=== PATIENT | female | born 1940 | race African-American/Black ===

== ENCOUNTER → 2016-05-25 | Outpatient (CLI) | payer MEDICARE ==
[2016-04-02 11:00] VITALS: BP 111/63
[~2016-05-25] MED LIST: ACET325T9 PO; ALLO300T PO; AMLO10TA4 PO; ASCO500T PO; ATOR10TA60 PO; ATORVASTATIN CA80 MG PO; CALC-67 PO; CALC667T PO; CLON0.1T PO; DOCU-27 PO; ESOM40SU PO; FERR325T58 PO; FURO80TA3 PO; FURO80TA72 PO; GLUC1CAP48 PO; HUM100VI5; HYDR-2869 PO; HYDR-923 PO; HYDR-965 PO; HYDR-971 PO; INSU100I13 SQ; INSU100I27 SQ; INSU100I9 SQ; INSU100V13 SQ; LATA2.5D3 EACHEYE; LEVO125T5 PO; LEVO175T5 PO; LISI-334 PO; LISI20TA PO; LISI40TA PO; METO5TAB4 PO; OMEP40CA5 PO; OXYC5TAB PO; POLY255P PO; POTA20PA8 PO; POTA20TA84 PO; PROC5TAB PO; SENN1TAB29 PO; SENN8.6C2 PO; TIMO5DRO26 EACHEYE; TIMO5DRO5 EACHEYE; TIMO5SOL4 EACHEYE; TORS20TA2 PO; TRIA10.8 NS
--- NOTE | 2016-05-25 12:24 | RAD ---
Radionuclide gastric emptying study, 05/25/2016: History: Nausea and vomiting The study was performed utilizing a solid test radiolabeled with 2.1 mCi of technetium 99m sulfur colloid. The time to half emptying of the test meal from the patient's stomach was estimated at 86 minutes. A normal T1/2 is 60 minutes +/- 30 minutes. IMPRESSION: Normal gastric emptying time
== END | disposition home or self-care (01) ==
LOC: NM 08:11
PROVIDERS: ATTEND Nurse Practitioner
DX: R11.2 Nausea with vomiting, unspecified (principal)
CPT/HCPCS: 78264; A9541

== ENCOUNTER 2016-06-15 15:13 | Emergency (ER) | payer MEDICARE ==
[~2016-06-15] VITALS: Ht 154.9 cm; Wt 89.4 kg
[2016-06-15] MEDS ORDERED: IV NORMAL SALINE 250ML 250 ML IV ONE (16:30)
[2016-06-15 17:16] LABS: BASO # 0.1 x10^3/uL (0.0-0.2); BASO % 2 % (0-3); EOS % 1 % (0-3); HEMATOCRIT 36.4 % (36.0-47.0); HEMOGLOBIN 11.7 g/dL (12.0-15.5); LYMPH # 1.8 x10^3/uL (1.0-4.8); LYMPH % 29 % (24-48); MEAN CORPUSCULAR HEMOGLOBIN 32 pg (25-35); MEAN CORPUSCULAR HGB CONC 32 g/dL (31-37); MEAN CORPUSCULAR VOLUME 100 fL (79-100); MONO % 8 % (0-9); NEUT % 60 % (31-73); PLATELET COUNT 289 x10^3/uL (140-400); RED BLOOD COUNT 3.64 x10^6/uL (3.50-5.40); RED CELL DISTRIBUTION WIDTH 18.6 % (11.5-14.5); WHITE BLOOD COUNT 6.3 x10^3/uL (4.0-11.0)
[2016-06-15 17:44] LABS: CALCIUM 8.7 mg/dL (8.5-10.1); GFR 8.2
[2016-06-15 17:55] LABS: ALBUMIN 1.8 g/dL (3.4-5.0); DIRECT BILIRUBIN 0.1 mg/dL (0.0-0.2); TOTAL BILIRUBIN 0.4 mg/dL (0.2-1.0); TOTAL PROTEIN 5.9 g/dL (6.4-8.2)
[2016-06-15 19:04] VITALS: BP 102/63
--- NOTE | 2016-06-15 19:32 | PHYS DOC ---
Past Medical History Past Medical History: Cancer, Diabetes-Type II, GERD, Glaucoma, Hypertension, Hypothyroid, Pancreatitis, Renal Failure Additional Past Medical Histor: CHOLESTEROL, bladder CA Past Surgical History: Cholecystectomy, Hysterectomy, Knee Replacement, Other Additional Past Surgical Histo: BLADDER CA TUMOR REMOVALS 2012, thyroidectomy, dialysis catheter placement Alcohol Use: None Drug Use: None Adult General Chief Complaint Chief Complaint: NAUSEA/VOMITING/DIARRHA HPI HPI 68-year-old female presenting to the emergency department with lightheadedness for the past 2 weeks. She denies chest pain shortness of breath abdominal pain nausea vomiting. She has a history of end-stage renal disease and currently undergoes peritoneal dialysis daily. Otherwise she denies headache fevers chills cough polyuria or dysuria. Review of systems is negative for chest pain shortness of breath nausea vomiting. All other review of systems is negative unless otherwise noted in history of present illness. Review of Systems Review of Systems SEE ABOVE. Current Medications Current Medications Current Medications Medications (Trade) Dose Ordered Sig/María Start Time Stop Time Status Last Admin Dose Admin Sodium Chloride (Iv Sodium Chloride 0.9% 250ml) 250 ml @ 250 mls/hr 1X ONCE 06/15/16 16:30 06/15/16 17:29 DC 06/15/16 16:30 250 MLS/HR Allergies Allergies Allergies Coded Allergies Type Severity Reaction Last Updated Verified Sulfa (Sulfonamide Antibiotics) Allergy Intermediate 03/12/16 Yes amlodipine Allergy Intermediate COUGH 03/12/16 Yes benazepril Allergy Intermediate COUGH 03/12/16 Yes morphine Allergy Intermediate HEADACHE 03/24/16 Yes Physical Exam Physical Exam Constitutional: Well developed, well nourished, no acute distress, non-toxic appearance. HENT: Normocephalic, atraumatic, bilateral external ears normal, oropharynx moist, no oral exudates, nose normal. Eyes: PERRLA, EOMI, conjunctiva normal, no discharge. Neck: Normal range of motion, no tenderness, supple, no stridor. [] Cardiovascular:Heart rate regular rhythm, no murmur Lungs & Thorax: Bilateral breath sounds clear to auscultation Abdomen: Soft nontender abdomen without rebound tenderness or guarding present. Negative McBurneys point. Negative Hameed sign. No ecchymosis present. Skin: Warm, dry, no erythema, no rash. [] Back: No tenderness, no CVA tenderness. [] Extremities: No tenderness, no cyanosis, no clubbing, ROM intact, no edema. Neurologic: Alert and oriented X 3, normal motor function, normal sensory function, no focal deficits noted. Psychologic: Affect normal, judgement normal, mood normal. Current Patient Data Vital Signs Vital Signs Date Time Temp Pulse Resp B/P Pulse Ox O2 Delivery O2 Flow Rate FiO2 06/15/16 19:04 96 18 102/63 Room Air 06/15/16 19:04 96 06/15/16 16:20 97.7 97.7 Lab Values Laboratory Tests Test 06/15/16 16:55 White Blood Count 6.3x10^3/uL (4.0-11.0) Red Blood Count 3.64x10^6/uL (3.50-5.40) Hemoglobin 11.7g/dL (12.0-15.5) L Hematocrit 36.4% (36.0-47.0) Mean Corpuscular Volume 100fL (79-100) Mean Corpuscular Hemoglobin 32pg (25-35) Mean Corpuscular Hemoglobin Concent 32g/dL (31-37) Red Cell Distribution Width 18.6% (11.5-14.5) H Platelet Count 289x10^3/uL (140-400) Neutrophils (%) (Auto) 60% (31-73) Lymphocytes (%) (Auto) 29% (24-48) Monocytes (%) (Auto) 8% (0-9) Eosinophils (%) (Auto) 1% (0-3) Basophils (%) (Auto) 2% (0-3) Neutrophils # (Auto) 3.8x10^3uL (1.8-7.7) Lymphocytes # (Auto) 1.8x10^3/uL (1.0-4.8) Monocytes # (Auto) 0.5x10^3/uL (0.0-1.1) Eosinophils # (Auto) 0.1x10^3/uL (0.0-0.7) Basophils # (Auto) 0.1x10^3/uL (0.0-0.2) Sodium Level 136mmol/L (136-145) Potassium Level 3.0mmol/L (3.5-5.1) L Chloride Level 96mmol/L (98-107) L Carbon Dioxide Level 31mmol/L (21-32) Anion Gap 9 (6-14) Blood Urea Nitrogen 23mg/dL (7-20) H Creatinine 6.0mg/dL (0.6-1.0) H Estimated GFR (Cockcroft-Gault) 8.2 Glucose Level 254mg/dL (70-99) H Lactic Acid Level 3.8mmol/L (0.4-2.0) H Calcium Level 8.7mg/dL (8.5-10.1) Total Bilirubin 0.4mg/dL (0.2-1.0) Direct Bilirubin 0.1mg/dL (0.0-0.2) Aspartate Amino Transferase (AST) 33U/L (15-37) Alanine Aminotransferase (ALT) 32U/L (14-59) Alkaline Phosphatase 94U/L (46-116) Troponin I Quantitative < 0.017ng/mL (0.000-0.055) OZ-Abe-W-Type Natriuretic Peptide 917pg/mL (0-449) H Total Protein 5.9g/dL (6.4-8.2) L Albumin 1.8g/dL (3.4-5.0) L Lipase 311U/L (73-393) Laboratory Tests 06/15/16 16:55 Laboratory Tests 06/15/16 16:55 EKG EKG [] EKG shows sinus rhythm with a regular rate. Small P waves identified. ST segments are congruent. Variable baseline present. Intervals within normal limits. [place] is mildly leftward. Radiology/Procedures Radiology/Procedures [] Course & Med Decision Making Course & Med Decision Making Pertinent Labs and Imaging studies reviewed. (See chart for details) [] 68-year-old female presenting to us today with lightheadedness consistent with orthostasis. Otherwise she was asymptomatic. She reported feeling dehydrated. Vital signs unremarkable. Physical exam unremarkable. Chest x-ray showed no obvious infiltrate or pneumothorax. EKG unremarkable. IV fluid bolus administration given. Blood work obtained which showed mild anemia. Chemistry panel showed hyperglycemia with known end-stage renal disease. Potassium was mildly low. Otherwise lactic acid was elevated not consistent with the rest of the patient's clinical presentation. On reevaluation the patient was feeling better. She was subsequent discharged home to follow up with her primary care doctor tomorrow morning for close follow-up and probable repeat lactic acid testing. I discussed the case with the patient's primary care physician Dr. Gonzalez who agreed to see the patient in a close follow-up visit. Dragon Disclaimer Dragon Disclaimer This electronic medical record was generated, in whole or in part, using a voice recognition dictation system. Departure Departure Impression: Primary Impression: Dehydration Disposition: 01 HOME, SELF-CARE Condition: STABLE Referrals: JOSE LUIS GONZALEZ MD (PCP) follow up tommorow Patient Instructions: Dehydration, Adult Additional Instructions: Thank you for allowing us to participate in your care today. Followup with your primary care physician tomorrow. If you do not have a primary care provider you can ask for a list of our primary care providers. Return to the emergency department you have any new or concerning findings. This should be evaluated by the primary care physician and any necessary consulting services for continued management within a few days after discharge. Return to emergency room if you have any new or concerning symptoms including but not limited to fever, chills, nausea, vomiting, intractable pain, any new rashes, chest pain, shortness of air, uncontrolled bleeding, difficulty breathing, and/or vision loss. NIDIA LARA MD Jun 15, 2016 19:32
--- NOTE | 2016-06-16 06:47 | EKG ---
[facility] [address] [place] [address] Test Date: 2016-06-15 Test Time: 16:55:49 Pat Name: CLARISSA PGUH Department: Room: Gender: F Reference Librarian: : 1940 Requested By: NIDIA LARA Order Number: [id number] Reading MD: Measurements Intervals [place] Rate: 77 P: 39 IA: 182 QRS: -22 QRSD: 76 T: -9 QT: 390 QTc: 443 Interpretive Statements SINUS RHYTHM LEFTWARD AXIS OTHERWISE NORMAL ECG RI6.01 No previous ECG available for comparison
--- NOTE | 2016-06-16 08:26 | RAD ---
INDICATION: nausea and vomiting COMPARISON: 03/28/2016 FINDINGS: Single view of chest obtained. No focal airspace consolidation. Mediastinal contour is unremarkable. No gross osseous destructive lesion. IMPRESSION: No focal airspace consolidation or edema.
== END 2016-06-15 19:43 | disposition home or self-care (01) ==
LOC: ER 15:13
DX: E86.0 Dehydration (principal); E11.22 Type 2 diabetes mellitus with diabetic chronic kidney disease; I12.0 Hypertensive chronic kidney disease with stage 5 chronic kidney disease or end stage renal disease; N18.6 End stage renal disease; Z99.2 Dependence on renal dialysis; E11.39 Type 2 diabetes mellitus with other diabetic ophthalmic complication; H40.9 Unspecified glaucoma; E89.0 Postprocedural hypothyroidism; K21.9 Gastro-esophageal reflux disease without esophagitis; Z90.49 Acquired absence of other specified parts of digestive tract; Z90.710 Acquired absence of both cervix and uterus; Z96.659 Presence of unspecified artificial knee joint; Z88.5 Allergy status to narcotic agent; Z88.2 Allergy status to sulfonamides; Z88.8 Allergy status to other drugs, medicaments and biological substances
CPT/HCPCS: 36415; 71010; 80048; 80076; 83605; 83690; 83880; 84484; 85027; 93005; 96360; 96361; 99285; J7050; J7030

== ENCOUNTER 2016-06-23 16:14 | Inpatient (IN) | payer MEDICARE ==
[~2016-06-23] VITALS: Ht 154.9 cm; Wt 94.6 kg
[2016-06-23 03:00] VITALS: BP 174/87
[2016-06-23 17:28] LABS: BASO % 1 % (0-3); EOS % 0 % (0-3); HEMOGLOBIN 11.8 g/dL (12.0-15.5); LYMPH # 1.6 x10^3/uL (1.0-4.8); LYMPH % 26 % (24-48); MEAN CORPUSCULAR HEMOGLOBIN 32 pg (25-35); MEAN CORPUSCULAR HGB CONC 33 g/dL (31-37); MEAN CORPUSCULAR VOLUME 98 fL (79-100); MONO % 8 % (0-9); NEUT % 65 % (31-73); PLATELET COUNT 312 x10^3/uL (140-400); RED BLOOD COUNT 3.67 x10^6/uL (3.50-5.40); RED CELL DISTRIBUTION WIDTH 17.7 % (11.5-14.5)
[2016-06-23] MEDS ORDERED: IV NORMAL SALINE 500ML BAG 500 ML IV ONE (17:30)
[2016-06-23 17:46] LABS: ALBUMIN 1.9 g/dL (3.4-5.0); CALCIUM 8.6 mg/dL (8.5-10.1); CREATININE 5.8 mg/dL (0.6-1.0); DIRECT BILIRUBIN 0.1 mg/dL (0.0-0.2); GFR 8.5; TOTAL BILIRUBIN 0.8 mg/dL (0.2-1.0); TOTAL PROTEIN 5.5 g/dL (6.4-8.2)
[2016-06-23 17:50] LABS: POTASSIUM 2.9 mmol/L (3.5-5.1)
[2016-06-23 19:00] VITALS: BP 130/76
[2016-06-23] MEDS ORDERED: POTASSIUM CHLORIDE 20 MEQ TABLET.ER. PO ONE (19:15)
--- NOTE | 2016-06-23 19:17 | PHYS DOC ---
Past Medical History Past Medical History: Cancer, Diabetes-Type II, GERD, Glaucoma, Hypertension, Hypothyroid, Pancreatitis, Renal Failure Additional Past Medical Histor: CHOLESTEROL, bladder CA Past Surgical History: Cholecystectomy, Hysterectomy, Knee Replacement, Other Additional Past Surgical Histo: BLADDER CA TUMOR REMOVALS 2012, thyroidectomy, dialysis catheter placement Alcohol Use: None Drug Use: None Adult General Chief Complaint Chief Complaint: NAUSEA/VOMITING/DIARRHA HPI HPI 76-year-old female presenting to the emergency department today with nausea and vomiting. She also complains of feeling weak. She was seen here last week for the same illness and discharged home. She reports following up with her primary care physician who instructed her to come back to the emergency room today. Her symptoms and present for greater than 8 days. Location GI tract. Duration intermittent. She denies abdominal pain fevers or chills. She denies upper respiratory tract infection. Nonradiating. Review of systems is negative for chest pain abdominal pain shortness of breath. Negative for fevers or chills. All other review of systems is negative unless otherwise noted in history of present illness. Review of Systems Review of Systems SEE ABOVE. Current Medications Current Medications Current Medications Medications (Trade) Dose Ordered Sig/María Start Time Stop Time Status Last Admin Dose Admin Ondansetron HCl (Zofran) 4 mg PRN Q8HRS PRN 06/23/16 18:15 06/24/16 18:14 Sodium Chloride (Iv Sodium Chloride 0.9% 500ml Bag) 500 ml @ 500 mls/hr 1X ONCE 06/23/16 17:30 06/23/16 18:29 DC 06/23/16 17:30 500 MLS/HR Allergies Allergies Allergies Coded Allergies Type Severity Reaction Last Updated Verified Sulfa (Sulfonamide Antibiotics) Allergy Intermediate 03/12/16 Yes amlodipine Allergy Intermediate COUGH 03/12/16 Yes benazepril Allergy Intermediate COUGH 03/12/16 Yes morphine Allergy Intermediate HEADACHE 03/24/16 Yes Physical Exam Physical Exam Constitutional: Well developed, well nourished, no acute distress, non-toxic appearance. HENT: Normocephalic, atraumatic, bilateral external ears normal, oropharynx moist, no oral exudates, nose normal. [] Eyes: PERRLA, EOMI, conjunctiva normal, no discharge. [] Neck: Normal range of motion, no tenderness, supple, no stridor. Cardiovascular:Heart rate regular rhythm, no murmur [] Lungs & Thorax: Bilateral breath sounds clear to auscultation Abdomen: Soft nontender abdomen without rebound tenderness or guarding present. Negative McBurneys point. Negative Hameed sign. No ecchymosis present. Skin: Warm, dry, no erythema, no rash. [] Back: No tenderness, no CVA tenderness. Extremities: No tenderness, no cyanosis, no clubbing, ROM intact, no edema. [] Neurologic: Alert and oriented X 3, normal motor function, normal sensory function, no focal deficits noted. Psychologic: Affect normal, judgement normal, mood normal. [] Current Patient Data Vital Signs Vital Signs Date Time Temp Pulse Resp B/P Pulse Ox O2 Delivery O2 Flow Rate FiO2 06/23/16 16:33 70 18 102/63 99 Room Air Lab Values Laboratory Tests Test 06/23/16 16:45 White Blood Count 6.0x10^3/uL (4.0-11.0) Red Blood Count 3.67x10^6/uL (3.50-5.40) Hemoglobin 11.8g/dL (12.0-15.5) L Hematocrit 36.0% (36.0-47.0) Mean Corpuscular Volume 98fL (79-100) Mean Corpuscular Hemoglobin 32pg (25-35) Mean Corpuscular Hemoglobin Concent 33g/dL (31-37) Red Cell Distribution Width 17.7% (11.5-14.5) H Platelet Count 312x10^3/uL (140-400) Neutrophils (%) (Auto) 65% (31-73) Lymphocytes (%) (Auto) 26% (24-48) Monocytes (%) (Auto) 8% (0-9) Eosinophils (%) (Auto) 0% (0-3) Basophils (%) (Auto) 1% (0-3) Neutrophils # (Auto) 3.9x10^3uL (1.8-7.7) Lymphocytes # (Auto) 1.6x10^3/uL (1.0-4.8) Monocytes # (Auto) 0.5x10^3/uL (0.0-1.1) Eosinophils # (Auto) 0.0x10^3/uL (0.0-0.7) Basophils # (Auto) 0.0x10^3/uL (0.0-0.2) Sodium Level 136mmol/L (136-145) Potassium Level 2.9mmol/L (3.5-5.1) *L Chloride Level 96mmol/L (98-107) L Carbon Dioxide Level 28mmol/L (21-32) Anion Gap 12 (6-14) Blood Urea Nitrogen 18mg/dL (7-20) Creatinine 5.8mg/dL (0.6-1.0) H Estimated GFR (Cockcroft-Gault) 8.5 Glucose Level 128mg/dL (70-99) H Calcium Level 8.6mg/dL (8.5-10.1) Total Bilirubin 0.8mg/dL (0.2-1.0) Direct Bilirubin 0.1mg/dL (0.0-0.2) Aspartate Amino Transferase (AST) 24U/L (15-37) Alanine Aminotransferase (ALT) 30U/L (14-59) Alkaline Phosphatase 95U/L (46-116) Troponin I Quantitative < 0.017ng/mL (0.000-0.055) Total Protein 5.5g/dL (6.4-8.2) L Albumin 1.9g/dL (3.4-5.0) L Lipase 238U/L (73-393) Laboratory Tests 06/23/16 16:45 Laboratory Tests 06/23/16 16:45 EKG EKG EKG shows sinus rhythm with a regular rate. QRS within normal limits. ST segments congruent. [place] of leftward. [] Radiology/Procedures Radiology/Procedures [] Course & Med Decision Making Course & Med Decision Making Pertinent Labs and Imaging studies reviewed. (See chart for details) [] 68-year-old female presenting to the emergency department today with weakness nausea and vomiting. On examination the patient's temperature was afebrile. Otherwise heart rate within normal limits. Blood pressure mildly low at 100 systolic. Blood work obtained. IV access obtained. IV fluids administered. Potassium ordered. CBC showed mild anemia. Otherwise chemistry panel showed elevated creatinine and low albumin. Given the patient's outpatient failure therapy the patient was admitted to our hospital for further evaluation workup and care. Dragon Disclaimer Dragon Disclaimer This electronic medical record was generated, in whole or in part, using a voice recognition dictation system. Departure Departure Impression: Primary Impression: Nausea & vomiting Additional Impression: Hypovolemia Disposition: 09 ADMITTED INPATIENT Admitting Physician: Oleg Gonzalez Condition: STABLE Referrals: OLEG GONZALEZ MD (PCP) Problem Qualifiers NIDIA LARA MD Jun 23, 2016 19:17
--- NOTE | 2016-06-23 19:33 | RAD ---
PROCEDURE CT abdomen and pelvis without contrast HISTORY Nausea and vomiting and history pancreatitis TECHNIQUE Noncontrast helical CT scanning of the abdomen and pelvis was performed. Without GI contrast, the sensitivity to detect GI tract pathology is decreased. Without IV contrast, the sensitivity to detect organ pathology is decreased. COMPARISON March 24, 2016 FINDINGS The liver is homogeneous. The portal vein is not well seen. There is a trace of free fluid around the liver and in the right paracolic gutter. The appendix is not well seen. The spleen is homogeneous appearance on this noncontrast study and is normal in size. The pancreas is homogeneous appearance on this noncontrast study and is not enlarged. The gallbladder has been removed. No adrenal masses are seen. There are renal cysts bilaterally. The kidneys are mildly small. The urinary bladder is partially collapsed. There is some air within the urinary bladder. No focal aneurysmal dilatation of the abdominal aorta is seen. No enlarged abdominal or pelvic lymphadenopathy is seen. There is a peritoneal dialysis catheter which enters from the left hemipelvis. There is mild free air. There is a moderate-sized umbilical hernia. There is a trace of free fluid in the pelvis. Fluid tracking along the peritoneal catheter tract was seen previously but appears increased. No obstructive bowel pattern or inflammatory changes are seen. The lung bases are clear. No osteolytic process is seen. IMPRESSION One. Mild free air and mild free fluid is consistent with the peritoneal dialysis. 2. Air within the urinary bladder is presumably secondary to instrumentation. 3. Stable appearance of the abdomen and pelvis. Electronically signed by: Adrian Thrasher MD (Jun 23, 2016 19:32:06)
[2016-06-23] MEDS: ONDANSETRON PF 4 MG/2 ML VIAL. IV PRN (20:54)
[2016-06-23] MEDS ORDERED: PARO10TA24 PO (21:45)
[2016-06-23] MEDS ORDERED: MIDO5TAB PO (21:45)
[2016-06-23] MEDS ORDERED: TRAM50TA PO (21:45)
[2016-06-23] MEDS ORDERED: OXYCODONE IR 5 MG TABLET. PO PRN (22:00)
[2016-06-23] MEDS ORDERED: DEXTROSE 50% 25 GM / 50ML DISP.SYRIN. IV PRN (22:00)
[2016-06-23] MEDS ORDERED: ACETAMINOPHEN 325 MG TABLET. PO PRN (22:00)
[2016-06-23] MEDS ORDERED: TRAMADOL 50 MG TABLET. PO PRN (22:00)
[2016-06-23] MEDS: INSULIN DETEMIR 300 UNITS/3 ML INSULN.PEN. SQ SCH (22:38)
[2016-06-23 23:00] VITALS: BP 163/82
[2016-06-23] MEDS: TEMAZEPAM 15 MG CAPSULE PO PRN (23:04)
[2016-06-24 03:00] VITALS: BP 174/87
[2016-06-24 04:15] LABS: BASO # 0.1 x10^3/uL (0.0-0.2); BASO % 1 % (0-3); EOS % 1 % (0-3); HEMATOCRIT 32.8 % (36.0-47.0); HEMOGLOBIN 10.6 g/dL (12.0-15.5); LYMPH # 1.8 x10^3/uL (1.0-4.8); LYMPH % 35 % (24-48); MEAN CORPUSCULAR HEMOGLOBIN 33 pg (25-35); MEAN CORPUSCULAR HGB CONC 32 g/dL (31-37); MEAN CORPUSCULAR VOLUME 101 fL (79-100); MONO % 12 % (0-9); NEUT % 51 % (31-73); PLATELET COUNT 250 x10^3/uL (140-400); RED BLOOD COUNT 3.26 x10^6/uL (3.50-5.40); RED CELL DISTRIBUTION WIDTH 17.5 % (11.5-14.5); WHITE BLOOD COUNT 5.3 x10^3/uL (4.0-11.0)
[2016-06-24 04:34] LABS: ALBUMIN 1.5 g/dL (3.4-5.0); ALBUMIN/GLOBULIN RATIO 0.5 (1.0-1.7); CALCIUM 8.2 mg/dL (8.5-10.1); CREATININE 5.9 mg/dL (0.6-1.0); GFR 8.4; POTASSIUM 3.8 mmol/L (3.5-5.1); TOTAL BILIRUBIN 0.8 mg/dL (0.2-1.0); TOTAL PROTEIN 4.7 g/dL (6.4-8.2)
[2016-06-24] MEDS: LEVOTHYROXINE 175 MCG TABLET PO SCH (06:10)
--- NOTE | 2016-06-24 06:10 | EKG ---
[facility] [address] [place] [address] Test Date: 2016-06-23 Test Time: 18:04:04 Pat Name: CLARISSA PUGH Department: Room: [facility] Gender: F Ob Tech: : 1940 Requested By: NIDIA LARA Order Number: [id number] Reading MD: Madison Finney Measurements Intervals [place] Rate: 67 P: 36 CO: 176 QRS: -21 QRSD: 78 T: -12 QT: 496 QTc: 528 Interpretive Statements SINUS RHYTHM LEFTWARD AXIS PROLONGED QT RI6.01 Unconfirmed report Compared to ECG 03/24/2016 14:18:50 Left-axis deviation now present Prolonged QT interval now present Electronically Signed On 06-27-2016 20:20:36 [employer] by Madison Finney
[2016-06-24 07:00] VITALS: BP 125/88
[2016-06-24] MEDS ORDERED: MIDODRINE 2.5 MG TABLET PO SCH (07:00)
[2016-06-24] MEDS ORDERED: MIDODRINE 2.5 MG TABLET PO PRN (07:00)
--- NOTE | 2016-06-24 07:56 | PDOC ---
Provider Note Provider Note [id number] JOSE LUIS TEIXEIRA MD Jun 24, 2016 07:56
[2016-06-24] MEDS ORDERED: LISINOPRIL 20 MG TABLET PO SCH (09:00)
[2016-06-24] MEDS ORDERED: METOLAZONE 2.5 MG TABLET PO SCH (09:00)
[2016-06-24] MEDS ORDERED: TORSEMIDE 20 MG TABLET. PO SCH (09:00)
[2016-06-24] MEDS ORDERED: FUROSEMIDE 80 MG TABLET PO SCH (09:00)
[2016-06-24] MEDS: PANTOPRAZOLE 40 MG TABLET. PO SCH (09:23)
--- NOTE | 2016-06-24 09:23 | HP ---
ADMIT DATE: 06/24/2016 CHIEF COMPLAINT: Persistent nausea and vomiting. HISTORY OF PRESENT ILLNESS: A 76-year-old black female with end-stage renal disease, who was on home peritoneal dialysis has been having ongoing nausea and vomiting for the last 2-3 months. She had an outpatient gastric emptying study about one month ago, which was within normal limits and has not seen a GI doctor recently about this. She takes omeprazole at home, but continues to have ongoing nausea and postprandial emesis. There is no hematemesis, melena, hematochezia, fever, chills or abdominal pain and these symptoms are different when she was in the hospital two months ago with persistent epigastric pain and elevated lipase. PAST MEDICAL HISTORY: Multiple. MEDICATIONS: Listed per the chart. ALLERGIES: SULFA, BENAZEPRIL, AMLODIPINE is noted. SOCIAL HISTORY: Single, nonsmoker, nondrinker, lives with family, not physically active because of her medical problems. FAMILY HISTORY: Unremarkable. REVIEW OF SYSTEMS: No other known problems. OBJECTIVE: ENT: Sclerae are clear. TMs and pharynx unremarkable. NECK: Revealed no masses, nodes or thyroid enlargement. LUNGS: Clear with no tachypnea. CARDIOVASCULAR: Regular rate. No irregular beat or murmur. ABDOMEN: Soft, benign and relatively nontender, no masses or megaly or nodes. EXTREMITIES: Decreased pedal and radial pulses. SKIN: Dry, skin turgor decreased. No joint or skin lesions. NEUROLOGIC: Physiologic, nonfocal. Alert, oriented and no tremors are noted. ASSESSMENT: Persistent nausea and vomiting, etiology unclear. Does not appear to have recurrent pancreatitis, gastroparesis or any obvious medication problems. She is already on PPI. PLAN: We will add Carafate, pending GI consultation for possible EGD. The hypokalemia, she presented with is resolved and renal will see her as well. JOSE LUIS TEIXEIRA MD DR: LATOYA/rahul JOB#: [id number] / [id number]
[2016-06-24] MEDS: SUCRALFATE 1 GM TABLET. PO SCH ×4 (09:24→20:56)
[2016-06-24] MEDS: POTASSIUM CHLORIDE 20 MEQ TABLET.ER. PO SCH (09:24)
[2016-06-24] MEDS: CALCIUM ACETATE 667 MG CAPSULE PO SCH ×3 (09:24→17:40)
[2016-06-24] MEDS: TIMOLOL 0.25% OPHTH SOLUTION 5ML BOTTLE. OU SCH ×2 (09:24→20:56)
[2016-06-24] MEDS: PAROXETINE 10 MG TABLET. PO SCH (09:24)
[2016-06-24] MEDS: PROCHLORPERAZINE 5 MG TABLET. PO SCH (09:24)
[2016-06-24] MEDS: POLYETHYLENE GLYCOL 3350 17 GM PACKET. PO SCH (09:25)
[2016-06-24] MEDS: INSULIN ASPART 300 UNITS/3 ML INSULN.PEN SQ SCH ×3 (09:30→17:46)
--- NOTE | 2016-06-24 10:20 | PDOC2 ---
GI CONSULT Reason For Consult: N/v HPI: HPI: 76 y/o female well known to GI service. Previously seen for persistently elevated lipase, abd pain. Workup includes: CT A/P (stranding around the head and neck of pancreas - most recent study appears normal), elevated CA 19-9 (84) , MRCP (unrevealing), EGD (non-erosive gastritis and hiatal hernia), EUS (at [facility] w/ chronic pancreatitis), normal GET, and reportedly normal colonoscopy 2-3 years ago. Asked to see again on this occasion for n/v which she says has been ongoing intermittently w/ weight loss since previous admissions but worse since . She says vomiting occurs most often when she coughs while eating. Denies abd pain, GERD symptoms (is on PPI here), dysphagia. Does have h/o constipation on Miralax. PMH: PMH: per HPI, DM, GERD, constipation, HTN, hypothyroidism, ESRD on PD, HLD, bladder cancer, cholecystectomy, hysterectomy, knee surgery, thyroidectomy, PD catheter , bladder tumor removal, normal colonoscopy ~ 2-3 years ago FH: Family History: No pertinent hx Social History: ALCOHOL: none Drugs: None ROS: GEN: Denies fevers, chills, sweats HEENT: Denies blurred vision, sore throat CV: Denies chest pain RESP: Denies shortness of air, cough GI: Per HPI : Denies hematuria, dysuria ENDO: Denies weight changes NEURO: Denies confusion, dizziness MSK: Denies weakness, joint pain/swelling SKIN: Denies jaundice, pruritus VItals: Vitals: Vital Signs Date Time Temp Pulse Resp B/P Pulse Ox O2 Delivery O2 Flow Rate FiO2 06/24/16 09:26 83 125/88 06/24/16 07:00 96.6 20 93 Room Air 96.6 Labs: Labs: Laboratory Tests Test 06/23/16 16:45 06/24/16 03:47 06/24/16 09:21 White Blood Count 6.0x10^3/uL (4.0-11.0) 5.3x10^3/uL (4.0-11.0) Red Blood Count 3.67x10^6/uL (3.50-5.40) 3.26x10^6/uL (3.50-5.40) Hemoglobin 11.8g/dL (12.0-15.5) 10.6g/dL (12.0-15.5) Hematocrit 36.0% (36.0-47.0) 32.8% (36.0-47.0) Mean Corpuscular Volume 98fL (79-100) 101fL (79-100) Mean Corpuscular Hemoglobin 32pg (25-35) 33pg (25-35) Mean Corpuscular Hemoglobin Concent 33g/dL (31-37) 32g/dL (31-37) Red Cell Distribution Width 17.7% (11.5-14.5) 17.5% (11.5-14.5) Platelet Count 312x10^3/uL (140-400) 250x10^3/uL (140-400) Neutrophils (%) (Auto) 65% (31-73) 51% (31-73) Lymphocytes (%) (Auto) 26% (24-48) 35% (24-48) Monocytes (%) (Auto) 8% (0-9) 12% (0-9) Eosinophils (%) (Auto) 0% (0-3) 1% (0-3) Basophils (%) (Auto) 1% (0-3) 1% (0-3) Neutrophils # (Auto) 3.9x10^3uL (1.8-7.7) 2.7x10^3uL (1.8-7.7) Lymphocytes # (Auto) 1.6x10^3/uL (1.0-4.8) 1.8x10^3/uL (1.0-4.8) Monocytes # (Auto) 0.5x10^3/uL (0.0-1.1) 0.6x10^3/uL (0.0-1.1) Eosinophils # (Auto) 0.0x10^3/uL (0.0-0.7) 0.1x10^3/uL (0.0-0.7) Basophils # (Auto) 0.0x10^3/uL (0.0-0.2) 0.1x10^3/uL (0.0-0.2) Sodium Level 136mmol/L (136-145) 136mmol/L (136-145) Potassium Level 2.9mmol/L (3.5-5.1) 3.8mmol/L (3.5-5.1) Chloride Level 96mmol/L (98-107) 99mmol/L (98-107) Carbon Dioxide Level 28mmol/L (21-32) 28mmol/L (21-32) Anion Gap 12 (6-14) 9 (6-14) Blood Urea Nitrogen 18mg/dL (7-20) 20mg/dL (7-20) Creatinine 5.8mg/dL (0.6-1.0) 5.9mg/dL (0.6-1.0) Estimated GFR (Cockcroft-Gault) 8.5 8.4 Glucose Level 128mg/dL (70-99) 132mg/dL (70-99) Calcium Level 8.6mg/dL (8.5-10.1) 8.2mg/dL (8.5-10.1) Total Bilirubin 0.8mg/dL (0.2-1.0) 0.8mg/dL (0.2-1.0) Direct Bilirubin 0.1mg/dL (0.0-0.2) Aspartate Amino Transf (AST/SGOT) 24U/L (15-37) 26U/L (15-37) Alanine Aminotransferase (ALT/SGPT) 30U/L (14-59) 24U/L (14-59) Alkaline Phosphatase 95U/L (46-116) 93U/L (46-116) Troponin I Quantitative < 0.017ng/mL (0.000-0.055) Total Protein 5.5g/dL (6.4-8.2) 4.7g/dL (6.4-8.2) Albumin 1.9g/dL (3.4-5.0) 1.5g/dL (3.4-5.0) Lipase 238U/L (73-393) BUN/Creatinine Ratio 3 (6-20) Albumin/Globulin Ratio 0.5 (1.0-1.7) Glucose (Fingerstick) 223mg/dL (70-99) Allergies: Coded Allergies: Sulfa (Sulfonamide Antibiotics) (Verified Allergy, Intermediate, 03/12/16) amlodipine (Verified Allergy, Intermediate, COUGH, 03/12/16) benazepril (Verified Allergy, Intermediate, COUGH, 03/12/16) morphine (Verified Allergy, Intermediate, HEADACHE, 03/24/16) Medications: Current Medications Medications (Trade) Dose Ordered Sig/María Route PRN Reason Start Time Stop Time Status Last Admin Dose Admin Sodium Chloride (Iv Sodium Chloride 0.9% 500ml Bag) 500 ml @ 500 mls/hr 1X ONCE IV 06/23/16 17:30 06/23/16 18:29 DC 06/23/16 17:30 Ondansetron HCl (Zofran) 4 mg PRN Q8HRS PRN IV NAUSEA/VOMITING 06/23/16 18:15 06/24/16 18:14 06/23/16 20:54 Potassium Chloride (Klor-Con) 40 meq 1X ONCE PO 06/23/16 19:15 06/23/16 19:17 DC 06/23/16 20:54 Levothyroxine Sodium (Synthroid) 175 mcg DAILY07 PO 06/24/16 07:00 06/24/16 06:10 Lisinopril (Prinivil) 20 mg DAILY PO 06/24/16 09:00 06/24/16 09:26 Paroxetine HCl (Paxil) 10 mg DAILY PO 06/24/16 09:00 06/24/16 09:24 Polyethylene Glycol (miraLAX PACKET) 17 gm DAILY PO 06/24/16 09:00 06/24/16 09:25 Prochlorperazine Maleate (Compazine) 5 mg DAILY PO 06/24/16 09:00 06/24/16 09:24 Torsemide (Demadex) 40 mg BID94 PO 06/24/16 09:00 06/24/16 09:24 Calcium Acetate (Phoslo) 1,334 mg TIDWMEALS PO 06/24/16 08:00 06/24/16 09:24 Metolazone (Zaroxolyn) 5 mg DAILY PO 06/24/16 09:00 06/24/16 09:24 Pantoprazole Sodium (Protonix) 40 mg DAILYAC PO 06/24/16 07:30 06/24/16 09:23 Potassium Chloride (Klor-Con) 20 meq DAILYWBKFT PO 06/24/16 08:00 06/24/16 09:24 Timolol Maleate (Timoptic 0.25% Ophth) 1 drop BID OU 06/24/16 09:00 06/24/16 09:24 Insulin Aspart (Novolog) 0-5 UNITS TIDWMEALS SQ 06/24/16 08:00 06/24/16 09:30 Temazepam (Restoril) 15 mg PRN QHS PRN PO INSOMNIA 06/23/16 23:00 06/23/16 23:04 Sucralfate (Carafate) 1 gm QIDACHS PO 06/24/16 08:00 06/24/16 09:24 Imaging: Imaging: CT A/P IMPRESSION 1. Mild free air and mild free fluid is consistent with the peritoneal dialysis. 2. Air within the urinary bladder is presumably secondary to instrumentation. 3. Stable appearance of the abdomen and pelvis. PE: GEN: NAD, up to chair HEENT: Atraumatic, PERRL LUNGS: CTAB anteriorly HEART: RRR ABD: NABS, S/ND/NT, PD catheter SKIN: No rashes, no jaundice NEURO/PSYCH: A & O 3, left hand tremor A/P: A/P: N/v -chronic w/ extensive GI workup as above w/ CTs, MRCP, EUS, EGD, GET -occurs when coughing while eating -on PPI -s/p cholecystectomy -- Will review w/ Dr. Rodriguez. LEENA DAVIS Jun 24, 2016 10:20
[2016-06-24 10:21] VITALS: BP 135/73
[2016-06-24 14:14] VITALS: BP 109/67
[2016-06-24] MEDS ORDERED: MAGNESIUM SULFATE 2GM 50 ML IV PRN (14:30)
--- NOTE | 2016-06-24 14:30 | PDOC2 ---
CONSULT Date of Consult Date of Consult DATE: 06/24/16 TIME: 14:22 Reason for Consult Reason for Consult: ESRD on PD Referring Physician Referring Physician: Dr Gonzalez Identification/Chief Complaint Chief Complaint NV Problems: Source Source: Chart review, Patient History of Present Illness Reason for Visit: as dictated Past Medical History Cardiovascular: HTN Pulmonary: No pertinent hx CENTRAL NERVOUS SYSTEM: Other GI: GERD Heme/Onc: Anemia NOS, Cancer Hepatobiliary: No pertinent hx Psych: No pertinent hx Musculoskeletal: Osteoarthritis Rheumatologic: No pertinent hx Infectious disease: No pertinent hx Renal/: Chronic renal failure Endocrine: Diabetes Past Surgical History Past Surgical History: Cholecystectomy, Total knee replacement, Hysterectomy, Other Family History Family History: No Significant, Diabetes, Hypertension Social History ALCOHOL: none Drugs: None Lives: with Family Current Problem List Problem List Problems Medical Problems: (1) Hypovolemia Status: Acute (2) Nausea & vomiting Status: Acute Current Medications Current Medications Current Medications Sodium Chloride (Iv Sodium Chloride 0.9% 500ml Bag) 500 ml @ 500 mls/hr 1X ONCE IV Last administered on 06/23/16 17:30; Start 06/23/16 at 17:30; Stop at 18:29; Status DC Ondansetron HCl (Zofran) 4 mg PRN Q8HRS PRN IV NAUSEA/VOMITING Last administered on 06/23/16 20:54; Start 06/23/16 at 18:15; Stop 06/24/16 at 18:14 Potassium Chloride (Klor-Con) 40 meq 1X ONCE PO Last administered on 20:54; Start 06/23/16 at 19:15; Stop 06/23/16 at 19:17; Status DC Acetaminophen (Tylenol) 325 mg PRN Q6HRS PRN PO MILD PAIN; Start 06/23/16 at 22 :00 Furosemide (Lasix) 80 mg DAILY PO ; Start 06/24/16 at 09:00; Stop 06/24/16 at 09 :00; Status DC Insulin Detemir (Levemir) 22 units HS SQ ; Start 06/23/16 at 23:00 Latanoprost (Xalatan) 1 drop QHS OU ; Start 06/24/16 at 21:00 Levothyroxine Sodium (Synthroid) 175 mcg DAILY07 PO Last administered on 06:10; Start 06/24/16 at 07:00 Lisinopril (Prinivil) 20 mg DAILY PO Last administered on 06/24/16 09:26; Start 06/24/16 at 09:00 Midodrine (Proamatine) 5 mg DAM694 PO ; Start 06/24/16 at 07:00; Stop 06/24/16 at 07:00; Status DC Oxycodone HCl (Roxicodone) 5 mg PRN Q6HRS PRN PO MODERATE PAIN; Start 06/23/16 at 22:00 Paroxetine HCl (Paxil) 10 mg DAILY PO Last administered on 06/24/16 09:24; Start 06/24/16 at 09:00 Polyethylene Glycol (miraLAX PACKET) 17 gm DAILY PO Last administered on 09:25; Start 06/24/16 at 09:00 Prochlorperazine Maleate (Compazine) 5 mg DAILY PO Last administered on 09:24; Start 06/24/16 at 09:00 Torsemide (Demadex) 40 mg BID94 PO Last administered on 06/24/16 09:24; Start 06/24/16 at 09:00 Tramadol HCl (Ultram) 50 mg PRN BID PRN PO MILD PAIN; Start 06/23/16 at 22:00 Atorvastatin Calcium (Lipitor) 80 mg QHS PO ; Start 06/24/16 at 21:00 Calcium Acetate (Phoslo) 1,334 mg TIDWMEALS PO Last administered on 06/24/16 12:32; Start 06/24/16 at 08:00 Non-Formulary Medication 18 unit QHS SQ ; Start 06/24/16 at 21:00; Status UNV Metolazone (Zaroxolyn) 5 mg DAILY PO Last administered on 06/24/16 09:24; Start 06/24/16 at 09:00 Pantoprazole Sodium (Protonix) 40 mg DAILYAC PO Last administered on 06/24/16 09:23; Start 06/24/16 at 07:30 Potassium Chloride (Klor-Con) 20 meq DAILYWBKFT PO Last administered on 09:24; Start 06/24/16 at 08:00 Timolol Maleate (Timoptic 0.25% Ophth) 1 drop BID OU Last administered on 09:24; Start 06/24/16 at 09:00 Insulin Aspart (Novolog) 0-5 UNITS TIDWMEALS SQ Last administered on 06/24/16 09:30; Start 06/24/16 at 08:00 Dextrose 12.5 gm PRN Q15MIN PRN IV SEE COMMENTS; Start 06/23/16 at 22:00 Oxycodone HCl (Roxicodone) 10 mg PRN Q6HRS PRN PO SEVERE PAIN; Start 06/23/16 at 22:30 Temazepam (Restoril) 15 mg PRN QHS PRN PO INSOMNIA Last administered on 23:04; Start 06/23/16 at 23:00 Midodrine (Proamatine) 5 mg TID PRN PRN PO SEE COMMENTS; Start 06/24/16 at 07: 00 Sucralfate (Carafate) 1 gm QIDACHS PO Last administered on 06/24/16 12:32; Start 06/24/16 at 08:00 Active Scripts Active Oxycodone Hcl 5 Mg Tablet 5-10 Mg PO PRN Q6HRS PRN Polyethylene Glycol 3350 255 Gm Powder 17 Gm PO DAILY Reported Tramadol Hcl 50 Mg Tablet 1 Tab PO BID PRN Paxil (Paroxetine Hcl) 10 Mg Tablet 1 Tab PO DAILY Midodrine Hcl 5 Mg Tablet 5 Mg PO K-Tab ER (Potassium Chloride) 20 Meq Tablet.er 20 Meq PO DAILY Furosemide 80 Mg Tablet 80 Mg PO DAILY Calcium Acetate 667 Mg Tablet 667 Mg PO DAILY Atorvastatin Calcium 80 Mg Tablet 80 Mg PO DAILY Levemir Flextouch (Insulin Detemir) 100 Unit/1 Ml Insuln.pen 22 Units SQ HS Lisinopril 20 Mg Tablet 20 Mg PO DAILY Levothyroxine Sodium 175 Mcg Tablet 175 Mcg PO DAILY Novolin 70-30 100 Unit/Ml Vial (Hum Insulin Nph/Reg Insulin Hm) 100 Unit/1 Ml Vial Prochlorperazine Maleate 5 Mg Tablet 5 Mg PO DAILY Calcium Acetate 667 Mg Tablet 1,334 Mg PO TIDWMEALS Torsemide 20 Mg Tablet 40 Mg PO BID Metolazone 5 Mg Tablet 5 Mg PO DAILY Omeprazole 40 Mg Capsule.dr 1 Cap PO DAILY Timoptic-Xe (Timolol Maleate) 5 Ml Anjelica.gel 1 Drop EACHEYE DAILYWBKFT Latanoprost 2.5 Ml Drops 1 Drop EACHEYE QHS Lantus Solostar (Insulin Glargine,Hum.rec.anlog) 100 Unit/1 Ml Insuln.pen 18 Unit SQ QHS Humalog Mix 50-50 Kwikpen (Insulin Npl/Insulin Lispro) 100 Unit/1 Ml Insuln.pen 100 Unit SQ Tylenol (Acetaminophen) 325 Mg Tablet 325 Mg PO PRN Q6HRS Allergies Allergies: Coded Allergies: Sulfa (Sulfonamide Antibiotics) (Verified Allergy, Intermediate, 03/12/16) amlodipine (Verified Allergy, Intermediate, COUGH, 03/12/16) benazepril (Verified Allergy, Intermediate, COUGH, 03/12/16) morphine (Verified Allergy, Intermediate, HEADACHE, 03/24/16) ROS Review of System GEN: no Fevers + Chills EYES: no new Visual Complaints ENT: no EN Drainage no Hearing deficiets CVS: no Orthopnea no CP RESP: no SOB no VILLANUEVA GI: + Nausea + Vomiting : no Dysuria no Urgency HEME: no easy bruising no Palp Ly Nodes NEURO no Focal Weakness no Sz PSYCH: no Suicidal Ideation no Depression SKIN: no Rashes ENDO: no Polyuria or Polydipsia no Hot/Cold Intolerance MU SK: occ Arthraigia no Myalgia Physical Exam Physical Exam General Appearance: Awake Alert Oriented x 3 In no Distress Eyes: VIsion Unchanged Conjunctiva Normal EN: No EN Drainage Mucous Memb. moist Neck: no JVD no JVP Supple no Thyromegaly CVS: S1 S2 ? Murmur No Gallop No Rub no Edema Resp: no Rales no Rhonchi no Acc. Muscle use GI: BAS +ve NO Bruit Non Tender Non Distended : no CVA tenderness; no Suprapubic Tenderness SKIN: no Rashes Breast Exam deferred Mu.Sk: Adequate ROM no Muscle Atrophy Heme: Unable to palpate Obvious LAD no palp Splenomegaly NEURO: Good Strength and Tone Cranial Nerves II - XII grossly intact Psych: not Depressed no Active hallucination Vital Signs Vital Signs Date Time Temp Pulse Resp B/P Pulse Ox O2 Delivery O2 Flow Rate FiO2 06/24/16 14:14 71 20 109/67 99 Room Air 06/24/16 10:21 97.7 97.7 Assessment & Plan ESRD.: CAPD with 1.5% Dianeal, 2500cc fills, Q3 hrs x 6 exchanges (dry at night ) - start today Low K - replaced Anemia: start Epogen Transfuse as needed. HyopTN: ? Vol depleted - will use 1.5% dianeal for now. Current BP meds held. DEO/ Bone & Mineral: follow phos, PO intake has been limited low Alb - PO intake has been Marginal NV - Doubt Uremic will check with OP PD RN Discussed Plan of Care and prognosis etc. at length with family () Labs Labs Laboratory Tests Test 06/23/16 16:45 06/24/16 03:47 06/24/16 09:21 06/24/16 11:36 White Blood Count 6.0x10^3/uL (4.0-11.0) 5.3x10^3/uL (4.0-11.0) Red Blood Count 3.67x10^6/uL (3.50-5.40) 3.26x10^6/uL (3.50-5.40) Hemoglobin 11.8g/dL (12.0-15.5) 10.6g/dL (12.0-15.5) Hematocrit 36.0% (36.0-47.0) 32.8% (36.0-47.0) Mean Corpuscular Volume 98fL (79-100) 101fL (79-100) Mean Corpuscular Hemoglobin 32pg (25-35) 33pg (25-35) Mean Corpuscular Hemoglobin Concent 33g/dL (31-37) 32g/dL (31-37) Red Cell Distribution Width 17.7% (11.5-14.5) 17.5% (11.5-14.5) Platelet Count 312x10^3/uL (140-400) 250x10^3/uL (140-400) Neutrophils (%) (Auto) 65% (31-73) 51% (31-73) Lymphocytes (%) (Auto) 26% (24-48) 35% (24-48) Monocytes (%) (Auto) 8% (0-9) 12% (0-9) Eosinophils (%) (Auto) 0% (0-3) 1% (0-3) Basophils (%) (Auto) 1% (0-3) 1% (0-3) Neutrophils # (Auto) 3.9x10^3uL (1.8-7.7) 2.7x10^3uL (1.8-7.7) Lymphocytes # (Auto) 1.6x10^3/uL (1.0-4.8) 1.8x10^3/uL (1.0-4.8) Monocytes # (Auto) 0.5x10^3/uL (0.0-1.1) 0.6x10^3/uL (0.0-1.1) Eosinophils # (Auto) 0.0x10^3/uL (0.0-0.7) 0.1x10^3/uL (0.0-0.7) Basophils # (Auto) 0.0x10^3/uL (0.0-0.2) 0.1x10^3/uL (0.0-0.2) Sodium Level 136mmol/L (136-145) 136mmol/L (136-145) Potassium Level 2.9mmol/L (3.5-5.1) 3.8mmol/L (3.5-5.1) Chloride Level 96mmol/L (98-107) 99mmol/L (98-107) Carbon Dioxide Level 28mmol/L (21-32) 28mmol/L (21-32) Anion Gap 12 (6-14) 9 (6-14) Blood Urea Nitrogen 18mg/dL (7-20) 20mg/dL (7-20) Creatinine 5.8mg/dL (0.6-1.0) 5.9mg/dL (0.6-1.0) Estimated GFR (Cockcroft-Gault) 8.5 8.4 Glucose Level 128mg/dL (70-99) 132mg/dL (70-99) Calcium Level 8.6mg/dL (8.5-10.1) 8.2mg/dL (8.5-10.1) Total Bilirubin 0.8mg/dL (0.2-1.0) 0.8mg/dL (0.2-1.0) Direct Bilirubin 0.1mg/dL (0.0-0.2) Aspartate Amino Transf (AST/SGOT) 24U/L (15-37) 26U/L (15-37) Alanine Aminotransferase (ALT/SGPT) 30U/L (14-59) 24U/L (14-59) Alkaline Phosphatase 95U/L (46-116) 93U/L (46-116) Troponin I Quantitative < 0.017ng/mL (0.000-0.055) Total Protein 5.5g/dL (6.4-8.2) 4.7g/dL (6.4-8.2) Albumin 1.9g/dL (3.4-5.0) 1.5g/dL (3.4-5.0) Lipase 238U/L (73-393) BUN/Creatinine Ratio 3 (6-20) Albumin/Globulin Ratio 0.5 (1.0-1.7) Glucose (Fingerstick) 223mg/dL (70-99) 134mg/dL (70-99) Laboratory Tests Test 06/23/16 16:45 06/24/16 03:47 06/24/16 09:21 06/24/16 11:36 White Blood Count 6.0x10^3/uL (4.0-11.0) 5.3x10^3/uL (4.0-11.0) Red Blood Count 3.67x10^6/uL (3.50-5.40) 3.26x10^6/uL (3.50-5.40) Hemoglobin 11.8g/dL (12.0-15.5) 10.6g/dL (12.0-15.5) Hematocrit 36.0% (36.0-47.0) 32.8% (36.0-47.0) Mean Corpuscular Volume 98fL (79-100) 101fL (79-100) Mean Corpuscular Hemoglobin 32pg (25-35) 33pg (25-35) Mean Corpuscular Hemoglobin Concent 33g/dL (31-37) 32g/dL (31-37) Red Cell Distribution Width 17.7% (11.5-14.5) 17.5% (11.5-14.5) Platelet Count 312x10^3/uL (140-400) 250x10^3/uL (140-400) Neutrophils (%) (Auto) 65% (31-73) 51% (31-73) Lymphocytes (%) (Auto) 26% (24-48) 35% (24-48) Monocytes (%) (Auto) 8% (0-9) 12% (0-9) Eosinophils (%) (Auto) 0% (0-3) 1% (0-3) Basophils (%) (Auto) 1% (0-3) 1% (0-3) Neutrophils # (Auto) 3.9x10^3uL (1.8-7.7) 2.7x10^3uL (1.8-7.7) Lymphocytes # (Auto) 1.6x10^3/uL (1.0-4.8) 1.8x10^3/uL (1.0-4.8) Monocytes # (Auto) 0.5x10^3/uL (0.0-1.1) 0.6x10^3/uL (0.0-1.1) Eosinophils # (Auto) 0.0x10^3/uL (0.0-0.7) 0.1x10^3/uL (0.0-0.7) Basophils # (Auto) 0.0x10^3/uL (0.0-0.2) 0.1x10^3/uL (0.0-0.2) Sodium Level 136mmol/L (136-145) 136mmol/L (136-145) Potassium Level 2.9mmol/L (3.5-5.1) 3.8mmol/L (3.5-5.1) Chloride Level 96mmol/L (98-107) 99mmol/L (98-107) Carbon Dioxide Level 28mmol/L (21-32) 28mmol/L (21-32) Anion Gap 12 (6-14) 9 (6-14) Blood Urea Nitrogen 18mg/dL (7-20) 20mg/dL (7-20) Creatinine 5.8mg/dL (0.6-1.0) 5.9mg/dL (0.6-1.0) Estimated GFR (Cockcroft-Gault) 8.5 8.4 Glucose Level 128mg/dL (70-99) 132mg/dL (70-99) Calcium Level 8.6mg/dL (8.5-10.1) 8.2mg/dL (8.5-10.1) Total Bilirubin 0.8mg/dL (0.2-1.0) 0.8mg/dL (0.2-1.0) Direct Bilirubin 0.1mg/dL (0.0-0.2) Aspartate Amino Transf (AST/SGOT) 24U/L (15-37) 26U/L (15-37) Alanine Aminotransferase (ALT/SGPT) 30U/L (14-59) 24U/L (14-59) Alkaline Phosphatase 95U/L (46-116) 93U/L (46-116) Troponin I Quantitative < 0.017ng/mL (0.000-0.055) Total Protein 5.5g/dL (6.4-8.2) 4.7g/dL (6.4-8.2) Albumin 1.9g/dL (3.4-5.0) 1.5g/dL (3.4-5.0) Lipase 238U/L (73-393) BUN/Creatinine Ratio 3 (6-20) Albumin/Globulin Ratio 0.5 (1.0-1.7) Glucose (Fingerstick) 223mg/dL (70-99) 134mg/dL (70-99) Images Images One. Mild free air and mild free fluid is consistent with the peritoneal dialysis. 2. Air within the urinary bladder is presumably secondary to instrumentation. 3. Stable appearance of the abdomen and pelvis. CHLOÉ MIRAMONTES MD Jun 24, 2016 14:30
[2016-06-24] MEDS: ONDANSETRON PF 4 MG/2 ML VIAL. IV PRN (15:36)
[2016-06-24] MEDS: ALBUMIN HUMAN 25% 100 ML IV SCH ×2 (16:11→20:56)
[2016-06-24 19:30] VITALS: BP 110/64
--- NOTE | 2016-06-24 20:33 | ACF ---
Admission Forms Criteria VOMITING Clinical Indications for Admission to Inpatient Care ( Place 'X' for any and all applicable criteria): Admission is indicated for ANY ONE of the following(1)(2)(3): [X]I. Inpatient admission required rather than observation care because of ANY ONE of the following: [ ]i) Hemodynamic instability that is severe or persistent [X]ii) Vomiting that is severe or persistent [ ]iii) Severe electrolyte abnormalities requiring inpatient care [ ]iv) Severe pain requiring acute inpatient management [ ]v) High fever or infection requiring inpatient admission as indicated by ANY ONE of the following(7)(8): [ ]1) Appropriate outpatient or observation care antimicrobial treatment unavailable, not effective, or not feasible [ ]2) Documented bacteremia [ ]3) Temp >104.9 degrees F (40.5 degrees C) (oral) [ ]4) Temp >103.1 degrees F (39.5 C) (oral) or <96.8 degrees F (36 C) (rectal) that does not respond to all emergency treatment measures [ ]vi) Acute renal failure [ ]vii) IV fluid to replace significant ongoing losses (greater than 3 L/m2 per day) [ ]viii) Parenteral nutrition regimen that must be implemented on inpatient basis [ ]ix) Other condition, treatment or monitoring requiring inpatient admission [ ]II. Complete or partial gastrointestinal obstruction [ ]III. Other cause of vomiting requiring hospitalization (eg, poisoning, increased intracranial pressure) [ ]IV. Vomiting due to significant metabolic derangement (eg, severe hypercalcemia, diabetic ketoacidosis) Extended stay beyond goal length of stay may be needed for(1)(4): [ ]a) Severe vomiting [ ]b) Persistent vomiting, vital sign changes, severe electrolyte imbalance , or diagnosed cause of vomiting that requires continued hospitalization (eg, gastrointestinal obstruction , increased intracranial pressure) [ ]c) Surgery to treat identified causes of vomiting (eg, bowel obstruction , intracranial process) [ ]d) Comorbid illness that requires inpatient care (eg, acute heart failure , renal failure) [ ]e) Need for inpatient endoscopy The original [employer] [facility] [employer] content created by [employer] has been revised. The portions of the content which have been revised are identified through the use of italic text or in bold, and [facility] [employer] has neither reviewed nor approved the modified material. All other unmodified content is copyright [facility]. Please see references footnoted in the original [facility] edition 2016 Admission Criteria Met?: Yes MARY RUSHING Jun 24, 2016 20:33
[2016-06-24] MEDS: OXYCODONE IR 5 MG TABLET. PO PRN (20:56)
[2016-06-24] MEDS: ATORVASTATIN CALCIUM 40 MG TABLET. PO SCH (20:56)
[2016-06-24] MEDS: TEMAZEPAM 15 MG CAPSULE PO PRN (20:56)
[2016-06-24] MEDS ORDERED: LATANOPROST 0.005% OPHTH SOLUTION 2.5ML BOTTLE. OU SCH (21:00)
[2016-06-24] MEDS ORDERED: DARBEPOETIN ALFA 60 MCG/0.3 ML DISP.SYRIN. SQ SCH (21:00)
[2016-06-24] MEDS ORDERED: NON FORMULARY ITEM (Insulin Glargine,Hum.rec.anlog (Lantus Solostar) 18 UNIT) SQ SCH (21:00)
[2016-06-24] MEDS: INSULIN DETEMIR 300 UNITS/3 ML INSULN.PEN. SQ SCH (21:07)
[2016-06-24 23:01] VITALS: BP 89/37
[2016-06-25] VITALS (7 sets, daily range): BP systolic 83–155; BP diastolic 37–86
--- NOTE | 2016-06-25 04:12 | CONS ---
DATE OF CONSULTATION: PRIMARY PHYSICIAN: Dr. Oleg Gonzalez. REASON FOR CONSULTATION: Peritoneal dialysis. HISTORY OF PRESENT ILLNESS: The patient is a 76-year-old -[place] female who was previously admitted here with nausea, vomiting and was found to have pancreatitis. She underwent an endoscopic ultrasound evaluation at [facility] and she tells me she was found to have a lot of scar tissue. She thinks she had a biopsy done at that time also. More recently she was seen by Dr. Randhawa last week and was noted to be hypotensive. Her blood pressure medications were changed and she was placed on midodrine. She is followed by Dr. Rodriguez for her GI issues. She developed significant nausea, vomiting. At presentation here, her lipase was 238. She was noted to have low potassium of 2.9 and a low albumin at 1.9. In this setting, she was admitted to the hospital by Dr. Gonzalez. We were asked for peritoneal dialysis orders. The patient usually uses the cycler at home and these facilities are not available here, hence her PD was held overnight until fluid status could be reassessed especially given her history of hypotension. Her blood pressures at times have been somewhat elevated in the 170s; however, had dropped down to 102. Her blood pressure medicines will be held for the time being. A suitable CAPD regimen will be ascertained and started for the patient while she is in the hospital. For rest of details, see electronic records. CHLOÉ MIRAMONTSE MD DR: CATHRYN/rahul JOB#: [id number] / [id number]
[2016-06-25] MEDS: LEVOTHYROXINE 175 MCG TABLET PO SCH (05:32)
--- NOTE | 2016-06-25 07:27 | PDOC ---
Provider Note Provider Note same, vss- states dr floyd is arranging some test for [facility]- will see what he suggests, can dc when arranged JOSE LUIS TEIXEIRA MD Jun 25, 2016 07:27
[2016-06-25] MEDS: INSULIN ASPART 300 UNITS/3 ML INSULN.PEN SQ SCH ×3 (08:00→17:58)
[2016-06-25 08:36] LABS: ALBUMIN 2.3 g/dL (3.4-5.0); CALCIUM 8.5 mg/dL (8.5-10.1); CREATININE 6.2 mg/dL (0.6-1.0); GFR 7.9; PHOSPHORUS 4.5 mg/dL (2.6-4.7); POTASSIUM 3.1 mmol/L (3.5-5.1)
--- NOTE | 2016-06-25 08:38 | PDOC ---
Dialysis Progress Note Dialysis Note Dialysis Note Seen on Peritoneal dialysis, tolerating treatment Okay General Appearance: Awake: Alert Oriented x 3 Neck: No JVD or JVP Chest: CTA Mika Heart: S1 S2 Abdomen - Soft NTND Extremities - No Edema ESRD : PD as ordere for now Low BP - IVF as ordered, cehck ECHO. no h/o recent Prednisone use so am cortisol not ordered; BP meds on Hold. ? Vol depletion - IVF + Alb as ordered Vitals Vital Signs Vital Signs Date Time Temp Pulse Resp B/P Pulse Ox O2 Delivery O2 Flow Rate FiO2 06/25/16 07:00 97.9 62 16 83/51 99 Room Air 97.9 Labs Last Labs Laboratory Tests Test 06/23/16 16:45 06/24/16 03:47 06/24/16 09:21 06/24/16 11:36 White Blood Count 6.0x10^3/uL (4.0-11.0) 5.3x10^3/uL (4.0-11.0) Red Blood Count 3.67x10^6/uL (3.50-5.40) 3.26x10^6/uL (3.50-5.40) Hemoglobin 11.8g/dL (12.0-15.5) 10.6g/dL (12.0-15.5) Hematocrit 36.0% (36.0-47.0) 32.8% (36.0-47.0) Mean Corpuscular Volume 98fL (79-100) 101fL (79-100) Mean Corpuscular Hemoglobin 32pg (25-35) 33pg (25-35) Mean Corpuscular Hemoglobin Concent 33g/dL (31-37) 32g/dL (31-37) Red Cell Distribution Width 17.7% (11.5-14.5) 17.5% (11.5-14.5) Platelet Count 312x10^3/uL (140-400) 250x10^3/uL (140-400) Neutrophils (%) (Auto) 65% (31-73) 51% (31-73) Lymphocytes (%) (Auto) 26% (24-48) 35% (24-48) Monocytes (%) (Auto) 8% (0-9) 12% (0-9) Eosinophils (%) (Auto) 0% (0-3) 1% (0-3) Basophils (%) (Auto) 1% (0-3) 1% (0-3) Neutrophils # (Auto) 3.9x10^3uL (1.8-7.7) 2.7x10^3uL (1.8-7.7) Lymphocytes # (Auto) 1.6x10^3/uL (1.0-4.8) 1.8x10^3/uL (1.0-4.8) Monocytes # (Auto) 0.5x10^3/uL (0.0-1.1) 0.6x10^3/uL (0.0-1.1) Eosinophils # (Auto) 0.0x10^3/uL (0.0-0.7) 0.1x10^3/uL (0.0-0.7) Basophils # (Auto) 0.0x10^3/uL (0.0-0.2) 0.1x10^3/uL (0.0-0.2) Sodium Level 136mmol/L (136-145) 136mmol/L (136-145) Potassium Level 2.9mmol/L (3.5-5.1) 3.8mmol/L (3.5-5.1) Chloride Level 96mmol/L (98-107) 99mmol/L (98-107) Carbon Dioxide Level 28mmol/L (21-32) 28mmol/L (21-32) Anion Gap 12 (6-14) 9 (6-14) Blood Urea Nitrogen 18mg/dL (7-20) 20mg/dL (7-20) Creatinine 5.8mg/dL (0.6-1.0) 5.9mg/dL (0.6-1.0) Estimated GFR (Cockcroft-Gault) 8.5 8.4 Glucose Level 128mg/dL (70-99) 132mg/dL (70-99) Calcium Level 8.6mg/dL (8.5-10.1) 8.2mg/dL (8.5-10.1) Total Bilirubin 0.8mg/dL (0.2-1.0) 0.8mg/dL (0.2-1.0) Direct Bilirubin 0.1mg/dL (0.0-0.2) Aspartate Amino Transf (AST/SGOT) 24U/L (15-37) 26U/L (15-37) Alanine Aminotransferase (ALT/SGPT) 30U/L (14-59) 24U/L (14-59) Alkaline Phosphatase 95U/L (46-116) 93U/L (46-116) Troponin I Quantitative < 0.017ng/mL (0.000-0.055) Total Protein 5.5g/dL (6.4-8.2) 4.7g/dL (6.4-8.2) Albumin 1.9g/dL (3.4-5.0) 1.5g/dL (3.4-5.0) Lipase 238U/L (73-393) BUN/Creatinine Ratio 3 (6-20) Albumin/Globulin Ratio 0.5 (1.0-1.7) Glucose (Fingerstick) 223mg/dL (70-99) 134mg/dL (70-99) Test 06/24/16 16:29 06/24/16 20:58 06/25/16 05:27 06/25/16 05:43 Glucose (Fingerstick) 185mg/dL (70-99) 211mg/dL (70-99) 26mg/dL (70-99) 164mg/dL (70-99) Test 06/25/16 07:34 06/25/16 07:55 Glucose (Fingerstick) 161mg/dL (70-99) Hemoglobin 11.3g/dL (12.0-15.5) Laboratory Tests Test 06/24/16 09:21 06/24/16 11:36 06/24/16 16:29 06/24/16 20:58 Glucose (Fingerstick) 223mg/dL (70-99) 134mg/dL (70-99) 185mg/dL (70-99) 211mg/dL (70-99) Test 06/25/16 05:27 06/25/16 05:43 06/25/16 07:34 06/25/16 07:55 Glucose (Fingerstick) 26mg/dL (70-99) 164mg/dL (70-99) 161mg/dL (70-99) Hemoglobin 11.3g/dL (12.0-15.5) Assessment Assessment Problems Medical Problems: (1) Hypovolemia Status: Acute (2) Nausea & vomiting Status: Acute Problems: Plan Plan of Care Problems Medical Problems: (1) Hypovolemia Status: Acute (2) Nausea & vomiting Status: Acute CHLOÉ MIRAMONTES MD Jun 25, 2016 08:38
[2016-06-25] MEDS: PROCHLORPERAZINE 5 MG TABLET. PO SCH (08:39)
[2016-06-25] MEDS: POTASSIUM CHLORIDE 20 MEQ TABLET.ER. PO SCH (08:39)
[2016-06-25] MEDS: SUCRALFATE 1 GM TABLET. PO SCH ×4 (08:39→20:11)
[2016-06-25] MEDS: PAROXETINE 10 MG TABLET. PO SCH (08:39)
[2016-06-25] MEDS: LATANOPROST 0.005% OPHTH SOLUTION 2.5ML BOTTLE. OU SCH (08:40)
[2016-06-25] MEDS: ALBUMIN HUMAN 25% 100 ML IV SCH ×3 (08:40→20:10)
[2016-06-25] MEDS: CALCIUM ACETATE 667 MG CAPSULE PO SCH ×3 (08:40→17:54)
[2016-06-25] MEDS: PANTOPRAZOLE 40 MG TABLET. PO SCH (08:40)
[2016-06-25] MEDS: POLYETHYLENE GLYCOL 3350 17 GM PACKET. PO SCH (08:41)
[2016-06-25] MEDS ORDERED: IV NORMAL SALINE 1000ML BAG 1,000 ML IV SCH (08:45)
--- NOTE | 2016-06-25 11:42 | PDOC ---
Subjective: Subjective: Out of room for echo. Objective: Objective: Per RN - eating w/o vomiting. Vital Signs: Vital Signs Date Time Temp Pulse Resp B/P Pulse Ox O2 Delivery O2 Flow Rate FiO2 06/25/16 11:00 97.9 66 18 120/50 100 Room Air 97.9 Labs: Laboratory Tests Test 06/24/16 16:29 06/24/16 20:58 06/25/16 05:27 06/25/16 05:43 Glucose (Fingerstick) 185mg/dL (70-99) 211mg/dL (70-99) 26mg/dL (70-99) 164mg/dL (70-99) Test 06/25/16 07:34 Glucose (Fingerstick) 161mg/dL (70-99) PE: no exam A/P: N/v -chronic w/ extensive workup including CTs, MRCP, EUS, EGD, GET -on PPI, s/p cholecystectomy -says normal colonoscopy 2-3 years ago -- Out for echo. Cortisol in process. ?gastroparesis - DM, ESRD likely contributing. Dr. Rodriguez has recommended second opinion w/ [facility]. LEENA DAVIS Jun 25, 2016 11:42
--- NOTE | 2016-06-25 13:18 | CARD ---
APPROVED REPORT EXAM: Two-dimensional and M-mode echocardiogram with Doppler and color Doppler. Other Information Quality : Average Rhythm : NSR INDICATION hypotension 2D DIMENSIONS Left Atrium(2D)3.1 (1.6-4.0cm)IVSd0.9 (0.7-1.1cm) Aortic Root(2D)2.8 (2.0-3.7cm)LVDd4.3 (3.9-5.9cm) LVOT Diameter1.9 (1.8-2.4cm)PWd1.0 (0.7-1.1cm) LVDs2.6 (2.5-4.0cm)FS (%) 34.3 % SV56.7 mlLVEF(%)64.8 (>50%) Aortic Valve AoV Peak Madi.133.7cm/sAoV VTI33.0cm AO Peak GR.7.1mmHgLVOT Peak Madi.103.6cm/s AO Mean GR.4mmHgAVA (VMAX)2.20cm2 YAMILA (VTI)2.30cm2 Mitral Valve MV E Lilpaidf41.4cm/sMV E Peak Gr.7mmHg MV DECEL UNGT713kuIP A Ezexwluj995.9cm/s MV E Mean Gr.2mmHgMV FFQ22za E/A Ratio0.7MV A Cddzeizk532wn MVA (PHT)3.56cm2 Tricuspid Valve TR P. Umllbtul393wp/sRAP IWPHSHKD8bgZc TR Peak Gr.65zdTlXDSF51gzPr Pulmonary Vein S1 Noopooou77.5cm/sD2 Rwzabbgr34.1cm/s LEFT VENTRICLE The left ventricle is normal size. There is normal left ventricular wall thickness. Left ventricle sy stolic function is normal. The Ejection Fraction is 60-65%. There is normal LV segmental wall motion. Tissue Doppler imaging reveals mild left ventricular diastolic dysfunction. RIGHT VENTRICLE The right ventricle is normal size. The right ventricular systolic function is normal. ATRIA The left atrium size is normal. The right atrium size is normal. The interatrial septum is intact wit h no evidence for an atrial septal defect or patent foramen ovale as noted on 2-D or Doppler imaging. AORTIC VALVE The aortic valve is not well visualized. Doppler and Color Flow revealed no significant aortic regurg itation. There is no significant aortic valvular stenosis. MITRAL VALVE Mitral annular calcification is mild to moderate. The mitral valve leaflets are thickened and calcifi ed. There is no mitral valve stenosis. Doppler and Color Flow revealed mild mitral regurgitation. TRICUSPID VALVE The tricuspid valve is not well visualized. Doppler and Color Flow revealed mild tricuspid regurgitat ion. The PA pressure was estimated at 34 mmHg. There is no tricuspid valve stenosis. PULMONIC VALVE The pulmonic valve is not well visualized. Doppler and Color Flow revealed no pulmonic valvular regur gitation. There is no pulmonic valvular stenosis. GREAT VESSELS The aortic root is normal in size. Normal pulmonary venous flow (Doppler). The IVC is normal in size and collapses >50% with inspiration. PERICARDIAL EFFUSION There is no evidence of significant pericardial effusion. Critical Notification Critical Value: No <Conclusion> Left ventricle systolic function is normal. The Ejection Fraction is 60-65%. There is normal LV segmental wall motion. Doppler and Color Flow revealed mild mitral regurgitation. Doppler and Color Flow revealed mild tricuspid regurgitation. The PA pressure was estimated at 34 mmH g.
[2016-06-25] MEDS: TIMOLOL 0.25% OPHTH SOLUTION 5ML BOTTLE. OU SCH (20:10)
[2016-06-25] MEDS: ATORVASTATIN CALCIUM 40 MG TABLET. PO SCH (20:11)
[2016-06-25] MEDS: OXYCODONE IR 5 MG TABLET. PO PRN (20:25)
[2016-06-25] MEDS: INSULIN DETEMIR 300 UNITS/3 ML INSULN.PEN. SQ SCH (20:35)
[2016-06-26] VITALS (7 sets, daily range): BP systolic 102–121; BP diastolic 58–80
[2016-06-26] MEDS: LEVOTHYROXINE 175 MCG TABLET PO SCH (05:57)
[2016-06-26] MEDS: SUCRALFATE 1 GM TABLET. PO SCH (07:30)
[2016-06-26] MEDS: INSULIN ASPART 300 UNITS/3 ML INSULN.PEN SQ SCH ×3 (08:00→17:43)
--- NOTE | 2016-06-26 08:07 | DISCH ---
DISCHARGE INSTRUCTIONS Condition on Discharge Condition on Discharge: Stable Activity After Discharge Activity Instructions for Disc: No restrictions Diet after Discharge Diet after Discharge: Renal Dialysis Follow-Up Follow up with: JOSE LUIS Martini MD Jun 26, 2016 08:07
--- NOTE | 2016-06-26 08:11 | PDOC ---
Provider Note Provider Note [id number] JOSE LUIS TEIXEIRA MD Jun 26, 2016 08:11
[2016-06-26] MEDS: PANTOPRAZOLE 40 MG TABLET. PO SCH (08:49)
[2016-06-26] MEDS: CALCIUM ACETATE 667 MG CAPSULE PO SCH ×3 (08:49→17:40)
[2016-06-26] MEDS: PROCHLORPERAZINE 5 MG TABLET. PO SCH (08:50)
[2016-06-26] MEDS: POTASSIUM CHLORIDE 20 MEQ TABLET.ER. PO SCH (08:50)
[2016-06-26] MEDS: LATANOPROST 0.005% OPHTH SOLUTION 2.5ML BOTTLE. OU SCH (08:50)
[2016-06-26] MEDS: ALBUMIN HUMAN 25% 100 ML IV SCH (08:50)
[2016-06-26] MEDS: PAROXETINE 10 MG TABLET. PO SCH (08:50)
[2016-06-26] MEDS: POLYETHYLENE GLYCOL 3350 17 GM PACKET. PO SCH (08:51)
--- NOTE | 2016-06-26 11:22 | PDOC ---
Dialysis Progress Note Dialysis Note Dialysis Note Seen on Peritoneal dialysis, tolerating treatment Okay General Appearance: Awake: Alert Oriented x 3 Neck: No JVD or JVP Chest: CTA Mika Heart: S1 S2 Abdomen - Soft NTND Extremities - No Edema ESRD : PD as ordered for now Low BP - IVF as ordered, cehck ECHO. no h/o recent Prednisone use so am cortisol not ordered; BP meds on Hold. ? Vol depletion - IVF + Alb as ordered Low K - recheck today Vitals Vital Signs Vital Signs Date Time Temp Pulse Resp B/P Pulse Ox O2 Delivery O2 Flow Rate FiO2 06/26/16 11:14 98.1 75 17 108/58 98 Room Air 98.1 Labs Last Labs Laboratory Tests Test 06/24/16 11:36 06/24/16 16:29 06/24/16 20:58 06/25/16 05:27 Glucose (Fingerstick) 134mg/dL (70-99) 185mg/dL (70-99) 211mg/dL (70-99) 26mg/dL (70-99) Test 06/25/16 05:43 06/25/16 07:34 06/25/16 07:35 06/25/16 07:55 Glucose (Fingerstick) 164mg/dL (70-99) 161mg/dL (70-99) Sodium Level 135mmol/L (136-145) Potassium Level 3.1mmol/L (3.5-5.1) Chloride Level 97mmol/L (98-107) Carbon Dioxide Level 25mmol/L (21-32) Anion Gap 13 (6-14) Blood Urea Nitrogen 25mg/dL (7-20) Creatinine 6.2mg/dL (0.6-1.0) Estimated GFR (Cockcroft-Gault) 7.9 Glucose Level 157mg/dL (70-99) Calcium Level 8.5mg/dL (8.5-10.1) Phosphorus Level 4.5mg/dL (2.6-4.7) Albumin 2.3g/dL (3.4-5.0) Hemoglobin 11.3g/dL (12.0-15.5) Magnesium Level 1.5mg/dL (1.8-2.4) Cortisol AM Sample 15.1ug/dL (6.2-19.4) Test 06/25/16 12:21 2/23/17 17:01 06/25/16 20:28 06/26/16 07:29 Glucose (Fingerstick) 142mg/dL (70-99) 164mg/dL (70-99) 156mg/dL (70-99) 115mg/dL (70-99) Laboratory Tests Test 06/25/16 12:21 06/25/16 17:01 06/25/16 20:28 06/26/16 07:29 Glucose (Fingerstick) 142mg/dL (70-99) 164mg/dL (70-99) 156mg/dL (70-99) 115mg/dL (70-99) Assessment Assessment Problems Medical Problems: (1) Hypovolemia Status: Acute (2) Nausea & vomiting Status: Acute Problems: Plan Plan of Care Problems Medical Problems: (1) Hypovolemia Status: Acute (2) Nausea & vomiting Status: Acute CHLOÉ MIRAMONTES MD Jun 26, 2016 11:22
[2016-06-26 12:11] LABS: ALBUMIN 3.1 g/dL (3.4-5.0); CALCIUM 8.4 mg/dL (8.5-10.1); CREATININE 5.4 mg/dL (0.6-1.0); GFR 9.3; PHOSPHORUS 3.4 mg/dL (2.6-4.7); POTASSIUM 3.6 mmol/L (3.5-5.1)
[2016-06-26] MEDS ORDERED: IV NORMAL SALINE 1000ML BAG 1,000 ML IV SCH (12:45)
[2016-06-26] MEDS ORDERED: [UNRECOGNIZED DRUG - OTHER] IV SCH (13:00)
[2016-06-26] MEDS ORDERED: MAGNESIUM SULFATE IV SCH (13:00)
[2016-06-26] MEDS ORDERED: POTASSIUM CHLORIDE IV SCH (13:00)
--- NOTE | 2016-06-26 13:30 | PDOC ---
Subjective: Subjective: Not seen. D/w Dr. Gonzalez - n/v better. Objective: Vital Signs: Vital Signs Date Time Temp Pulse Resp B/P Pulse Ox O2 Delivery O2 Flow Rate FiO2 06/26/16 11:14 98.1 75 17 108/58 98 Room Air 98.1 Labs: Laboratory Tests Test 06/25/16 17:01 06/25/16 20:28 06/26/16 07:29 06/26/16 11:00 Glucose (Fingerstick) 164mg/dL 156mg/dL 115mg/dL Sodium Level 135mmol/L Potassium Level 3.6mmol/L Chloride Level 96mmol/L Carbon Dioxide Level 30mmol/L Anion Gap 9 Blood Urea Nitrogen 21mg/dL Creatinine 5.4mg/dL Estimated GFR (Cockcroft-Gault) 9.3 Glucose Level 158mg/dL Calcium Level 8.4mg/dL Phosphorus Level 3.4mg/dL Magnesium Level 1.2mg/dL Albumin 3.1g/dL Test 06/26/16 11:47 Glucose (Fingerstick) 166mg/dL PE: no exam A/P: N/v -chronic w/ extensive workup including CTs, MRCP, EUS, EGD, GET, normal cortisol -on PPI, s/p cholecystectomy -says normal colonoscopy 2-3 years ago -chronic health issues (DM, ESRD) -- DC planned today. Records faxed for second opinion w/ [facility]. LEENA DAVIS Jun 26, 2016 13:30
[2016-06-26] MEDS ORDERED: ONDANSETRON ODT 4 MG TAB.RAPDIS PO PRN (18:30)
--- NOTE | 2016-06-26 20:10 | DS ---
DATE OF DISCHARGE: 06/26/2016 HOSPITAL SUMMARY: A 76-year-old black female with insulin-dependent diabetes and on home peritoneal dialysis, came in with persistent nausea and vomiting. Her chemistry profile and CBC were unremarkable, a.m. cortisol was normal and albumin was mildly low at 2.3. Abdominal and pelvic CT was unremarkable and gastric emptying time had been done about a month prior to admission, was normal as well. Carafate was added and Dr. Rodriguez saw her in consultation and was considering the need for the patient to go to to see GI to consider further studies regarding possible gastroparesis as a source of his ongoing problem despite the normal outpatient study. She seemed to improve with Carafate and the nausea and vomiting is better, so she will discuss the need to go to with Dr. Rodriguez prior to her dismissal later today. Echocardiogram was ordered by Dr. Josh Lau and that showed a good ejection fraction of 60% and no abnormalities noted of note. FINAL DIAGNOSIS: Persistent nausea and vomiting, etiology undetermined. OPERATIONS, PROCEDURES, COMPLICATIONS: None. CONSULTATIONS: Dr. Rodriguez, Dr. Josh Lau. DISPOSITION: Home meds remain the same with the addition of Carafate 1 g before meals and bedtime along with the omeprazole she is already taking. Should she fail to improve, she will see Dr. Rodriguez to consider consultation with [facility] for a second opinion. Rest of meds remain the same. Office followup with Dr. Gonzalez in 1 week. JOSE LUIS GONZALEZ MD DR: LATOYA/rahul JOB#: [id number] / [id number]
[2016-06-26] MEDS: ATORVASTATIN CALCIUM 40 MG TABLET. PO SCH (20:45)
[2016-06-26] MEDS: SUCRALFATE 1 GM/10 ML ORAL.SUSP. PEG SCH (20:45)
[2016-06-26] MEDS: TIMOLOL 0.25% OPHTH SOLUTION 5ML BOTTLE. OU SCH (20:45)
[2016-06-26] MEDS: OXYCODONE IR 5 MG TABLET. PO PRN (20:54)
[2016-06-26] MEDS: INSULIN DETEMIR 300 UNITS/3 ML INSULN.PEN. SQ SCH (21:03)
[2016-06-27 03:04] VITALS: BP 92/50
[2016-06-27 05:19] LABS: ALBUMIN 2.4 g/dL (3.4-5.0); CALCIUM 8.2 mg/dL (8.5-10.1); CREATININE 4.9 mg/dL (0.6-1.0); GFR 10.4; PHOSPHORUS 2.8 mg/dL (2.6-4.7); POTASSIUM 3.4 mmol/L (3.5-5.1)
[2016-06-27] MEDS: LEVOTHYROXINE 175 MCG TABLET PO SCH (06:10)
[2016-06-27 07:00] VITALS: BP 91/52
[2016-06-27] MEDS: INSULIN ASPART 300 UNITS/3 ML INSULN.PEN SQ SCH ×2 (07:56→12:00)
[2016-06-27] MEDS: SUCRALFATE 1 GM/10 ML ORAL.SUSP. PEG SCH ×3 (08:21→16:30)
[2016-06-27] MEDS: PAROXETINE 10 MG TABLET. PO SCH (08:21)
[2016-06-27] MEDS: CALCIUM ACETATE 667 MG CAPSULE PO SCH ×2 (08:21→12:17)
[2016-06-27] MEDS: PANTOPRAZOLE 40 MG TABLET. PO SCH (08:21)
[2016-06-27] MEDS: POTASSIUM CHLORIDE 20 MEQ TABLET.ER. PO SCH (08:22)
[2016-06-27] MEDS: LATANOPROST 0.005% OPHTH SOLUTION 2.5ML BOTTLE. OU SCH (08:22)
[2016-06-27] MEDS: PROCHLORPERAZINE 5 MG TABLET. PO SCH (08:22)
[2016-06-27] MEDS: POLYETHYLENE GLYCOL 3350 17 GM PACKET. PO SCH (08:22)
[2016-06-27 11:00] VITALS: BP 99/53
[2016-06-27 15:00] VITALS: BP 96/47
--- NOTE | 2016-06-27 16:43 | PDOC ---
Provider Note Provider Note RENAL F/U : JIMBO S : Doing better. No c/o of CP, SOA, NVD. O : VSS Afebrile. Alert Neck : Supple. Lungs : Non labored. CVS : RRR ABD : Portly, benign appearing. No distention. Ext. : No major edema. Neuro : No specific focal issues. Labs reviewed. A/P: ESRD : On PD. NAUSEA and VOMITING : Resolved. HTN : BP controlled. Ext d/w pt Answered queries. OK to DC home and resume CAPD ZINA CHOI MD Jun 27, 2016 16:43
== END 2016-06-27 17:12 | disposition home or self-care (01) | DRG 73 ==
LOC: ER 16:14 → 6 SOUTH 18:56
PROVIDERS: ADMIT Family Medicine; ATTEND Family Medicine
PROC: 3E1M39Z Irrigation of Peritoneal Cavity using Dialysate, Percutaneous Approach (ICD-10-PCS; principal; 2016-06-26)
DX: E11.43 Type 2 diabetes mellitus with diabetic autonomic (poly)neuropathy (principal); N18.6 End stage renal disease; I12.0 Hypertensive chronic kidney disease with stage 5 chronic kidney disease or end stage renal disease; K86.1 Other chronic pancreatitis; R11.2 Nausea with vomiting, unspecified; E87.6 Hypokalemia; E11.22 Type 2 diabetes mellitus with diabetic chronic kidney disease; E78.5 Hyperlipidemia, unspecified; E86.1 Hypovolemia; E89.0 Postprocedural hypothyroidism; H40.9 Unspecified glaucoma; K31.84 Gastroparesis; K21.9 Gastro-esophageal reflux disease without esophagitis; Z96.659 Presence of unspecified artificial knee joint; D64.9 Anemia, unspecified; M19.90 Unspecified osteoarthritis, unspecified site; Z88.5 Allergy status to narcotic agent; Z99.2 Dependence on renal dialysis; Z90.49 Acquired absence of other specified parts of digestive tract; Z85.51 Personal history of malignant neoplasm of bladder; Z88.2 Allergy status to sulfonamides; Z88.8 Allergy status to other drugs, medicaments and biological substances
CPT/HCPCS: 36415; 74176; 80048; 80053; 80069; 80076; 82533; 82947; 83690; 83735; 84484; 85018; 85027; 93005; 93306; 96360; J0881; J1815; J2405; J3475; J7030; J7040; J7042; P9046; Q0162; Q0164; 99285-25

== ENCOUNTER → 2016-08-17 | Outpatient (CLI) | payer MEDICARE ==
[~2016-08-17] MED LIST changes: +MIDO5TAB PO; +PARO10TA24 PO; +TRAM50TA PO
== END | disposition home or self-care (01) ==
LOC: LAB 07:09
PROVIDERS: ATTEND Internal Medicine Nephrology
DX: I95.89 Other hypotension (principal)
CPT/HCPCS: 36415; 82533

== ENCOUNTER → 2016-10-30 | Day surgery (SDC) | payer MEDICARE ==
[~2016-10-30] MED LIST changes: +CALC-31 PO; -CALC-67 PO; +DEXTROSE 50% 25 GM / 50ML DISP.SYRIN. IV ONE; +DOCU-109 PO; -DOCU-27 PO; +IV NORMAL SALINE 1000ML BAG 1,000 ML IV SCH; +IV RINGERS,LACTATED 1000ML 1,000 ML IV SCH; +LIDOCAINE 1% 1 ML SYRINGE. ID PRN; +LIDOCAINE 2% PF Vial for OR 5 ML VIAL. ONE; +ONDANSETRON PF 4 MG/2 ML VIAL. IV PRN; -PARO10TA24 PO; +PARO10TA57 PO; +POTA20PA21 PO; -POTA20PA8 PO; +PROCHLORPERAZINE 10 MG/2 ML VIAL. IV PRN; +PROPOFOL 0 ML IV ONE; +PROPOFOL 20 ML IV ONE; +fentaNYL PF VIAL 100 MCG/2 ML VIAL IV PRN
[2016-10-30 09:00] VITALS: BP 155/90
--- NOTE | 2016-10-30 09:43 | PDOC2 ---
GI CONSULT Reason For Consult: Colonoscopy HPI: HPI: 76 y/o AA female presents for screening colonoscopy. Recalls previously normal colonoscopy in the past. PMH: PMH: chronic pancreatitis w/ elevated CA19-9, DM, GERD, constipation, HTN, hypothyroidism, ESRD on PD, HLD, bladder cancer, cholecystectomy, hysterectomy, knee surgery, thyroidectomy, PD catheter, bladder tumor removal, previous colonoscopy, EGD, GES, EUS FH: Family History: No pertinent hx Social History: Smoke: No ALCOHOL: none Drugs: None ROS: GEN: Denies fevers, chills, sweats HEENT: Denies blurred vision, sore throat CV: Denies chest pain RESP: Denies shortness of air, cough GI: +chronic n/v : Denies hematuria, dysuria ENDO: +weight loss NEURO: Denies confusion, dizziness MSK: Denies weakness, joint pain/swelling SKIN: Denies jaundice, pruritus Vitals: Vitals: Vital Signs Date Time Temp Pulse Resp B/P (MAP) Pulse Ox O2 Delivery O2 Flow Rate FiO2 10/30/16 09:00 70 18 155/90 97 Room Air 10/30/16 08:45 97.3 97.3 Labs: Labs: Laboratory Tests Test 10/30/16 07:48 10/30/16 08:05 Glucose (Fingerstick) 41 mg/dL (70-99) 107 mg/dL (70-99) Allergies: Coded Allergies: Sulfa (Sulfonamide Antibiotics) (Verified Allergy, Intermediate, 10/30/16) amlodipine (Verified Allergy, Intermediate, COUGH, 10/30/16) benazepril (Verified Allergy, Intermediate, COUGH, 10/30/16) morphine (Verified Allergy, Intermediate, HEADACHE, 10/30/16) Medications: Current Medications Medications (Trade) Dose Ordered Sig/María Route PRN Reason Start Time Stop Time Status Last Admin Dose Admin Sodium Chloride 1,000 ml @ 125 mls/hr Q8H IV 10/30/16 07:44 10/30/16 19:43 10/30/16 07:51 Please see EMR. PE: GEN: NAD HEENT: Atraumatic, PERRL LUNGS: CTAB HEART: RRR ABD: NABS, S/ND/NT, +PD catheter EXTREMITY: No edema SKIN: No rashes, no jaundice NEURO/PSYCH: A & O 3 A/P: A/P: CRC screening -- Proceed w/ colonoscopy for screening. Further recommendations pending results. LEENA DAVIS Oct 30, 2016 09:43
== END | disposition home or self-care (01) ==
LOC: ENDOS 06:55
PROVIDERS: ATTEND Internal Medicine Gastroenterology
DX: K64.0 First degree hemorrhoids (principal); K55.21 Angiodysplasia of colon with hemorrhage; K57.30 Diverticulosis of large intestine without perforation or abscess without bleeding; D50.0 Iron deficiency anemia secondary to blood loss (chronic); E11.39 Type 2 diabetes mellitus with other diabetic ophthalmic complication; H40.9 Unspecified glaucoma; E11.40 Type 2 diabetes mellitus with diabetic neuropathy, unspecified; E78.00 Pure hypercholesterolemia, unspecified; E66.9 Obesity, unspecified; Z68.45 Body mass index [BMI] 70 or greater, adult; K21.9 Gastro-esophageal reflux disease without esophagitis; I12.9 Hypertensive chronic kidney disease with stage 1 through stage 4 chronic kidney disease, or unspecified chronic kidney disease; E11.22 Type 2 diabetes mellitus with diabetic chronic kidney disease; N18.9 Chronic kidney disease, unspecified; M19.90 Unspecified osteoarthritis, unspecified site; E03.9 Hypothyroidism, unspecified; F41.9 Anxiety disorder, unspecified; D64.9 Anemia, unspecified; Z90.49 Acquired absence of other specified parts of digestive tract; Z90.710 Acquired absence of both cervix and uterus; Z96.653 Presence of artificial knee joint, bilateral; Z86.39 Personal history of other endocrine, nutritional and metabolic disease; Z88.6 Allergy status to analgesic agent; Z88.2 Allergy status to sulfonamides; Z88.8 Allergy status to other drugs, medicaments and biological substances
CPT/HCPCS: 45378; 82962; J2704; J7042

== ENCOUNTER 2017-06-23 08:55 | Day surgery (SDC) | payer MEDICARE ==
[2017-06-23] MEDS: IV RINGERS,LACTATED 1000ML 1,000 ML IV ×2 (07:00)
[~2017-06-23 08:55] MED LIST changes: -ACET325T9 PO; -ALLO300T PO; -AMLO10TA4 PO; -ASCO500T PO; -ATOR10TA60 PO; -ATORVASTATIN CA80 MG PO; -CALC-31 PO; -CALC667T PO; -CLON0.1T PO; +DEXAMETHASONE SOD PHOS 20 MG/5 ML VIAL.; -DEXTROSE 50% 25 GM / 50ML DISP.SYRIN. IV ONE; -DOCU-109 PO; -ESOM40SU PO; -FERR325T58 PO; -FURO80TA3 PO; -FURO80TA72 PO; -GLUC1CAP48 PO; +GLYCOPYRROLATE 1 MG/5 ML VIAL.; -HUM100VI5; -HYDR-2869 PO; -HYDR-923 PO; -HYDR-965 PO; -HYDR-971 PO; -INSU100I13 SQ; -INSU100I27 SQ; -INSU100I9 SQ; -INSU100V13 SQ; -IV NORMAL SALINE 1000ML BAG 1,000 ML IV SCH; -IV RINGERS,LACTATED 1000ML 1,000 ML IV SCH; -LATA2.5D3 EACHEYE; -LEVO125T5 PO; -LEVO175T5 PO; -LIDOCAINE 1% 1 ML SYRINGE. ID PRN; +LIDOCAINE 1% PF 2 ML VIAL. ID; +LIDOCAINE 2% PF Vial for OR 5 ML VIAL.; -LIDOCAINE 2% PF Vial for OR 5 ML VIAL. ONE; -LISI-334 PO; -LISI20TA PO; -LISI40TA PO; -METO5TAB4 PO; +MIDAZOLAM HCL/PF 2 MG/2 ML VIAL.; -MIDO5TAB PO; +MORPHINE SULFATE 2 MG/ML DISP.SYRIN. IV; +NEOSTIGMINE METHYLSULFATE 5 MG/5 ML SYRINGE.; -OMEP40CA5 PO; +ONDANSETRON PF 4 MG/2 ML VIAL.; +ONDANSETRON PF 4 MG/2 ML VIAL. IV; -ONDANSETRON PF 4 MG/2 ML VIAL. IV PRN; -OXYC5TAB PO; -PARO10TA57 PO; -POLY255P PO; -POTA20PA21 PO; -POTA20TA84 PO; -PROC5TAB PO; +PROCHLORPERAZINE 10 MG/2 ML VIAL. IV; -PROCHLORPERAZINE 10 MG/2 ML VIAL. IV PRN; -PROPOFOL 0 ML IV ONE; +PROPOFOL 20 ML IV; -PROPOFOL 20 ML IV ONE; +ROCURONIUM 50 MG/5 ML VIAL.; -SENN1TAB29 PO; -SENN8.6C2 PO; +SEVOFLURANE 61 TO 120 MINUTES. IH; -TIMO5DRO26 EACHEYE; -TIMO5DRO5 EACHEYE; -TIMO5SOL4 EACHEYE; -TORS20TA2 PO; -TRAM50TA PO; -TRIA10.8 NS; +ceFAZolin 2GM PREMIX 2 GM/50 ML BAG IV; +fentaNYL PF VIAL 100 MCG/2 ML VIAL; +fentaNYL PF VIAL 100 MCG/2 ML VIAL IV; -fentaNYL PF VIAL 100 MCG/2 ML VIAL IV PRN
[2017-06-23] MEDS: IV NORMAL SALINE 1000ML BAG 1,000 ML IV ×2 (09:52)
[2017-06-23 10:09] LABS: ADD MAN DIFF? NO
[2017-06-23 10:19] LABS: BASO % 1 % (0-3); EOS # 0.5 x10^3/uL (0.0-0.7); EOS % 13 % (0-3); HEMATOCRIT 36.6 % (36.0-47.0); HEMOGLOBIN 11.9 g/dL (12.0-15.5); LYMPH # 1.3 x10^3/uL (1.0-4.8); LYMPH % 33 % (24-48); MEAN CORPUSCULAR HEMOGLOBIN 28 pg (25-35); MEAN CORPUSCULAR HGB CONC 33 g/dL (31-37); MEAN CORPUSCULAR VOLUME 87 fL (79-100); MONO # 0.5 x10^3/uL (0.0-1.1); MONO % 14 % (0-9); NEUT # 1.6 x10^3uL (1.8-7.7); NEUT % 39 % (31-73); PLATELET COUNT 206 x10^3/uL (140-400); RED CELL DISTRIBUTION WIDTH 19.6 % (11.5-14.5)
[2017-06-23 10:20] LABS: ANION GAP 7 (6-14); BLOOD UREA NITROGEN 26 mg/dL (7-20); CALCIUM 10.1 mg/dL (8.5-10.1); CARBON DIOXIDE 31 mmol/L (21-32); CHLORIDE 101 mmol/L (98-107); CREATININE 5.8 mg/dL (0.6-1.0); GFR 8.5; GLUCOSE 101 mg/dL (70-99); POTASSIUM 4.3 mmol/L (3.5-5.1); SODIUM 139 mmol/L (136-145)
[2017-06-23] MEDS: HEPARIN SODIUM 1,000 UNIT in IV NORMAL SALINE 100ML 100 ML IRR (10:58)
[2017-06-23 11:37] LABS: POC GLUCOSE 77 mg/dL (70-99)
[2017-06-23] MEDS ORDERED: HYDROcodone/APAP 5/325MG 1 TAB TABLET ×2 (12:16)
[2017-06-23] MEDS: fentaNYL PF VIAL 100 MCG/2 ML VIAL IV ×2 (12:17)
[2017-06-23] MEDS: HYDROcodone/APAP 5/325MG 1 TAB TABLET PO ×2 (12:19)
== END 2017-06-23 13:16 | disposition home or self-care (01) ==
LOC: SURG 08:55
DX: I12.0 Hypertensive chronic kidney disease with stage 5 chronic kidney disease or end stage renal disease (principal); N18.6 End stage renal disease; E11.22 Type 2 diabetes mellitus with diabetic chronic kidney disease; Z99.2 Dependence on renal dialysis; E11.39 Type 2 diabetes mellitus with other diabetic ophthalmic complication; H40.9 Unspecified glaucoma; E78.00 Pure hypercholesterolemia, unspecified; M19.90 Unspecified osteoarthritis, unspecified site; E03.9 Hypothyroidism, unspecified; F43.29 Adjustment disorder with other symptoms; D64.9 Anemia, unspecified; Z88.6 Allergy status to analgesic agent; Z90.710 Acquired absence of both cervix and uterus; Z90.79 Acquired absence of other genital organ(s); Z87.39 Personal history of other diseases of the musculoskeletal system and connective tissue; Z88.2 Allergy status to sulfonamides
CPT/HCPCS: 36415; 80048; 82962; 85025; J0690; J1100; J1644; J2250; J2405; J2704; J2710; J3010; J3490; J7030

== ENCOUNTER → 2017-07-07 | Outpatient (CLI) | payer MEDICARE ==
[~2017-07-07] MED LIST changes: -DEXAMETHASONE SOD PHOS 20 MG/5 ML VIAL.; -GLYCOPYRROLATE 1 MG/5 ML VIAL.; +IOHEXOL 240 MG/ML 50ML VIAL.; -LIDOCAINE 1% PF 2 ML VIAL. ID; -LIDOCAINE 2% PF Vial for OR 5 ML VIAL.; -MIDAZOLAM HCL/PF 2 MG/2 ML VIAL.; -MORPHINE SULFATE 2 MG/ML DISP.SYRIN. IV; -NEOSTIGMINE METHYLSULFATE 5 MG/5 ML SYRINGE.; -ONDANSETRON PF 4 MG/2 ML VIAL.; -ONDANSETRON PF 4 MG/2 ML VIAL. IV; -PROCHLORPERAZINE 10 MG/2 ML VIAL. IV; -PROPOFOL 20 ML IV; -ROCURONIUM 50 MG/5 ML VIAL.; -SEVOFLURANE 61 TO 120 MINUTES. IH; -ceFAZolin 2GM PREMIX 2 GM/50 ML BAG IV; -fentaNYL PF VIAL 100 MCG/2 ML VIAL; -fentaNYL PF VIAL 100 MCG/2 ML VIAL IV
[2017-07-07] MEDS: IOHEXOL 240 MG/ML 50ML VIAL. IJ (13:29)
== END ==
LOC: INTRAD 12:40
DX: Z46.82 Encounter for fitting and adjustment of non-vascular catheter (principal); E78.00 Pure hypercholesterolemia, unspecified; Z98.890 Other specified postprocedural states; I12.0 Hypertensive chronic kidney disease with stage 5 chronic kidney disease or end stage renal disease; E11.22 Type 2 diabetes mellitus with diabetic chronic kidney disease; N18.6 End stage renal disease; Z99.2 Dependence on renal dialysis; E66.9 Obesity, unspecified; Z90.49 Acquired absence of other specified parts of digestive tract; E11.42 Type 2 diabetes mellitus with diabetic polyneuropathy; K21.9 Gastro-esophageal reflux disease without esophagitis; Z90.710 Acquired absence of both cervix and uterus; Z85.51 Personal history of malignant neoplasm of bladder; M19.90 Unspecified osteoarthritis, unspecified site; Z96.653 Presence of artificial knee joint, bilateral; M10.9 Gout, unspecified; E03.9 Hypothyroidism, unspecified; F32.9 Major depressive disorder, single episode, unspecified; F17.200 Nicotine dependence, unspecified, uncomplicated; Z86.2 Personal history of diseases of the blood and blood-forming organs and certain disorders involving the immune mechanism
CPT/HCPCS: 49400; 74190; C1769; Q9966

== ENCOUNTER 2019-01-16 12:52 | Inpatient (IN) | payer MEDICARE ==
[~2019-01-16] VITALS: Ht 160 cm; Wt 80.9 kg
[~2019-01-16 12:52] MED LIST changes: +ACET325T9 PO; +ALLO300T PO; +AMLO10TA4 PO; +AMLO5TAB10 PO; +ASCO-219 PO; +ATOR10TA60 PO; +ATORVASTATIN CA80 MG PO; +CALC-31 PO; +CALC667T4 PO; +CARB25TA2 PO; +CLON0.1T PO; +DOCU-109 PO; +ESOM40SU PO; +FERR325T58 PO; +FURO40TA4 PO; +FURO80TA3 PO; +FURO80TA72 PO; +GLUC1CAP48 PO; +HUM100VI5; +HYDR-2761 PO; +HYDR-2869 PO; +HYDR-3164 PO; +HYDR-3165 PO; +HYDR-923 PO; +INSU100I13 SQ; +INSU100I27 SQ; +INSU100I9 SQ; +INSU100V13 SQ; -IOHEXOL 240 MG/ML 50ML VIAL.; +LATA2.5D3 EACHEYE; +LEVO125T5 PO; +LEVO175T5 PO; +LISI-130 PO; +LISI-334 PO; +LISI20TA PO; +METO5TAB4 PO; +MIDO5TAB PO; +OMEP40CA5 PO; +OXYC5TAB4 PO; +PARO10TA57 PO; +POLY255P11 PO; +POTA20PA21 PO; +POTA20TA84 PO; +PROC5TAB2 PO; +SENN1TAB29 PO; +SENN8.6C2 PO; +TIMO5DRO26 EACHEYE; +TIMO5DRO5 EACHEYE; +TIMO5SOL4 EACHEYE; +TORS20TA2 PO; +TRAM50TA PO; +TRIA10.8 NS
[2019-01-16] MEDS ORDERED: NITROGLYCERIN SUBLINGUAL 0.4 MG BOTTLE OF 25. SL PRN (13:15)
[2019-01-16] MEDS ORDERED: ASPIRIN CHEWABLE 81 MG TABLET. PO ONE (13:30)
--- NOTE | 2019-01-16 13:40 | EKG ---
[facility] [address] [place] [address] Test Date: 2019-01-16 Test Time: 12:59:57 Pat Name: CLARISSA PUGH Department: Room: Gender: F Sodium Chlorite Operator: : 1940 Requested By: ELVIRA PATTON Order Number: [id number] Reading MD: Measurements Intervals [place] Rate: 98 P: -43 MO: 130 QRS: -13 QRSD: 70 T: 22 QT: 354 QTc: 453 Interpretive Statements SINUS RHYTHM ATRIAL PREMATURE COMPLEX(ES) LEFTWARD AXIS QRS(T) CONTOUR ABNORMALITY CONSISTENT WITH ANTEROSEPTAL INFARCT AGE UNDETERMINED ABNORMAL ECG No previous ECG available for comparison
--- NOTE | 2019-01-16 13:59 | RAD ---
Study: PORTABLE CHEST 1V Indication: Chest pain. Comparison: 06/15/2016 Findings: Large bore central venous catheter with tip terminating in the expected location of the superior vena cava. No pneumothorax or large effusion. No lobar infiltrate. Asymmetric elevation of the left hemidiaphragm with mild overlying volume loss. Unchanged configuration of the cardiomediastinal silhouette with redemonstrated atherosclerotic calcifications of the aorta which is tortuous. No free air seen under the diaphragm. Impression: 1. Mild asymmetric elevation of left hemidiaphragm with overlying volume loss. No lobar infiltrate, large effusion or pneumothorax. 2. Large bore central venous catheter with the tip terminating expected location of the superior vena cava. 3. Redemonstrated tortuous thoracic aorta with atherosclerotic calcifications. Electronically signed by: JACOBY RODRÍGUEZ MD (01/16/2019 1:56 PM) [facility]
--- NOTE | 2019-01-16 14:18 | PHYS DOC ---
Past Medical History Past Medical History: Cancer, Diabetes-Type II, GERD, Glaucoma, Hypertension, Hypothyroid, Pancreatitis, Renal Failure Additional Past Medical Histor: CHOLESTEROL, bladder CA Past Surgical History: Cholecystectomy, Hysterectomy, Knee Replacement, Other Additional Past Surgical Histo: BLADDER CA TUMOR REMOVALS 2013, thyroidectomy, dialysis catheter placement Alcohol Use: None Drug Use: None Adult General Chief Complaint Chief Complaint: CHEST PAIN HPI HPI Patient is a 78 year old female who presents via EMS with complaining of chest pain. Patient has history of chronic renal failure and had peritoneal dialysis for 6 or 7 years and had dialysis catheter placement in left chest 5 days ago that was not working well and had a small dialyzed states the same day and was not able to use this anymore. Patient complaining of episodes of chest pain in l eft side of chest since last night as a sharp pain without radiation. Patient rated her pain 10 over 10 and states she doesn't know how far as her chest pain apart. Patient complaining of shortness of breath with episodes of chest pain without dizziness, palpitation, nausea and vomiting, fever and chills. Patient denies history of cardiac problem. Review of Systems Review of Systems Constitutional: Denies fever or chills [] Eyes: Denies change in visual acuity, redness, or eye pain [] HENT: Denies nasal congestion or sore throat [] Respiratory: Denies cough, reports shortness of breath [] Cardiovascular: No additional information not addressed in HPI [] GI: Denies abdominal pain, nausea, vomiting, bloody stools or diarrhea [] : Denies dysuria or hematuria [] Musculoskeletal: Denies back pain or joint pain [] Integument: Denies rash or skin lesions [] Neurologic: Denies headache, focal weakness or sensory changes [] Endocrine: Denies polyuria or polydipsia [] All other systems were reviewed and found to be within normal limits, except as documented in this note. Current Medications Current Medications Current Medications Medications (Trade) Dose Ordered Sig/María Start Time Stop Time Status Last Admin Dose Admin Aspirin (Children'S Aspirin) 324 mg 1X ONCE 01/16/19 13:30 01/16/19 13:31 DC 01/16/19 13:32 324 MG Nitroglycerin (Nitrostat) 0.4 mg PRN Q5MIN PRN 01/16/19 13:15 01/17/19 13:14 01/16/19 13:32 0.4 MG Allergies Allergies Allergies Coded Allergies Type Severity Reaction Last Updated Verified Sulfa (Sulfonamide Antibiotics) Allergy Intermediate 06/22/17 Yes benazepril Allergy Intermediate COUGH 06/22/17 Yes morphine Allergy Intermediate HEADACHE 06/22/17 Yes Physical Exam Physical Exam Constitutional: Well developed, well nourished, mild distress, non-toxic appearance. [] HENT: Normocephalic, atraumatic. Eyes: PERRLA, EOMI, conjunctiva normal, no discharge. [] Neck: Normal range of motion, no tenderness, supple, no stridor. [] Cardiovascular:Heart rate regular rhythm, no murmur [] Lungs & Thorax: No respiratory distress, left chest base rale, left dialysis catheter in place with no sign of infection, chest wall tenderness[] Abdomen: Bowel sounds normal, soft, no tenderness, no masses, no pulsatile masses. [] Skin: Warm, dry, no erythema, no rash. [] Back: No tenderness, no CVA tenderness. [] Extremities: No tenderness, no cyanosis, no clubbing, ROM intact, no edema. [] Neurologic: Alert and oriented X 3, no focal deficits noted. [] Psychologic: Affect anxious , judgement normal, mood normal. [] Current Patient Data Vital Signs Vital Signs Date Time Temp Pulse Resp B/P (MAP) Pulse Ox O2 Delivery O2 Flow Rate FiO2 01/16/19 15:35 96 18 141/72 (95) 98 Room Air 01/16/19 12:57 98.8 98.8 Lab Values Laboratory Tests Test 01/16/19 14:28 01/16/19 15:20 White Blood Count 22.1 x10^3/uL (4.0-11.0) H Red Blood Count 2.38 x10^6/uL (3.50-5.40) L Hemoglobin 7.8 g/dL (12.0-15.5) L Hematocrit 23.5 % (36.0-47.0) L Mean Corpuscular Volume 99 fL (79-100) Mean Corpuscular Hemoglobin 33 pg (25-35) Mean Corpuscular Hemoglobin Concent 33 g/dL (31-37) Red Cell Distribution Width 15.5 % (11.5-14.5) H Platelet Count 267 x10^3/uL (140-400) Neutrophils (%) (Auto) 81 % (31-73) H Lymphocytes (%) (Auto) 8 % (24-48) L Monocytes (%) (Auto) 10 % (0-9) H Eosinophils (%) (Auto) 1 % (0-3) Basophils (%) (Auto) 1 % (0-3) Neutrophils # (Auto) 17.9 x10^3/uL (1.8-7.7) H Lymphocytes # (Auto) 1.7 x10^3/uL (1.0-4.8) Monocytes # (Auto) 2.1 x10^3/uL (0.0-1.1) H Eosinophils # (Auto) 0.2 x10^3/uL (0.0-0.7) Basophils # (Auto) 0.3 x10^3/uL (0.0-0.2) H Platelet Estimate Pending Prothrombin Time 13.8 SEC (11.7-14.0) Prothrombin Time INR 1.1 (0.8-1.1) Sodium Level 137 mmol/L (136-145) Potassium Level 4.5 mmol/L (3.5-5.1) Chloride Level 97 mmol/L (98-107) L Carbon Dioxide Level 27 mmol/L (21-32) Anion Gap 13 (6-14) Blood Urea Nitrogen 31 mg/dL (7-20) H Creatinine 6.9 mg/dL (0.6-1.0) H Estimated GFR (Cockcroft-Gault) 6.9 BUN/Creatinine Ratio 4 (6-20) L Glucose Level 156 mg/dL (70-99) H Calcium Level 9.6 mg/dL (8.5-10.1) Magnesium Level 1.7 mg/dL (1.8-2.4) L Total Bilirubin 0.7 mg/dL (0.2-1.0) Aspartate Amino Transferase (AST) 27 U/L (15-37) Alanine Aminotransferase (ALT) 24 U/L (14-59) Alkaline Phosphatase 85 U/L (46-116) Creatine Kinase 33 U/L (26-192) Troponin I Quantitative < 0.017 ng/mL (0.000-0.055) JO-Mfb-C-Type Natriuretic Peptide 9952 pg/mL (0-449) H Total Protein 6.9 g/dL (6.4-8.2) Albumin 2.2 g/dL (3.4-5.0) L Albumin/Globulin Ratio 0.5 (1.0-1.7) L Lipase 71 U/L (73-393) L Lactic Acid Level 1.5 mmol/L (0.4-2.0) Laboratory Tests 01/16/19 14:28 Laboratory Tests 01/16/19 14:28 EKG EKG EKG interpreted by me. EKG at 1259 showed normal sinus rhythm at rate of 98, PVCs, left santos axis, poor R-wave progress in anteroseptal leads, no acute ST and T-wave elevation Radiology/Procedures Radiology/Procedures [][facility] [address] [place] [address] IMAGING REPORT Signed PATIENT: CLARISSA PUGH ACCOUNT: [id number] : 1940 LOCATION: ER AGE: 78 SEX: F EXAM STATUS: REG ER ORD. PHYSICIAN: ELVIRA PATTON MD REASON: chest pain PROCEDURE: PORTABLE CHEST 1V Study: PORTABLE CHEST 1V Indication: Chest pain. Comparison: 06/15/2016 Findings: Large bore central venous catheter with tip terminating in the expected location of the superior vena cava. No pneumothorax or large effusion. No lobar infiltrate. Asymmetric elevation of the left hemidiaphragm with mild overlying volume loss. Unchanged configuration of the cardiomediastinal silhouette with redemonstrated atherosclerotic calcifications of the aorta which is tortuous. No free air seen under the diaphragm. Impression: 1. Mild asymmetric elevation of left hemidiaphragm with overlying volume loss. No lobar infiltrate, large effusion or pneumothorax. 2. Large bore central venous catheter with the tip terminating expected location of the superior vena cava. 3. Redemonstrated tortuous thoracic aorta with atherosclerotic calcifications. Electronically signed by: JACOBY RODRÍGUEZ MD (01/16/2019 1:56 PM) [facility] DICTATED and SIGNED BY: JACOBY RODRÍGUEZ MD DATE: 01/16/19 0331 Course & Med Decision Making Course & Med Decision Making Pertinent Labs and Imaging studies reviewed. (See chart for details) Evaluation of patient in ER showed 78-year-old female patient with heart score of 4 with complaining of left-sided chest pain since last night intermittently. Patient treated with nitroglycerin and felt better. Patient had recent hospitalization at [facility] because of infection of peritoneal dialysis and had 2 unsuccessful central line dialysis catheter the third one is not working well. Patient treated with antibiotic teach at Hospital and did not have fever in ER. Patient had white count of 22,000 without elevation of lactic acid or fever or hypotension. Patient does not have hyperkalemia. Patient requiring admission for further evaluation and treatment. Discussed with Dr. Jose Luis Gonzalez who is in agreement with admission. Discussed findings and plan with patient and family, who acknowledge understanding and agreement. Dragon Disclaimer Dragon Disclaimer This electronic medical record was generated, in whole or in part, using a voice recognition dictation system. Departure Departure Impression: Primary Impression: Acute chest pain Additional Impressions: ESRD (end stage renal disease) on dialysis Leukocytosis Missed dialysis Anemia Hypomagnesemia Disposition: ADMITTED INPATIENT (@1611) Admitting Physician: Jose Luis Gonzalez (accepted admission at 1610) Condition: IMPROVED Referrals: JOSE LUIS GONZALEZ MD (PCP) The HEART Score for CP Pts HEART Score for Chest Pain: HEART Score for Chest Pain Response (Comments) Value History Slighlty/Non-Suspicious 0 ECG Nonspecific Repolarizatio 1 Age > 65 2 Risk Factors 1 or 2 Risk Factors 1 Troponin < Normal Limit 0 Total 4 Risk Factors: Risk Factors: DM, Current or recent (<one month) smoker, HTN, HLP, family history of CAD, obesity. Risk Scores: Score 0 - 3: 2.5% MACE over next 6 weeks - Discharge Home Score 4 - 6: 20.3% MACE over next 6 weeks - Admit for Clinical Observation Score 7 - 10: 72.7% MACE over next 6 weeks - Early Invasive Strategies Problem Qualifiers Additional Impressions: Leukocytosis Leukocytosis type: unspecified Qualified Codes: D72.829 - Elevated white blood cell count, unspecified Anemia Anemia type: unspecified type Qualified Codes: D64.9 - Anemia, unspecified ELVIRA PATTON MD Jan 16, 2019 14:18
[2019-01-16 14:46] LABS: BASO # 0.3 x10^3/uL (0.0-0.2); BASO % 1 % (0-3); EOS # 0.2 x10^3/uL (0.0-0.7); EOS % 1 % (0-3); HEMATOCRIT 23.5 % (36.0-47.0); HEMOGLOBIN 7.8 g/dL (12.0-15.5); LYMPH # 1.7 x10^3/uL (1.0-4.8); LYMPH % 8 % (24-48); MEAN CORPUSCULAR HEMOGLOBIN 33 pg (25-35); MEAN CORPUSCULAR HGB CONC 33 g/dL (31-37); MEAN CORPUSCULAR VOLUME 99 fL (79-100); MONO # 2.1 x10^3/uL (0.0-1.1); MONO % 10 % (0-9); NEUT # 17.9 x10^3/uL (1.8-7.7); NEUT % 81 % (31-73); PLATELET COUNT 267 x10^3/uL (140-400); RED BLOOD COUNT 2.38 x10^6/uL (3.50-5.40); RED CELL DISTRIBUTION WIDTH 15.5 % (11.5-14.5); WHITE BLOOD COUNT 22.1 x10^3/uL (4.0-11.0)
[2019-01-16 14:57] LABS: CALCIUM 9.6 mg/dL (8.5-10.1); CREATININE 6.9 mg/dL (0.6-1.0); GFR 6.9; POTASSIUM 4.5 mmol/L (3.5-5.1)
[2019-01-16 15:02] LABS: PROTHROMBIN TIME PATIENT 13.8 SEC (11.7-14.0)
[2019-01-16 15:03] LABS: ALBUMIN 2.2 g/dL (3.4-5.0); ALBUMIN/GLOBULIN RATIO 0.5 (1.0-1.7); MAGNESIUM 1.7 mg/dL (1.8-2.4); TOTAL BILIRUBIN 0.7 mg/dL (0.2-1.0); TOTAL PROTEIN 6.9 g/dL (6.4-8.2)
[2019-01-16 16:12] LABS: % BASOS 1 % (0-3); % EOS 1 % (0-5); % MONOS 7 % (0-10); % SEGS 74 % (35-66)
[2019-01-16 16:13] LABS: % BANDS 6 % (0-9); % LYMPHS 11 % (24-48); ANISOCYTOSIS SLIGHT; PLT ESTIMATE ADEQUATE (ADEQUATE); POLYCHROMASIA SLIGHT
[2019-01-16] MEDS ORDERED: HYDROcodone/APAP 5/325MG 1 TAB TABLET PO ONE (16:30)
[2019-01-16] MEDS ORDERED: CETI10TA16 PO (19:31)
[2019-01-16] MEDS ORDERED: OMEP20CA10 PO (19:31)
[2019-01-16] MEDS ORDERED: LATA2.5D3 EACHEYE (19:31)
[2019-01-16] MEDS ORDERED: ESOM40CA PO (19:31)
[2019-01-16] MEDS ORDERED: CIPR500T94 PO (19:31)
[2019-01-16] MEDS ORDERED: INSU100C SQ (19:31)
[2019-01-16] MEDS ORDERED: INSU100I13 SQ (19:31)
[2019-01-16] MEDS ORDERED: MIDO5TAB PO (19:31)
[2019-01-16] MEDS ORDERED: LEVO200T5 PO (19:31)
[2019-01-16] MEDS ORDERED: TIMO5DRO21 OU (19:31)
[2019-01-16] MEDS ORDERED: FLUT9.9S NS (19:31)
[2019-01-16] MEDS ORDERED: POLY17PO29 PO (19:31)
[2019-01-16] MEDS ORDERED: TRAM50TA PO (19:31)
[2019-01-16] MEDS ORDERED: MEGE40TA PO (19:31)
[2019-01-16] MEDS ORDERED: ONDA4TAB11 PO (19:31)
[2019-01-16] MEDS ORDERED: IV DEXTROSE 5% 250 ML BAG. IV PRN (19:45)
[2019-01-16] MEDS ORDERED: DEXTROSE 50% 25 GM / 50ML DISP.SYRIN. IV PRN (19:45)
[2019-01-16 19:55] VITALS: BP 143/69
[2019-01-16] MEDS: INSULIN GLARGINE SYRINGE. SQ SCH (21:00)
[2019-01-16] MEDS: ATORVASTATIN CALCIUM 40 MG TABLET. PO SCH (21:47)
[2019-01-16] MEDS: MIDODRINE 5 MG TABLET PO SCH (21:47)
[2019-01-16] MEDS: LATANOPROST 0.005% OPHTH SOLUTION 2.5ML BOTTLE. OU SCH (21:47)
[2019-01-16 22:05] VITALS: BP 129/67
[2019-01-17] VITALS (7 sets, daily range): BP systolic 104–134; BP diastolic 62–74
[2019-01-17] MEDS: PANTOPRAZOLE 40 MG TABLET.DR. PO SCH (07:03)
[2019-01-17] MEDS: LEVOTHYROXINE 175 MCG TABLET PO SCH (07:03)
[2019-01-17] MEDS ORDERED: INSULIN LISPRO 300 UNITS/3 ML VIAL. SQ SCH (08:00)
[2019-01-17] MEDS: INSULIN LISPRO 300 UNITS/3 ML VIAL. SQ SCH ×3 (08:00→16:31)
[2019-01-17] MEDS ORDERED: LIDOCAINE 1%/EPI 1:100,000 20 ML VIAL. ONE (08:07)
[2019-01-17] MEDS ORDERED: MIDAZOLAM HCL/PF 2 MG/2 ML VIAL. ONE (08:13)
[2019-01-17] MEDS ORDERED: fentaNYL PF VIAL 100 MCG/2 ML VIAL ONE (08:13)
[2019-01-17] MEDS ORDERED: MIDAZOLAM HCL/PF 2 MG/2 ML VIAL. IV ONE (08:15)
[2019-01-17] MEDS ORDERED: LIDOCAINE 1%/EPI 1:100,000 20 ML VIAL. INJ ONE (08:15)
[2019-01-17] MEDS ORDERED: fentaNYL PF VIAL 100 MCG/2 ML VIAL IV ONE (08:15)
--- NOTE | 2019-01-17 08:37 | PDOC ---
Provider Note Provider Note [id number] JOSE LUIS TEIXEIRA MD Jan 17, 2019 08:37
--- NOTE | 2019-01-17 08:49 | HP ---
ADMIT DATE: 01/17/2019 CHIEF COMPLAINT: Nonfunctional dialysis catheter. HISTORY OF PRESENT ILLNESS: An 78-year-old white female who is an insulin-dependent diabetic, managed by an fisher trammel net, sees Dr. Randhawa, and usually at [facility] for her dialysis needs. Apparently, she has been doing peritoneal dialysis for quite a while, but then recently had another episode of bacterial peritonitis and then dialysis catheter was taken out and replaced with a central venous dialysis catheter, which is now apparently has been clogged and is the source of pain. She is not in the room at this time, apparently down and Interventional Radiology attempted to open this catheter. I have not seen her personally as the patient for more than a year. PAST MEDICAL HISTORY: All meds documented. ALLERGIES: TO SULFA AND BENAZEPRIL. CURRENT MEDICATIONS: She sees an fisher trammel net and takes low-dose insulin and other meds. SOCIAL HISTORY: Unknown at this time. Nonsmoker. Does not recall. FAMILY HISTORY: Negative. REVIEW OF SYSTEMS: Negative. OBJECTIVE: HEENT: Moderate pallor, otherwise normal. NECK: No masses, nodes, or bruits. LUNGS: Clear. CARDIOVASCULAR: Regular rate. No murmur. ABDOMEN: Obese, soft, nontender. EXTREMITIES: Decreased pedal and radial pulses. No edema. No joint or skin lesions. NEUROLOGIC: Physiologic. ASSESSMENT: 1. End-stage renal disease with recent central venous dialysis catheter, apparently having some thrombotic problems. 2. Anemia secondary to chronic renal insufficiency with secondary leukocytosis, cause unknown. 3. Insulin-dependent diabetes, well controlled. PLAN: As ordered. JOSE LUIS TEIXEIRA MD DR: LATOYA/rahul JOB#: [id number] / [id number]
[2019-01-17] MEDS: FLUTICASONE 50MCG/NASAL SPRAY 16GM BOTTLE. NS SCH (09:00)
[2019-01-17] MEDS ORDERED: NON FORMULARY ITEM (Omeprazole 1 CAP) PO SCH (09:00)
[2019-01-17] MEDS: POLYETHYLENE GLYCOL 3350 17 GM PACKET. PO SCH (09:00)
[2019-01-17] MEDS: CETIRIZINE HCL 10 MG TABLET. PO SCH (09:00)
[2019-01-17] MEDS: MIDODRINE 5 MG TABLET PO SCH ×3 (09:00→20:02)
[2019-01-17] MEDS: MEGESTROL 20 MG TABLET. PO SCH (10:14)
[2019-01-17] MEDS ORDERED: IV NORMAL SALINE 1000ML BAG 1,000 ML IV PRN ×2 (11:00)
[2019-01-17] MEDS ORDERED: DIALYSIS PATIENT. MC PRN ×2 (11:00)
[2019-01-17] MEDS ORDERED: ALBUMIN HUMAN 25% 200 ML IV PRN (11:00)
--- NOTE | 2019-01-17 11:32 | PDOC2 ---
CONSULT Date of Consult Date of Consult DATE: 01/17/19 TIME: 11:23 Reason for Consult Reason for Consult: ESRD Identification/Chief Complaint Chief Complaint " Not giving any history - states feeling fine' Source Source: Chart review, Patient History of Present Illness Reason for Visit: 78-year-old AAF ESRD on HD , she has been on peritoneal dialysis for quite a while, but then recently had another episode of bacterial peritonitis and then dialysis catheter was taken out and now on HD - has TDC which was found to be clotted by the OP dialysis unit last week . At presentation she also c/o chest pain- currently denies any pauin or SOB. States she thinks she goes for HD TTS , not sure when was her L[facility] HD last week . Not a good Historian She just had Tunnelled HDC replaced by IR this am Past Medical History Cardiovascular: HTN Pulmonary: No pertinent hx CENTRAL NERVOUS SYSTEM: Other GI: GERD Heme/Onc: Anemia NOS, Cancer Hepatobiliary: No pertinent hx Psych: No pertinent hx Musculoskeletal: Osteoarthritis Rheumatologic: No pertinent hx Infectious disease: No pertinent hx Renal/: Chronic renal failure Endocrine: Diabetes Past Surgical History Past Surgical History: Cholecystectomy, Total knee replacement, Hysterectomy, Other Family History Family History: No Significant, Diabetes, Hypertension Social History ALCOHOL: none Drugs: None Lives: with Family Current Problem List Problem List Problems Medical Problems: (1) Acute chest pain Status: Acute (2) Anemia Status: Acute (3) ESRD (end stage renal disease) on dialysis Status: Acute (4) Hypomagnesemia Status: Acute (5) Leukocytosis Status: Acute (6) Missed dialysis Status: Acute Current Medications Current Medications Current Medications Aspirin (Children'S Aspirin) 324 mg 1X ONCE PO Last administered on 01/16/19at 13:32; Start 01/16/19 at 13:30; Stop 01/16/19 at 13:31; Status DC Nitroglycerin (Nitrostat) 0.4 mg PRN Q5MIN PRN SL CP RATING > 1/10 Last administered on 01/16/19at 13:32; Start 01/16/19 at 13:15; Stop 01/17/19 at 13:14 Acetaminophen/ Hydrocodone Bitart (Lortab 5/325) 1 tab 1X ONCE PO Last administered on 01/16/19at 16:32; Start 01/16/19 at 16:30; Stop 01/16/19 at 16:31; Status DC Cetirizine HCl (ZyrTEC) 10 mg DAILY PO ; Start 01/17/19 at 09:00 Latanoprost (Xalatan) 1 drop QHS OU Last administered on 01/16/19at 21:48; Start 01/16/19 at 21:00 Levothyroxine Sodium (Synthroid) 175 mcg DAILY06 PO Last administered on 01/17/19at 07:03; Start 01/17/19 at 06:00 Midodrine (Proamatine) 5 mg TID PO Last administered on 01/16/19at 21:48; Start 01/16/19 at 21:00 Polyethylene Glycol (miraLAX PACKET) 17 gm DAILY PO ; Start 01/17/19 at 09:00 Tramadol HCl (Ultram) 100 mg PRN QHS PRN PO BEDTIME PAIN; Start 01/16/19 at 19:45 Pantoprazole Sodium (Protonix) 40 mg DAILYAC PO Last administered on 01/17/19at 07:03; Start 01/17/19 at 07:30 Fluticasone Propionate (Flonase) 2 spray DAILY NS ; Start 01/17/19 at 09:00 Insulin Glargine (Lantus Syringe) 8 unit QHS SQ ; Start 01/16/19 at 21:00 Insulin Human Lispro (HumaLOG) 4 units TIDWMEALS SQ ; Start 01/17/19 at 08:00 Megestrol Acetate (Megace) 40 mg DAILY PO Last administered on 01/17/19at 10:20; Start 01/17/19 at 09:00 Non-Formulary Medication (Omeprazole ) 1 cap DAILY PO ; Start 01/17/19 at 09:00; Status UNV Ondansetron HCl (Zofran Odt) 8 mg PRN Q8HRS PRN PO NAUSEA/VOMITING; Start 01/16/19 at 20:00 Insulin Human Lispro (HumaLOG) 0-5 UNITS TIDWMEALS SQ ; Start 01/17/19 at 08:00; Stop 01/17/19 at 08:33; Status DC Dextrose (Dextrose 50%-Water Syringe) 12.5 gm PRN Q15MIN PRN IV SEE COMMENTS; Start 01/16/19 at 19:45 Dextrose 250 ml PRN Q15MIN PRN IV SEE COMMENTS; Start 01/16/19 at 19:45 Atorvastatin Calcium (Lipitor) 80 mg QHS PO Last administered on 01/16/19at 21:48; Start 01/16/19 at 21:00 Lidocaine/ Epinephrine (LIDOCAINE 1%-EPI 1:100,000 Multi-Dose) 20 ml STK-MED ONCE .ROUTE ; Start 01/17/19 at 08:07; Stop 01/17/19 at 08:07; Status DC Midazolam HCl (Versed) 2 mg 1X ONCE IV Last administered on 01/17/19at 09:08; Start 01/17/19 at 08:15; Stop 01/17/19 at 08:16; Status DC Fentanyl Citrate (Fentanyl 2ml Vial) 100 mcg 1X ONCE IV Last administered on 01/17/19at 09:08; Start 01/17/19 at 08:15; Stop 01/17/19 at 08:16; Status DC Lidocaine/ Epinephrine (LIDOCAINE 1%-EPI 1:100,000 Multi-Dose) 20 ml 1X ONCE INJ Last administered on 01/17/19at 09:08; Start 01/17/19 at 08:15; Stop 01/17/19 at 08:16; Status DC Cefazolin Sodium/ Dextrose 50 ml @ 100 mls/hr 1X ONCE IV Last administered on 01/17/19at 09:08; Start 01/17/19 at 08:15; Stop 01/17/19 at 08:44; Status DC Midazolam HCl (Versed) 2 mg STK-MED ONCE .ROUTE ; Start 01/17/19 at 08:13; Stop 01/17/19 at 08:13; Status DC Fentanyl Citrate (Fentanyl 2ml Vial) 100 mcg STK-MED ONCE .ROUTE ; Start 01/17/19 at 08:13; Stop 01/17/19 at 08:13; Status DC Active Scripts Active Polyethylene Glycol 3350 255 Gm Powder 17 Gm PO DAILY Reported Cetirizine Hcl 10 Mg Tablet 1 Tab PO DAILY Tramadol Hcl 50 Mg Tablet 100 Mg PO HS PRN Timoptic 0.25% (Timolol Maleate) 5 Ml Drops 5 Ml OU HS Ondansetron Hcl 4 Mg Tablet 8 Mg PO PRN Q8HRS PRN Omeprazole 20 Mg Capsule.dr 1 Cap PO DAILY Miralax (Polyethylene Glycol 3350) 17 Gm Powd.pack 1 Packet PO PRN DAILY PRN Midodrine Hcl 5 Mg Tablet 5 Mg PO TID Megestrol Acetate 40 Mg Tablet 40 Mg PO DAILY Levothyroxine Sodium 200 Mcg Tablet 1 Tab PO DAILY Latanoprost 2.5 Ml Drops 1 Drop EACHEYE QHS Lantus Solostar (Insulin Glargine,Hum.rec.anlog) 100 Unit/1 Ml Insuln.pen 8 Unit SQ QHS Humalog (Insulin Lispro) 100 Unit/1 Ml Cartridge 4 Unit SQ TIDWMEALS Flonase Allergy Relief (Fluticasone Propionate) 9.9 Ml Sharples.susp 1 Sprays NS DAILY Nexium Capsule (Esomeprazole Magnesium) 40 Mg Capsule. 1 Cap PO DAILY Cipro (Ciprofloxacin Hcl) 500 Mg Tablet 1 Tab PO DAILY Lodosyn (Carbidopa) 25 Mg Tablet 100 Mg PO TID Amlodipine Besylate 5 Mg Tablet 5 Mg PO DAILY Hydrocodone-Apap 5-325 (Hydrocodone Bit/Acetaminophen) 1 Each Tablet 1 Tab PO PRN Q6HRS PRN Furosemide 40 Mg Tablet 40 Mg PO DAILY K-Tab ER (Potassium Chloride) 20 Meq Tablet.er 20 Meq PO DAILY Calcium Acetate 667 Mg Tablet 667 Mg PO DAILY Atorvastatin Calcium 80 Mg Tablet 80 Mg PO DAILY Levemir Flextouch (Insulin Detemir) 100 Unit/1 Ml Insuln.pen 12 Units SQ HS Lisinopril 20 Mg Tablet 20 Mg PO DAILY Levothyroxine Sodium 175 Mcg Tablet 175 Mcg PO DAILY Novolin 70-30 100 Unit/Ml Vial (Hum Insulin Nph/Reg Insulin Hm) 100 Unit/1 Ml Vial Omeprazole 40 Mg Capsule. 1 Cap PO DAILY Timoptic-Xe (Timolol Maleate) 5 Ml Anjelica.gel 1 Drop EACHEYE DAILYWBKFT Latanoprost 2.5 Ml Drops 1 Drop EACHEYE QHS Humalog Mix 50-50 Kwikpen (Insulin Npl/Insulin Lispro) 100 Unit/1 Ml Insuln.pen 100 Unit SQ Tylenol (Acetaminophen) 325 Mg Tablet 325 Mg PO PRN Q6HRS Allergies Allergies: Coded Allergies: Sulfa (Sulfonamide Antibiotics) (Verified Allergy, Intermediate, 06/22/17) benazepril (Verified Allergy, Intermediate, COUGH, 06/22/17) morphine (Verified Adverse Reaction, Intermediate, HEADACHE, 01/16/19) ROS Review of System Per HPI Physical Exam Physical Exam GEN - NAD HEENT: OM moist NECK: supple LUNGS: Clear, Non labored CARDIOVASCULAR: Regular rate. ABDOMEN: Obese, soft, nontender. EXTREMITIES: No edema. Ski No rash NEUROLOGIC: grossly normal No Swan Vital Signs Vital Signs Date Time Temp Pulse Resp B/P (MAP) Pulse Ox O2 Delivery O2 Flow Rate FiO2 01/17/19 09:08 19 100 Nasal Cannula 2.0 01/17/19 09:08 98 01/17/19 07:00 98.7 128/62 (84) 98.7 Assessment & Plan ESRD - Per Pt TTS Was on PD- cathter removed after peritonitis x? 2 Last HD ? - Pt not sure Dialysis today as ordered, Dw Dialyssis RN Clotted access- Tunneled HDC replaced this am by IR Anemia- Hgb low ? Acute Vs Chronic - defer to primary Will start Aranesp per protocol HTN- BP at goal Continue home antihypertensives Labs Labs Laboratory Tests Test 01/16/19 14:28 01/16/19 15:20 01/16/19 17:36 01/16/19 19:05 White Blood Count 22.1 x10^3/uL (4.0-11.0) Red Blood Count 2.38 x10^6/uL (3.50-5.40) Hemoglobin 7.8 g/dL (12.0-15.5) Hematocrit 23.5 % (36.0-47.0) Mean Corpuscular Volume 99 fL (79-100) Mean Corpuscular Hemoglobin 33 pg (25-35) Mean Corpuscular Hemoglobin Concent 33 g/dL (31-37) Red Cell Distribution Width 15.5 % (11.5-14.5) Platelet Count 267 x10^3/uL (140-400) Neutrophils (%) (Auto) 81 % (31-73) Lymphocytes (%) (Auto) 8 % (24-48) Monocytes (%) (Auto) 10 % (0-9) Eosinophils (%) (Auto) 1 % (0-3) Basophils (%) (Auto) 1 % (0-3) Neutrophils # (Auto) 17.9 x10^3/uL (1.8-7.7) Lymphocytes # (Auto) 1.7 x10^3/uL (1.0-4.8) Monocytes # (Auto) 2.1 x10^3/uL (0.0-1.1) Eosinophils # (Auto) 0.2 x10^3/uL (0.0-0.7) Basophils # (Auto) 0.3 x10^3/uL (0.0-0.2) Segmented Neutrophils % 74 % (35-66) Band Neutrophils % 6 % (0-9) Lymphocytes % 11 % (24-48) Monocytes % 7 % (0-10) Eosinophils % 1 % (0-5) Basophils % 1 % (0-3) Platelet Estimate Adequate (ADEQUATE) Polychromasia Slight Anisocytosis Slight Prothrombin Time 13.8 SEC (11.7-14.0) Prothromb Time International Ratio 1.1 (0.8-1.1) Sodium Level 137 mmol/L (136-145) Potassium Level 4.5 mmol/L (3.5-5.1) Chloride Level 97 mmol/L (98-107) Carbon Dioxide Level 27 mmol/L (21-32) Anion Gap 13 (6-14) Blood Urea Nitrogen 31 mg/dL (7-20) Creatinine 6.9 mg/dL (0.6-1.0) Estimated GFR (Cockcroft-Gault) 6.9 BUN/Creatinine Ratio 4 (6-20) Glucose Level 156 mg/dL (70-99) Calcium Level 9.6 mg/dL (8.5-10.1) Magnesium Level 1.7 mg/dL (1.8-2.4) Total Bilirubin 0.7 mg/dL (0.2-1.0) Aspartate Amino Transf (AST/SGOT) 27 U/L (15-37) Alanine Aminotransferase (ALT/SGPT) 24 U/L (14-59) Alkaline Phosphatase 85 U/L (46-116) Creatine Kinase 33 U/L (26-192) Troponin I Quantitative < 0.017 ng/mL (0.000-0.055) < 0.017 ng/mL (0.000-0.055) EM-Vzx-T-Type Natriuretic Peptide 9952 pg/mL (0-449) Total Protein 6.9 g/dL (6.4-8.2) Albumin 2.2 g/dL (3.4-5.0) Albumin/Globulin Ratio 0.5 (1.0-1.7) Lipase 71 U/L (73-393) Lactic Acid Level 1.5 mmol/L (0.4-2.0) Glucose (Fingerstick) 175 mg/dL (70-99) Test 01/16/19 20:46 01/16/19 22:00 Glucose (Fingerstick) 169 mg/dL (70-99) Lactic Acid Level 1.0 mmol/L (0.4-2.0) Troponin I Quantitative < 0.017 ng/mL (0.000-0.055) Laboratory Tests Test 01/16/19 14:28 01/16/19 15:20 01/16/19 17:36 01/16/19 19:05 White Blood Count 22.1 x10^3/uL (4.0-11.0) Red Blood Count 2.38 x10^6/uL (3.50-5.40) Hemoglobin 7.8 g/dL (12.0-15.5) Hematocrit 23.5 % (36.0-47.0) Mean Corpuscular Volume 99 fL (79-100) Mean Corpuscular Hemoglobin 33 pg (25-35) Mean Corpuscular Hemoglobin Concent 33 g/dL (31-37) Red Cell Distribution Width 15.5 % (11.5-14.5) Platelet Count 267 x10^3/uL (140-400) Neutrophils (%) (Auto) 81 % (31-73) Lymphocytes (%) (Auto) 8 % (24-48) Monocytes (%) (Auto) 10 % (0-9) Eosinophils (%) (Auto) 1 % (0-3) Basophils (%) (Auto) 1 % (0-3) Neutrophils # (Auto) 17.9 x10^3/uL (1.8-7.7) Lymphocytes # (Auto) 1.7 x10^3/uL (1.0-4.8) Monocytes # (Auto) 2.1 x10^3/uL (0.0-1.1) Eosinophils # (Auto) 0.2 x10^3/uL (0.0-0.7) Basophils # (Auto) 0.3 x10^3/uL (0.0-0.2) Segmented Neutrophils % 74 % (35-66) Band Neutrophils % 6 % (0-9) Lymphocytes % 11 % (24-48) Monocytes % 7 % (0-10) Eosinophils % 1 % (0-5) Basophils % 1 % (0-3) Platelet Estimate Adequate (ADEQUATE) Polychromasia Slight Anisocytosis Slight Prothrombin Time 13.8 SEC (11.7-14.0) Prothromb Time International Ratio 1.1 (0.8-1.1) Sodium Level 137 mmol/L (136-145) Potassium Level 4.5 mmol/L (3.5-5.1) Chloride Level 97 mmol/L (98-107) Carbon Dioxide Level 27 mmol/L (21-32) Anion Gap 13 (6-14) Blood Urea Nitrogen 31 mg/dL (7-20) Creatinine 6.9 mg/dL (0.6-1.0) Estimated GFR (Cockcroft-Gault) 6.9 BUN/Creatinine Ratio 4 (6-20) Glucose Level 156 mg/dL (70-99) Calcium Level 9.6 mg/dL (8.5-10.1) Magnesium Level 1.7 mg/dL (1.8-2.4) Total Bilirubin 0.7 mg/dL (0.2-1.0) Aspartate Amino Transf (AST/SGOT) 27 U/L (15-37) Alanine Aminotransferase (ALT/SGPT) 24 U/L (14-59) Alkaline Phosphatase 85 U/L (46-116) Creatine Kinase 33 U/L (26-192) Troponin I Quantitative < 0.017 ng/mL (0.000-0.055) < 0.017 ng/mL (0.000-0.055) ZR-Isp-F-Type Natriuretic Peptide 9952 pg/mL (0-449) Total Protein 6.9 g/dL (6.4-8.2) Albumin 2.2 g/dL (3.4-5.0) Albumin/Globulin Ratio 0.5 (1.0-1.7) Lipase 71 U/L (73-393) Lactic Acid Level 1.5 mmol/L (0.4-2.0) Glucose (Fingerstick) 175 mg/dL (70-99) Test 01/16/19 20:46 01/16/19 22:00 Glucose (Fingerstick) 169 mg/dL (70-99) Lactic Acid Level 1.0 mmol/L (0.4-2.0) Troponin I Quantitative < 0.017 ng/mL (0.000-0.055) Review All relevant outside records, renal labs, imaging studies, telemetry/EKG's were reviewed. Images Images CxR-\\ 1. Mild asymmetric elevation of left hemidiaphragm with overlying volume loss. No lobar infiltrate, large effusion or pneumothorax. 2. Large bore central venous catheter with the tip terminating expected location of the superior vena cava. 3. Redemonstrated tortuous thoracic aorta with atherosclerotic calcifications. GRACIELA FRIAS MD Jan 17, 2019 11:32
--- NOTE | 2019-01-17 12:13 | NUR ---
SS following for discharge planning. SS reviewed pt chart. Pt is from home and is currently requiring oxygen. Pt is on peritoneal dialysis at home. No discharge needs noted at this time. SS will continue to follow for discharge planning.
[2019-01-17] MEDS: LATANOPROST 0.005% OPHTH SOLUTION 2.5ML BOTTLE. OU SCH (20:02)
[2019-01-17] MEDS: ATORVASTATIN CALCIUM 40 MG TABLET. PO SCH (20:03)
[2019-01-17] MEDS: INSULIN GLARGINE SYRINGE. SQ SCH (20:56)
[2019-01-17] MEDS ORDERED: DARBEPOETIN ALFA 60 MCG/0.3 ML DISP.SYRIN. SQ SCH (21:00)
[2019-01-18 03:15] VITALS: BP 118/70
[2019-01-18] MEDS: PANTOPRAZOLE 40 MG TABLET.DR. PO SCH ×2 (05:34→10:02)
[2019-01-18] MEDS: LEVOTHYROXINE 175 MCG TABLET PO SCH (05:34)
[2019-01-18 07:55] VITALS: BP 111/61
--- NOTE | 2019-01-18 08:40 | RAD ---
Replacement of left internal jugular tunneled hemodialysis catheter 01/18/2019 INDICATION: Poorly functioning catheter. Discussion: The risks and benefits of the procedure were discussed the patient. Informed consent was obtained. A timeout procedure was performed. Fluoroscopic imaging demonstrates the previously existing left internal jugular tunneled central venous catheter to have its tip, somewhat high and the cavoatrial junction. Preprocedural chest radiograph demonstrates the catheter to be significantly foreshortened in the upright position. A guidewire was advanced through this catheter into the IVC. The pacing catheter was removed over the wire and replaced with a identical 28 cm palindrome tunneled dialysis catheter, the tip was positioned or inferiorly in the right atrium. Catheter was found to flush and aspirate normally. The catheter was secured in place. Sterile dressings were applied. The patient tolerated the procedure without immediate complication. Total fluoroscopy time 1.0 minutes Dose area product:2 Gycm2 Sedation: The procedures performed under conscious sedation including continuous cardiopulmonary monitoring via a dedicated sedation nurse. [id number] sedation time: 15 minutes Impression: Replacement of left internal jugular tunneled hemodialysis catheter
--- NOTE | 2019-01-18 08:47 | PDOC ---
Provider Note Provider Note vss, no temp- mild tachy , no new sxs - she states she has not been anemic in past , and will repeat cbc re high wbc/anemia now- rest per renal JOSE LUIS TEIXEIRA MD Jan 18, 2019 08:47
[2019-01-18 09:09] LABS: BASO # 0.1 x10^3/uL (0.0-0.2); BASO % 1 % (0-3); EOS # 0.2 x10^3/uL (0.0-0.7); EOS % 1 % (0-3); HEMATOCRIT 22.9 % (36.0-47.0); HEMOGLOBIN 7.5 g/dL (12.0-15.5); LYMPH # 2.7 x10^3/uL (1.0-4.8); LYMPH % 17 % (24-48); MEAN CORPUSCULAR HEMOGLOBIN 33 pg (25-35); MEAN CORPUSCULAR HGB CONC 33 g/dL (31-37); MEAN CORPUSCULAR VOLUME 102 fL (79-100); MONO # 2.5 x10^3/uL (0.0-1.1); MONO % 16 % (0-9); NEUT # 10.1 x10^3/uL (1.8-7.7); NEUT % 65 % (31-73); PLATELET COUNT 258 x10^3/uL (140-400); RED BLOOD COUNT 2.26 x10^6/uL (3.50-5.40); RED CELL DISTRIBUTION WIDTH 17.5 % (11.5-14.5); WHITE BLOOD COUNT 15.5 x10^3/uL (4.0-11.0)
[2019-01-18] MEDS: MEGESTROL 20 MG TABLET. PO SCH (10:02)
[2019-01-18] MEDS: MIDODRINE 5 MG TABLET PO SCH ×3 (10:02→23:08)
[2019-01-18] MEDS: POLYETHYLENE GLYCOL 3350 17 GM PACKET. PO SCH (10:03)
[2019-01-18] MEDS: CETIRIZINE HCL 10 MG TABLET. PO SCH (10:03)
[2019-01-18] MEDS: FLUTICASONE 50MCG/NASAL SPRAY 16GM BOTTLE. NS SCH (10:04)
[2019-01-18 10:37] VITALS: BP 111/70
[2019-01-18] MEDS: INSULIN LISPRO 300 UNITS/3 ML VIAL. SQ SCH ×3 (10:41→18:24)
--- NOTE | 2019-01-18 12:30 | PDOC ---
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 ABDOMEN: Obese, soft, nontender. EXTREMITIES: No edema. Ski No rash NEUROLOGIC: grossly normal No Swan DIAGNOSIS/ASSESSMENT Assessment & Plan ESRD - Per Pt TTS Was on PD- cathter removed after peritonitis x? 2 No indication for Hd today Clotted access- Tunneled HDC replaced 01/17 by IR Anemia- Hgb low ? Acute Vs Chronic - defer to primary Aranesp per protocol HTN- BP at goal Continue home antihypertensives DC per primary COMMENT/RELEVANT DATA Meds Current Medications Medications (Trade) Dose Ordered Sig/María Start Time Stop Time Status Last Admin Dose Admin Acetaminophen/ Hydrocodone Bitart (Lortab 5/325) 1 tab 1X ONCE 01/16/19 16:30 01/16/19 16:31 DC 01/16/19 16:32 1 TAB Albumin Human 200 ml @ 200 mls/hr 1X PRN PRN 01/17/19 11:00 01/17/19 16:59 DC Aspirin (Children'S Aspirin) 324 mg 1X ONCE 01/16/19 13:30 01/16/19 13:31 DC 01/16/19 13:32 324 MG Atorvastatin Calcium (Lipitor) 80 mg QHS 01/16/19 21:00 01/17/19 20:04 80 MG Cefazolin Sodium/ Dextrose 50 ml @ 100 mls/hr 1X ONCE 01/17/19 08:15 01/17/19 08:44 DC 01/17/19 09:08 100 MLS/HR Cetirizine HCl (ZyrTEC) 10 mg DAILY 01/17/19 09:00 01/18/19 10:04 10 MG Darbepoetin Loc (ARANESP for DIALYSIS PTS) 60 mcg Tu 01/17/19 21:00 01/17/19 20:04 60 MCG Dextrose 250 ml PRN Q15MIN PRN 01/16/19 19:45 Dextrose (Dextrose 50%-Water Syringe) 12.5 gm PRN Q15MIN PRN 01/16/19 19:45 Fentanyl Citrate (Fentanyl 2ml Vial) 100 mcg STK-MED ONCE 01/17/19 08:13 01/17/19 08:13 DC Fluticasone Propionate (Flonase) 2 spray DAILY 01/17/19 09:00 01/18/19 10:04 2 SPRAY Info (PHARMACY MONITORING -- do not chart) 1 each PRN DAILY PRN 01/17/19 11:00 Insulin Glargine (Lantus Syringe) 8 unit QHS 01/16/19 21:00 01/17/19 20:56 8 UNIT Insulin Human Lispro (HumaLOG) 0-5 UNITS TIDWMEALS 01/17/19 08:00 01/17/19 08:33 DC Latanoprost (Xalatan) 1 drop QHS 01/16/19 21:00 01/17/19 20:04 1 DROP Levothyroxine Sodium (Synthroid) 175 mcg DAILY06 01/17/19 06:00 01/18/19 05:34 175 MCG Lidocaine/ Epinephrine (LIDOCAINE 1%-EPI 1:100,000 Multi-Dose) 20 ml 1X ONCE 01/17/19 08:15 01/17/19 08:16 DC 01/17/19 09:08 6 ML Megestrol Acetate (Megace) 40 mg DAILY 01/17/19 09:00 01/18/19 10:04 40 MG Midazolam HCl (Versed) 2 mg STK-MED ONCE 01/17/19 08:13 01/17/19 08:13 DC Midodrine (Proamatine) 5 mg TID 01/16/19 21:00 01/18/19 10:04 5 MG Nitroglycerin (Nitrostat) 0.4 mg PRN Q5MIN PRN 01/16/19 13:15 01/17/19 13:14 DC 01/16/19 13:32 0.4 MG Non-Formulary Medication (Omeprazole ) 1 cap DAILY 01/17/19 09:00 UNV Ondansetron HCl (Zofran Odt) 8 mg PRN Q8HRS PRN 01/16/19 20:00 Pantoprazole Sodium (Protonix) 40 mg DAILYAC 01/17/19 07:30 01/18/19 10:04 40 MG Polyethylene Glycol (miraLAX PACKET) 17 gm DAILY 01/17/19 09:00 01/18/19 10:04 17 GM Sodium Chloride 1,000 ml @ 400 mls/hr Q2H30M PRN 01/17/19 11:00 01/17/19 22:59 DC Tramadol HCl (Ultram) 100 mg PRN QHS PRN 01/16/19 19:45 Lab Laboratory Tests Test 01/17/19 17:55 01/17/19 20:40 01/18/19 08:04 01/18/19 08:55 Glucose (Fingerstick) 165 mg/dL (70-99) 184 mg/dL (70-99) 187 mg/dL (70-99) White Blood Count 15.5 x10^3/uL (4.0-11.0) Red Blood Count 2.26 x10^6/uL (3.50-5.40) Hemoglobin 7.5 g/dL (12.0-15.5) Hematocrit 22.9 % (36.0-47.0) Mean Corpuscular Volume 102 fL (79-100) Mean Corpuscular Hemoglobin 33 pg (25-35) Mean Corpuscular Hemoglobin Concent 33 g/dL (31-37) Red Cell Distribution Width 17.5 % (11.5-14.5) Platelet Count 258 x10^3/uL (140-400) Neutrophils (%) (Auto) 65 % (31-73) Lymphocytes (%) (Auto) 17 % (24-48) Monocytes (%) (Auto) 16 % (0-9) Eosinophils (%) (Auto) 1 % (0-3) Basophils (%) (Auto) 1 % (0-3) Neutrophils # (Auto) 10.1 x10^3/uL (1.8-7.7) Lymphocytes # (Auto) 2.7 x10^3/uL (1.0-4.8) Monocytes # (Auto) 2.5 x10^3/uL (0.0-1.1) Eosinophils # (Auto) 0.2 x10^3/uL (0.0-0.7) Basophils # (Auto) 0.1 x10^3/uL (0.0-0.2) Test 01/18/19 11:21 Glucose (Fingerstick) 199 mg/dL (70-99) Results All relevant outside records, renal labs, imaging studies, telemetry/EKG's were reviewed. GRACIELA FRIAS MD Jan 18, 2019 12:30
[2019-01-18 14:23] VITALS: BP 127/66
[2019-01-18 18:11] VITALS: BP 123/65
[2019-01-18] MEDS: CIPROFLOXACIN HCL 250 MG TABLET. PO SCH (18:20)
[2019-01-18] MEDS ORDERED: Epogen (19:31)
[2019-01-18] MEDS ORDERED: humalog (19:51)
[2019-01-18] MEDS: traMADol 50 MG TABLET PO PRN (20:25)
[2019-01-18] MEDS: ATORVASTATIN CALCIUM 40 MG TABLET. PO SCH (23:08)
[2019-01-18] MEDS: LATANOPROST 0.005% OPHTH SOLUTION 2.5ML BOTTLE. OU SCH (23:08)
[2019-01-18] MEDS: INSULIN GLARGINE SYRINGE. SQ SCH (23:20)
[2019-01-18 23:30] VITALS: BP 127/73
[2019-01-19] VITALS (8 sets, daily range): BP systolic 95–142; BP diastolic 66–87
[2019-01-19 04:57] LABS: CALCIUM 9.5 mg/dL (8.5-10.1); CREATININE 6.2 mg/dL (0.6-1.0); GFR 7.9; POTASSIUM 4.4 mmol/L (3.5-5.1)
[2019-01-19] MEDS: LEVOTHYROXINE 175 MCG TABLET PO SCH (06:31)
[2019-01-19] MEDS ORDERED: IV NORMAL SALINE 1000ML BAG 1,000 ML IV PRN ×2 (07:55)
[2019-01-19] MEDS ORDERED: ALBUMIN HUMAN 25% 200 ML IV PRN (08:00)
[2019-01-19] MEDS ORDERED: DIALYSIS PATIENT. MC PRN ×2 (08:00)
--- NOTE | 2019-01-19 08:43 | SNU/HH DC ---
DISCHARGE ORDERS DISCHARGE INFORMATION: FINAL DIAGNOSIS Problems Medical Problems: (1) Acute chest pain Status: Acute (2) Anemia Status: Acute (3) ESRD (end stage renal disease) on dialysis Status: Acute (4) Hypomagnesemia Status: Acute (5) Insulin dependent diabetes mellitus Status: Chronic (6) Leukocytosis Status: Acute (7) Missed dialysis Status: Acute CONDITION ON DISCHARGE: Stable CODE STATUS: Code Status: Full CARE HOME: SNF STAY <30 DAYS: Yes POST DISCHARGE ORDERS: ACTIVITY ORDERS: Other, see below WEIGHT BEARING STATUS: As tolerated DIET AFTER DISCHARGE: Renal WOUND/INCISION CARE: Other, see below CHECKS AFTER DISCHARGE: CHECKS AFTER DISCHARGE: Check blood press - daily, Check blood sugar, ac/hs, Check your Temp as needed TREATMENT/EQUIPMENT ORDERS: ADAPTIVE EQUIPMENT NEEDED: None Physical Therapy For: Evalulation/Treatment Occupational Therapy For: Evaluation/Treatment DISCHARGE MEDICATIONS: Home Meds Reported Medications [humalog] 100 unit/ml No Conflict Check Inject per sliding scale: 150 - 200 2 units 201 - 250 4 units 251 - 300 6 units 301 - 350 8 units 351 - 400 10 units sq before meals and at bedtime for DM Contact physician if >400 01/18/19 [Epogen] No Conflict Check, 94200 UNITS every other week given at dialysis 01/18/19 Cetirizine Hcl (CETIRIZINE HCL) 10 Mg Tablet, 1 TAB PO DAILY for allergies, #30 TAB 5 Refills 01/16/19 Tramadol Hcl (TRAMADOL HCL) 50 Mg Tablet, 100 MG PO HS PRN for PAIN, TAB 0 Refills 01/16/19 Timolol Maleate 0.25% (TIMOPTIC 0.25%) 5 Ml Drops, 5 ML OU HS for GLAUCOMA, DROP 01/16/19 Ondansetron Hcl (ONDANSETRON HCL) 4 Mg Tablet, 8 MG PO PRN Q8HRS PRN for NAUSEA/VOMITING, TAB 01/16/19 Omeprazole (OMEPRAZOLE) 20 Mg Capsule.dr, 1 CAP PO DAILY for GERD, #30 CAP 5 Refills 01/16/19 Polyethylene Glycol 3350 (MIRALAX) 17 Gm Powd.pack, 1 PACKET PO PRN DAILY PRN for CONSTIPATION, #30 PACKET 3 Refills 01/16/19 Midodrine Hcl (MIDODRINE HCL) 5 Mg Tablet, 5 MG PO TID for hypotension, TAB 01/16/19 Megestrol Acetate (MEGESTROL ACETATE) 40 Mg Tablet, 40 MG PO DAILY for appetite stimulant, TAB 01/16/19 Latanoprost (LATANOPROST) 2.5 Ml Drops, 1 DROP EACHEYE QHS for ocular congestion, #7.5 ML 3 Refills 01/16/19 Insulin Glargine,Hum.rec.anlog (LANTUS SOLOSTAR) 100 Unit/1 Ml Insuln.pen, 8 UNIT SQ QHS for diabetes, #15 ML 3 Refills 01/16/19 Insulin Lispro (HUMALOG) 100 Unit/1 Ml Cartridge, 4 UNIT SQ TIDWMEALS for diabetes, EACH 01/16/19 Fluticasone Propionate (Flonase Allergy Relief) 9.9 Ml Flushing.susp, 1 SPRAYS NS BID for allergies, BOTTLE 01/16/19 Esomeprazole Magnesium (NEXIUM CAPSULE) 40 Mg Capsule.dr, 1 CAP PO DAILY for GERD, #30 CAP 5 Refills 01/16/19 Ciprofloxacin Hcl (CIPRO) 500 Mg Tablet, 1 TAB PO DAILY for peritonitis, #20 TAB Daily for bacterial infection for 7 days, ordered Started 01/14/19 01/16/19 Atorvastatin Calcium (ATORVASTATIN CALCIUM) 80 Mg Tablet, 80 MG PO HS for high cholesterol, #90 03/24/16 Levothyroxine Sodium (LEVOTHYROXINE SODIUM) 175 Mcg Tablet, 175 MCG PO DAILY, #90 03/24/16 JOSE LUIS TEIXEIRA MD Jan 19, 2019 08:43
--- NOTE | 2019-01-19 08:46 | PDOC ---
Provider Note Provider Note [id number] JOSE LUIS TEIXEIRA MD Jan 19, 2019 08:46
--- NOTE | 2019-01-19 08:53 | NUR ---
SS following up with discharge planning. SS received notification that pt was from [facility]. SS contacted [facility] [place], ; fax [phone], and confirmed that pt is a usp and rehabilitation pt from there facility and is able to return when medically stable for discharge. SS was notified that pt was seen prior at [facility].
--- NOTE | 2019-01-19 08:56 | DS ---
DATE OF DISCHARGE: 01/19/2019 HOSPITAL SUMMARY: An 78-year-old black female recently discharged from [facility] after treatment for infection of peritoneal dialysis catheter with placement of hemodialysis catheter. The catheter apparently became clogged and she has some chest pain, and came to the ER. Hemoglobin was 7.8; white count 22,000; and MCV 99 on admission. Hemoglobin 7.5 at discharge, white count down to 15,000 without a left shift. Chemistry studies unremarkable with a creatinine of 6.2 consistent with end-stage renal disease and hepatitis B surface antigen was negative. Chest x-ray was clear and while in the hospital, she had replacement of the non-tunneled internal jugular catheter in Interventional Radiology with good performance during hemodialysis. Cipro was continued for her treatment of bacterial peritonitis and Infectious Disease consulted at the request of the family as I saw her at [facility] as well. B12 levels drawn and is pending at this time as she does have a mildly macrocytic indices on her anemia and will be followed as an outpatient. FINAL DIAGNOSES: 1. Failure of non-tunneled dialysis catheter, resolved. 2. End-stage renal disease. 3. Anemia of chronic disease, likely secondary to renal insufficiency. OPERATIONS AND PROCEDURES: Replacement of dialysis catheter. COMPLICATIONS: None. CONSULTATIONS: Dr. Lau of Infectious Disease and Interventional Radiology. DISPOSITION: Continue all home meds same without changes. She continues on Cipro 500 mg daily for treatment of her peritoneal dialysis infection and apparently will be going back on peritoneal dialysis in about a month after this is completed. Hemodialysis will continue at the direction of Dr. Randhawa's group and we will add vitamin B12 to her regimen if her B12 level was low. JOSE LUIS TEIXEIRA MD DR: LATOYA/rahul JOB#: [id number] / [id number]
[2019-01-19] MEDS ORDERED: CIPROFLOXACIN HCL 250 MG TABLET. PO SCH (09:00)
[2019-01-19] MEDS: MIDODRINE 5 MG TABLET PO SCH ×3 (09:00→18:36)
[2019-01-19] MEDS ORDERED: traMADol 50 MG TABLET PO ONE (10:00)
--- NOTE | 2019-01-19 10:37 | PDOC ---
Infectious Disease Note Vital Sign Vital Signs Vital Signs Date Time Temp Pulse Resp B/P (MAP) Pulse Ox O2 Delivery O2 Flow Rate FiO2 01/19/19 10:13 18 01/19/19 07:00 97.9 101 142/82 (102) 98 Room Air 97.9 Labs Lab Laboratory Tests Test 01/18/19 11:21 01/18/19 16:14 01/18/19 23:16 01/19/19 03:00 Glucose (Fingerstick) 199 mg/dL (70-99) 149 mg/dL (70-99) 187 mg/dL (70-99) Sodium Level 138 mmol/L (136-145) Potassium Level 4.4 mmol/L (3.5-5.1) Chloride Level 97 mmol/L (98-107) Carbon Dioxide Level 26 mmol/L (21-32) Anion Gap 15 (6-14) Blood Urea Nitrogen 26 mg/dL (7-20) Creatinine 6.2 mg/dL (0.6-1.0) Estimated GFR (Cockcroft-Gault) 7.9 Glucose Level 196 mg/dL (70-99) Calcium Level 9.5 mg/dL (8.5-10.1) Micro Microbiology 01/16/19 Blood Culture - Preliminary, Resulted NO GROWTH AFTER 2 DAYS Objective Assessment leukocytosis - ? reactive - WBC 16.4 01/13 prior to d/c - has improved since admit CKD on HD Clotted HD cath s/p replacement 01/17 [facility] Recent Peritonitis with Klebsiella and Enterobacter 01/01 sec to infected PD cath - removed 01/05 Plan Plan of Care Agree with cont Cipro as instructed at discharge from [facility]. Should complete about 01/22 Recommend f/u repeat WBC next week to track improvement Thank you # [id number] MAMADOU ACUNA MD Jan 19, 2019 10:37
[2019-01-19] MEDS: INSULIN LISPRO 300 UNITS/3 ML VIAL. SQ SCH ×3 (12:00→17:00)
[2019-01-19] MEDS: PANTOPRAZOLE 40 MG TABLET.DR. PO SCH (12:02)
[2019-01-19] MEDS: POLYETHYLENE GLYCOL 3350 17 GM PACKET. PO SCH (12:02)
[2019-01-19] MEDS: CETIRIZINE HCL 10 MG TABLET. PO SCH (12:02)
[2019-01-19] MEDS: FLUTICASONE 50MCG/NASAL SPRAY 16GM BOTTLE. NS SCH (12:03)
[2019-01-19] MEDS: MEGESTROL 20 MG TABLET. PO SCH (12:03)
[2019-01-19] MEDS: ONDANSETRON ODT 4 MG TAB.RAPDIS. PO PRN ×2 (12:11→20:40)
--- NOTE | 2019-01-19 12:43 | PDOC ---
SUBJECTIVE ROS Seen on HD, tolerating well OBJECTIVE Vital Signs Vital Signs Date Time Temp Pulse Resp B/P (MAP) Pulse Ox O2 Delivery O2 Flow Rate FiO2 01/19/19 12:04 100 01/19/19 10:13 18 01/19/19 07:00 97.9 142/82 (102) 98 Room Air 97.9 I & 0 Intake and Output 01/19/19 07:00 Intake Total 1120 ml Balance 1120 ml Intake Oral 1120 ml # Bowel Movements 1 PHYSICAL EXAM Physical Exam GEN - NAD HEENT: OM moist NECK: supple LUNGS: Clear, Non labored CARDIOVASCULAR: Regular rate. ABDOMEN: Obese, soft, nontender. EXTREMITIES: No edema. Ski No rash NEUROLOGIC: grossly normal No Swan DIAGNOSIS/ASSESSMENT Assessment & Plan ESRD - Per Pt TTS under Dr. Randhawa Was on PD- catheter removed after peritonitis x? 2 ( unsure of the date) No indication for Hd today Clotted access- Tunneled HDC replaced 01/17 by IR Recent Peritonitis- Dced on PO Abx from [facility]( no mention in the available records/chart notes or by patient or family ) I was able to obtain information last evening - Restarted Cipro 500 mg QD last evening after reviewing records -she was dced (01/13) on PO Cipro x 7 days ID on board now for Abx management Anemia- Hgb low ? Acute Vs Chronic - defer to primary Aranesp per protocol HTN- BP at goal Continue home antihypertensives DC per primary Called Pt's daughter right away last evening per her request , left message on her voice mail that to call me back thru office or PMC Daughter would like to talk to Dr. Randhawa directly about some questions about OP Dialysis Discussed with RN , No family at bedside. COMMENT/RELEVANT DATA Meds Current Medications Medications (Trade) Dose Ordered Sig/María Start Time Stop Time Status Last Admin Dose Admin Acetaminophen/ Hydrocodone Bitart (Lortab 5/325) 1 tab 1X ONCE 01/16/19 16:30 01/16/19 16:31 DC 01/16/19 16:32 1 TAB Albumin Human 200 ml @ 200 mls/hr 1X PRN PRN 01/19/19 08:00 01/19/19 13:59 Aspirin (Children'S Aspirin) 324 mg 1X ONCE 01/16/19 13:30 01/16/19 13:31 DC 01/16/19 13:32 324 MG Atorvastatin Calcium (Lipitor) 80 mg QHS 01/16/19 21:00 01/18/19 23:08 80 MG Cefazolin Sodium/ Dextrose 50 ml @ 100 mls/hr 1X ONCE 01/17/19 08:15 01/17/19 08:44 DC 01/17/19 09:08 100 MLS/HR Cetirizine HCl (ZyrTEC) 10 mg DAILY 01/17/19 09:00 01/19/19 12:03 10 MG Ciprofloxacin (Cipro) 500 mg Q24H 01/18/19 19:00 01/18/19 18:25 500 MG Darbepoetin Loc (ARANESP for DIALYSIS PTS) 60 mcg Tu 01/17/19 21:00 01/17/19 20:04 60 MCG Dextrose 250 ml PRN Q15MIN PRN 01/16/19 19:45 Dextrose (Dextrose 50%-Water Syringe) 12.5 gm PRN Q15MIN PRN 01/16/19 19:45 Fentanyl Citrate (Fentanyl 2ml Vial) 100 mcg STK-MED ONCE 01/17/19 08:13 01/17/19 08:13 DC Fluticasone Propionate (Flonase) 2 spray DAILY 01/17/19 09:00 01/19/19 12:04 2 SPRAY Info (PHARMACY MONITORING -- do not chart) 1 each PRN DAILY PRN 01/19/19 08:00 Insulin Glargine (Lantus Syringe) 8 unit QHS 01/16/19 21:00 01/18/19 23:21 8 UNIT Insulin Human Lispro (HumaLOG) 0-5 UNITS TIDWMEALS 01/17/19 08:00 01/17/19 08:33 DC Latanoprost (Xalatan) 1 drop QHS 01/16/19 21:00 01/18/19 23:08 1 DROP Levothyroxine Sodium (Synthroid) 175 mcg DAILY06 01/17/19 06:00 01/19/19 06:31 175 MCG Lidocaine/ Epinephrine (LIDOCAINE 1%-EPI 1:100,000 Multi-Dose) 20 ml 1X ONCE 01/17/19 08:15 01/17/19 08:16 DC 01/17/19 09:08 6 ML Megestrol Acetate (Megace) 40 mg DAILY 01/17/19 09:00 01/19/19 12:04 40 MG Midazolam HCl (Versed) 2 mg STK-MED ONCE 01/17/19 08:13 01/17/19 08:13 DC Midodrine (Proamatine) 5 mg TID 01/16/19 21:00 01/19/19 12:04 5 MG Nitroglycerin (Nitrostat) 0.4 mg PRN Q5MIN PRN 01/16/19 13:15 01/17/19 13:14 DC 01/16/19 13:32 0.4 MG Non-Formulary Medication (Omeprazole ) 1 cap DAILY 01/17/19 09:00 UNV Ondansetron HCl (Zofran Odt) 8 mg PRN Q8HRS PRN 01/16/19 20:00 01/19/19 12:11 8 MG Pantoprazole Sodium (Protonix) 40 mg DAILYAC 01/17/19 07:30 01/19/19 12:03 40 MG Polyethylene Glycol (miraLAX PACKET) 17 gm DAILY 01/17/19 09:00 01/19/19 12:03 17 GM Sodium Chloride 1,000 ml @ 400 mls/hr Q2H30M PRN 01/19/19 07:55 01/19/19 19:54 Tramadol HCl (Ultram) 50 mg 1X ONCE 01/19/19 10:00 01/19/19 10:01 DC 01/19/19 10:13 50 MG Lab Laboratory Tests Test 01/18/19 16:14 01/18/19 23:16 01/19/19 03:00 Glucose (Fingerstick) 149 mg/dL (70-99) 187 mg/dL (70-99) Sodium Level 138 mmol/L (136-145) Potassium Level 4.4 mmol/L (3.5-5.1) Chloride Level 97 mmol/L (98-107) Carbon Dioxide Level 26 mmol/L (21-32) Anion Gap 15 (6-14) Blood Urea Nitrogen 26 mg/dL (7-20) Creatinine 6.2 mg/dL (0.6-1.0) Estimated GFR (Cockcroft-Gault) 7.9 Glucose Level 196 mg/dL (70-99) Calcium Level 9.5 mg/dL (8.5-10.1) Vitamin B12 Level 1569 pg/mL (247-911) Results All relevant outside records, renal labs, imaging studies, telemetry/EKG's were reviewed. GRACIELA FRIAS MD Jan 19, 2019 12:43
--- NOTE | 2019-01-19 14:39 | PDOC2 ---
CARDIAC CONSULT DATE OF CONSULT Date of Consult DATE: 01/19/19 TIME: 14:35 REASON FOR CONSULT Reason for Consult: AMS, tachycardia REFERRING PHYSICIAN Referring Physician: Carlos SOURCE Source: Chart review, Patient HISTORY OF PRESENT ILLNESS HISTORY OF PRESENT ILLNESS This is a pleasant 78 yo female admitted for complains of chest pain possibly related to her HD cath. She had a dialysis catheter placed 9 days ago since she had failed PD with recent peritonitis due to infected PD cath which was removed already. The previous HD catheter got clotted and was replaced. She had dialysis today and was brought back to her room. She was alert this am and was doing well. She came back from dialysis and was a little nauseated. Rehab worked on her and actually went to the bathroom and had a BM and was helped back to bed when her eyes rolled back per staff description and was passed out for <10 sec. Presently she appears tired, no focal symptoms but only oriented to self and place. Denies any MITCHELL, SOA or CP. No arrhythmias were noted on tele. PAST MEDICAL HISTORY Past Medical History Cardiovascular: HTN Pulmonary: No pertinent hx CENTRAL NERVOUS SYSTEM: Other (none) GI: GERD Heme/Onc: Anemia NOS, Cancer (bladder with surgery) Hepatobiliary: No pertinent hx Psych: No pertinent hx Musculoskeletal: Osteoarthritis Rheumatologic: No pertinent hx Infectious disease: No pertinent hx ENT: Other (glaucoma) Renal/: Chronic renal failure (with peritoneal dialysis) Endocrine: Diabetes (type II, uncontrolled) Dermatology: No pertinent hx PAST SURGICAL HISTORY Past Surgical History Cholecystectomy, Total knee replacement (bilateral), Hysterectomy, Other (partia l thyroidectomy; dialysis access catheter) FAMILY HISTORY Family History noncontributory to CV SOCIAL HISTORY Smoke: No ALCOHOL: none Drugs: None Lives: with Family CURRENT MEDICATIONS CURRENT MEDICATIONS Current Medications Medications (Trade) Dose Ordered Sig/María Route PRN Reason Start Time Stop Time Status Last Admin Dose Admin Ciprofloxacin (Cipro) 500 mg Q24H PO 01/18/19 19:00 01/18/19 18:25 Tramadol HCl (Ultram) 50 mg 1X ONCE PO 01/19/19 10:00 01/19/19 10:01 DC 01/19/19 10:13 ALLERGIES ALLERGIES: Coded Allergies: Sulfa (Sulfonamide Antibiotics) (Verified Allergy, Intermediate, 06/22/17) benazepril (Verified Allergy, Intermediate, COUGH, 06/22/17) morphine (Verified Adverse Reaction, Intermediate, HEADACHE, 01/16/19) ROS Review of System limited, confused PHYSICAL EXAM General: Alert, Cooperative, No acute distress HEENT: Atraumatic, Mucous membr. moist/pink Lungs: Other (diminished bases) Heart: Regular rate (SR/ST), Normal S1, Normal S2, Other (2/6 systolic murmur ) Abdomen: Soft, No tenderness Extremities: No cyanosis, No edema Skin: No breakdown, No significant lesion Neuro: Normal speech, Sensation intact Psych/Mental Status: Other (falt affect, oriented to place and self only) VITALS/I&O VITALS/I&O: Vital Signs Date Time Temp Pulse Resp B/P (MAP) Pulse Ox O2 Delivery O2 Flow Rate FiO2 01/19/19 12:04 100 01/19/19 11:30 98.0 18 95/66 (76) 100 Room Air 98.0 I & O 01/18/19 01/18/19 01/19/19 15:00 23:00 07:00 Intake Total 420 ml 670 ml 30 ml Balance 420 ml 670 ml 30 ml LABS Lab: Laboratory Tests Test 01/18/19 16:14 01/18/19 23:16 01/19/19 03:00 01/19/19 11:53 Glucose (Fingerstick) 149 mg/dL (70-99) H 187 mg/dL (70-99) H 195 mg/dL (70-99) H Sodium Level 138 mmol/L (136-145) Potassium Level 4.4 mmol/L (3.5-5.1) Chloride Level 97 mmol/L (98-107) L Carbon Dioxide Level 26 mmol/L (21-32) Anion Gap 15 (6-14) H Blood Urea Nitrogen 26 mg/dL (7-20) H Creatinine 6.2 mg/dL (0.6-1.0) H Estimated GFR (Cockcroft-Gault) 7.9 Glucose Level 196 mg/dL (70-99) H Calcium Level 9.5 mg/dL (8.5-10.1) Vitamin B12 Level 1569 pg/mL (247-911) H Test 01/19/19 14:12 Glucose (Fingerstick) 212 mg/dL (70-99) H Laboratory Tests 01/19/19 03:00 ECHOCARDIOGRAM ECHOCARDIOGRAM <Conclusion> Left ventricle systolic function is normal. The Ejection Fraction is 60-65%. There is normal LV segmental wall motion. Doppler and Color Flow revealed mild mitral regurgitation. Doppler and Color Flow revealed mild tricuspid regurgitation. The PA pressure was estimated at 34 mmHg. DATE: 06/25/16 1317 STRESS TEST STRESS TEST Conclusion 1. No EKG evidence of stress-induced ischemia. 2. Nuclear scanning shows no reversible ischemia or infarct. 3. Normal left ventricular systolic function with an ejection fraction of greater than 70%. 4. Low risk Lexiscan nuclear stress test. DATE: 01/02/16 1220 ASSESSMENT/PLAN ASSESSMENT/PLAN 1. Syncope: possible vasovagal syncope post defecation. No arrhythmias. 2. Encephalopathy/fatigue: currently fatigue with disorientation without focal symptoms. 3. Reactive sinus tach 4. Hx of of orthostasis: on midodrine 5. ESRD 6. DM2: BG was not checked during syncopal event 7. Hypothyroidism 8. HTN: controlled 9. HLP Recommendations 1. Check orthostatic readings. Noncontrast CT head 2. Continue with secondary prevention measures. Fluid off loading per HD 3. Check TSH, T4. TTE today. IV bolus 4. Supportive care. JACK BECERRIL APRN Jan 19, 2019 14:39
--- NOTE | 2019-01-19 15:01 | EKG ---
[facility] [address] [place] [address] Test Date: 2019-01-19 Test Time: 15:56:17 Pat Name: CLARISSA PUGH Department: Room: 262 1 Gender: F Tetryl Wringer Operator: ROSARIO : 1940 Requested By: JACK BECERRIL Order Number: [id number] Reading MD: Measurements Intervals [place] Rate: 109 P: MO: QRS: 3 QRSD: 68 T: 55 QT: 328 QTc: 443 Interpretive Statements SINUS TACHYCARDIA NO SPECIFIC ECG ABNORMALITIES RI6.01 Compared to ECG 06/23/2016 18:04:04 Sinus rhythm no longer present Left-axis deviation no longer present Prolonged QT interval no longer present
--- NOTE | 2019-01-19 16:17 | NUR ---
DALTON following pt. DALTON phoned and faxed referral to [facility], [phone], fax: [phone]. DALTON left a message to Laurie at admissions. Pt acceptance and admission pending. Will continue to follow.
[2019-01-19] MEDS ORDERED: IV NORMAL SALINE 250ML 250 ML IV ONE (17:00)
[2019-01-19] MEDS: ATORVASTATIN CALCIUM 40 MG TABLET. PO SCH (21:44)
[2019-01-19] MEDS: LACTOBACILLUS RHAMNOSUS GG 1 CAPSULE. PO SCH (21:45)
[2019-01-19] MEDS: CIPROFLOXACIN HCL 250 MG TABLET. PO SCH (21:46)
[2019-01-19] MEDS: LATANOPROST 0.005% OPHTH SOLUTION 2.5ML BOTTLE. OU SCH (21:46)
[2019-01-19] MEDS: INSULIN GLARGINE SYRINGE. SQ SCH (21:55)
[2019-01-19] MEDS: traMADol 50 MG TABLET PO PRN (21:58)
[2019-01-20 03:07] VITALS: BP 122/78
--- NOTE | 2019-01-20 04:01 | CONS ---
DATE OF CONSULTATION: 01/19/2019 LOCATION: The patient's room is 262. However, she was seen in the Dialysis Center. REASON FOR CONSULTATION: History of peritonitis. REQUESTING PHYSICIAN: Dr. Oleg Gonzalez. HISTORY OF PRESENT ILLNESS: The patient is an 78-year-old female recently admitted to [facility] in early January and was found to have peritonitis secondary to a peritoneal dialysis catheter infection. Cultures were positive at that time for Enterobacter as well as Klebsiella. Her PD catheter was removed and she was subsequently stabilized and transitioned to oral ciprofloxacin. She was transferred to [facility]. On 01/13, prior to her discharge, her white blood cell count was 16.4. She was transferred to [facility] to [facility] approximately 01/17 after she developed some pain and was found to have a clogged hemodialysis catheter. She was taken to Interventional Radiology and attempted to open the catheter; however, she subsequently underwent replacement of the catheter. On arrival to [facility] on the , she had a white blood cell count of 22.1. Her catheter was placed on the . She was given a dose of cefazolin and yesterday her white blood cell count improved to 15.5. She has been afebrile since her presentation on the . Currently, she is undergoing dialysis and states she is doing okay, does feel hot at times, has no gross headaches. States she has a dry mouth. No sore throat. Has occasional cough and does have occasional pain in her abdomen area. Denies any falls, traumas, or rashes. PAST MEDICAL HISTORY: Positive for dialysis catheter tip and positive infection with MRSA in May 2017. Also, has peritonitis with Strep viridans, Haemophilus, coagulase-negative staph. She has chronic kidney disease, on hemodialysis, now with previous peritoneal dialysis, diabetes, hypertension, hypothyroidism, gastroesophageal reflux disease, anemia of chronic disease, secondary hyperparathyroidism, chronic pancreatitis, morbid obesity and chronic back pain. PAST SURGICAL HISTORY: Positive for cholecystectomy, bilateral knee arthroplasties, hysterectomy, thyroidectomy, PD catheter placements and removals with synovial cysts of the spine and dialysis catheter placements. REVIEW OF SYSTEMS: Otherwise negative. SOCIAL HISTORY: Prior to admission to [facility], she lived at home with family. Currently, she is at [facility]. No tobacco or alcohol. FAMILY HISTORY: Noncontributory. ALLERGIES: SULFA, BENAZEPRIL AND MORPHINE. CURRENT MEDICATIONS: Her Cipro has been restarted. She is on Lipitor, Zyrtec, ____, cortisone, insulin, levothyroxine, Megace, Midrin and Protonix. PHYSICAL EXAMINATION: VITAL SIGNS: She has been afebrile, temperature is 97.9, pulse 101, currently on dialysis, respiratory rate 18, blood pressure 142/82 and satting 98% on room air. CONSTITUTIONAL: She is lying slightly on her left side. She is in no acute distress. She is cooperative. HEENT: Pupils are equal and reactive. Oral cavity, pharynx is clear. NECK: Supple. No JVD. IJ hemodialysis catheter without signs of complications. LUNGS: Decreased in bases. HEART: S1, S2. ABDOMEN: Obese, soft. Previous peritoneal catheter site without complications. There is no guarding or rebound. Decreased, but positive bowel sounds. EXTREMITIES: No clubbing, cyanosis, or gross edema. SKIN: Warm to touch without signs of rash. NEUROLOGIC: She is nonfocal. Affect is little bit flat. LABORATORY DATA: Laboratory values from the , white count 5.5, hemoglobin 10.5, platelets of 258, neutrophils 65, lymphs are 17, monocytes 16. Most recent glucose of 196, creatinine 6.2. Chest x-ray from the tortuous thoracic aorta, mild asymmetric left hemidiaphragm, no lobar infiltrate, effusion, or pneumothorax. Blood cultures from the are negative for 2 days. IMPRESSION: 1. Leukocytosis, questionable reactive now with a clotted hemodialysis catheter that has been replaced, it had been 16.4 on the prior to discharge from [facility] and has had improved since admission. 2. Chronic kidney disease, on hemodialysis. 3. Clotted hemodialysis catheter, status post replacement on the , of the left IJ. 4. Recent peritonitis with Klebsiella and Enterobacter on the secondary to infected Port-A-Cath that was removed on 01/05. RECOMMENDATIONS: Agree with continuing Cipro as instructed at discharge from [facility]. Should complete this about on 01/22 or so. Recommend follow up repeat white blood cell count next week to track improvement. Thank you for allowing me to participate in the patient's care. Should you have any further questions, please do not hesitate to contact me. MAMADOU ACUNA MD DR: Alexia JOB#: [id number] / [id number]
[2019-01-20] MEDS: LEVOTHYROXINE 175 MCG TABLET PO SCH (06:43)
[2019-01-20] MEDS: MIDODRINE 5 MG TABLET PO SCH (06:44)
[2019-01-20 07:00] VITALS: BP 115/65
[2019-01-20] MEDS: INSULIN LISPRO 300 UNITS/3 ML VIAL. SQ SCH (08:00)
--- NOTE | 2019-01-20 08:39 | PDOC ---
Provider Note Provider Note sleeping, refused ct head but no more events- B12 ok re anemia- likely depresssed- would add kelly re anorexia JOSE LUIS TEIXEIRA MD Jan 20, 2019 08:39
[2019-01-20] MEDS: FLUTICASONE 50MCG/NASAL SPRAY 16GM BOTTLE. NS SCH (09:00)
[2019-01-20] MEDS: POLYETHYLENE GLYCOL 3350 17 GM PACKET. PO SCH (09:00)
[2019-01-20] MEDS: LACTOBACILLUS RHAMNOSUS GG 1 CAPSULE. PO SCH (09:00)
[2019-01-20] MEDS: CETIRIZINE HCL 10 MG TABLET. PO SCH (09:00)
--- NOTE | 2019-01-20 09:19 | NUR ---
DALTON following pt. DALTON left a voice mail to Laurie at [facility] SNU admission, requesting a call back. Will continue to follow
--- NOTE | 2019-01-20 10:41 | NUR ---
SW following pt. Spoke with Laurie at [facility], She requested orders to be resigned by today's date or they won't be able to take pt. She also reported she will reach out to Jm Dominguez regarding pt's chair time. Discussed with RN and RN to notify Physician regarding orders.
[2019-01-20 11:00] VITALS: BP 105/70
--- NOTE | 2019-01-20 13:19 | CARD ---
MR#: [id number] Date of Study: 01/20/2019 Ordering Physician: JACK BECERRIL, Referring Physician: JACK BECERRIL, Tech: Jigna Garcia [facility] APPROVED REPORT EXAM: Two-dimensional and M-mode echocardiogram with Doppler and color Doppler. Other Information Quality : Technically LimitedHR: 109bpm Rhythm : TachycardiaTechnically limited study due to body habitus & port placement. INDICATION Syncope 2D DIMENSIONS RVDd3.2 (2.9-3.5cm)Left Atrium(2D)2.3 (1.6-4.0cm) IVSd1.4 (0.7-1.1cm)Aortic Root(2D)2.8 (2.0-3.7cm) LVDd3.8 (3.9-5.9cm)LVOT Diameter1.7 (1.8-2.4cm) PWd1.1 (0.7-1.1cm)LVDs2.3 (2.5-4.0cm) FS (%) 38.7 %SV42.3 ml LVEF(%)69.8 (>50%) Aortic Valve AoV Peak Madi.127.3cm/sAoV VTI15.4cm AO Peak GR.6.5mmHgLVOT VTI 13.71cm AO Mean GR.3mmHg Mitral Valve MV E Eucuebgu26.9cm/sMV DECEL WTLF379gr MV A Cyijflax117.6cm/sE/A Ratio0.5 MV A Kkzgaftb21ka Tricuspid Valve TR P. Ggsaxxxz012rr/sRAP [id number] TR Peak Gr.18evLwHAFO75aaVx LEFT VENTRICLE The left ventricle is normal size. There is mild concentric left ventricular hypertrophy. The left ve ntricular systolic function is normal and the ejection fraction is within normal range. The Ejection Fraction is 65-70%. Unable to determine wall motion due to limited images. Grossly normal. Tissue Dop pler imaging reveals moderate left ventricular diastolic dysfunction. RIGHT VENTRICLE The right ventricle is normal size. There is normal right ventricular wall thickness. The right ventr icular systolic function is normal. ATRIA The left atrium size is normal. The right atrium size is normal. The interatrial septum is intact wit h no evidence for an atrial septal defect or patent foramen ovale as noted on 2-D or Doppler imaging. AORTIC VALVE The aortic valve is not well visualized. Doppler and Color Flow revealed no significant aortic regurg itation. There is no significant aortic valvular stenosis. MITRAL VALVE Not well visualized. There is no evidence of mitral valve prolapse. There is no mitral valve stenosis . Doppler and Color-flow revealed trace mitral regurgitation. TRICUSPID VALVE Not well visualized. Doppler and Color Flow revealed trace tricuspid regurgitation. The PA pressure w as estimated at 26 mmHg. There is no tricuspid valve prolapse or vegetation. There is no tricuspid va lve stenosis. PULMONIC VALVE The pulmonic valve is not well visualized. GREAT VESSELS The aortic root is normal in size. The ascending aorta is normal in size. The IVC is normal in size a nd collapses >50% with inspiration. PERICARDIAL EFFUSION There is no evidence of significant pericardial effusion. Critical Notification Critical Value: No <Conclusion> The left ventricular systolic function is normal and the ejection fraction is within normal range. Th e Ejection Fraction is 65-70%. Unable to determine wall motion due to limited images. Grossly normal. Signed by : Felix Eubanks, Electronically Approved : 01/20/2019 13:18:50
--- NOTE | 2019-01-20 13:48 | PDOC ---
SUBJECTIVE ROS Anorexia per RN, pt doesn't interact OBJECTIVE Vital Signs Vital Signs Date Time Temp Pulse Resp B/P (MAP) Pulse Ox O2 Delivery O2 Flow Rate FiO2 01/20/19 08:00 Room Air 2.0 01/20/19 07:00 98.0 107 18 115/65 (82) 97 98.0 I & 0 Intake and Output 01/20/19 06:59 Intake Total 120 ml Balance 120 ml Intake Oral 120 ml PHYSICAL EXAM Physical Exam GEN - NAD HEENT: OM moist NECK: supple LUNGS: Clear, Non labored CARDIOVASCULAR: Regular rate. ABDOMEN: Obese, soft, nontender. EXTREMITIES: No edema. Ski No rash NEUROLOGIC: grossly normal No Swan DIAGNOSIS/ASSESSMENT Assessment & Plan ESRD - Per Pt TTS under Dr. Randhawa Was on PD- catheter removed after peritonitis x? 2 ( unsure of the date) Clotted access- Tunneled HDC replaced 01/17 by IR Recent Peritonitis- Discharged on PO Abx from [facility] , ID managing Anemia- On Aranesp HTN- BP at goal Continue home antihypertensives DC per primary COMMENT/RELEVANT DATA Meds Current Medications Medications (Trade) Dose Ordered Sig/María Start Time Stop Time Status Last Admin Dose Admin Acetaminophen/ Hydrocodone Bitart (Lortab 5/325) 1 tab 1X ONCE 01/16/19 16:30 01/16/19 16:31 DC 01/16/19 16:32 1 TAB Albumin Human 200 ml @ 200 mls/hr 1X PRN PRN 01/19/19 08:00 01/19/19 13:59 DC Aspirin (Children'S Aspirin) 324 mg 1X ONCE 01/16/19 13:30 01/16/19 13:31 DC 01/16/19 13:32 324 MG Atorvastatin Calcium (Lipitor) 80 mg QHS 01/16/19 21:00 01/19/19 22:01 80 MG Cefazolin Sodium/ Dextrose 50 ml @ 100 mls/hr 1X ONCE 01/17/19 08:15 01/17/19 08:44 DC 01/17/19 09:08 100 MLS/HR Cetirizine HCl (ZyrTEC) 10 mg DAILY 01/17/19 09:00 01/19/19 12:03 10 MG Ciprofloxacin (Cipro) 500 mg Q24H 01/18/19 19:00 01/19/19 22:01 500 MG Darbepoetin Loc (ARANESP for DIALYSIS PTS) 60 mcg Tu 01/17/19 21:00 01/17/19 20:04 60 MCG Dextrose 250 ml PRN Q15MIN PRN 01/16/19 19:45 Dextrose (Dextrose 50%-Water Syringe) 12.5 gm PRN Q15MIN PRN 01/16/19 19:45 Fentanyl Citrate (Fentanyl 2ml Vial) 100 mcg STK-MED ONCE 01/17/19 08:13 01/17/19 08:13 DC Fluticasone Propionate (Flonase) 2 spray DAILY 01/17/19 09:00 01/19/19 12:04 2 SPRAY Info (PHARMACY MONITORING -- do not chart) 1 each PRN DAILY PRN 01/19/19 08:00 Insulin Glargine (Lantus Syringe) 8 unit QHS 01/16/19 21:00 01/19/19 22:01 8 UNIT Insulin Human Lispro (HumaLOG) 0-5 UNITS TIDWMEALS 01/17/19 08:00 01/17/19 08:33 DC Lactobacillus Rhamnosus (Culturelle) 1 cap BID 01/19/19 21:00 01/19/19 22:01 1 CAP Latanoprost (Xalatan) 1 drop QHS 01/16/19 21:00 01/19/19 22:01 1 DROP Levothyroxine Sodium (Synthroid) 175 mcg DAILY06 01/17/19 06:00 01/20/19 06:46 175 MCG Lidocaine/ Epinephrine (LIDOCAINE 1%-EPI 1:100,000 Multi-Dose) 20 ml 1X ONCE 01/17/19 08:15 01/17/19 08:16 DC 01/17/19 09:08 6 ML Megestrol Acetate (Megace) 40 mg DAILY 01/17/19 09:00 01/20/19 08:41 DC 01/19/19 12:04 40 MG Midazolam HCl (Versed) 2 mg STK-MED ONCE 01/17/19 08:13 01/17/19 08:13 DC Midodrine (Proamatine) 5 mg [id number] 01/19/19 18:00 01/20/19 06:46 5 MG Mirtazapine (Remeron) 15 mg QHS 01/20/19 21:00 Nitroglycerin (Nitrostat) 0.4 mg PRN Q5MIN PRN 01/16/19 13:15 01/17/19 13:14 DC 01/16/19 13:32 0.4 MG Non-Formulary Medication (Omeprazole ) 1 cap DAILY 01/17/19 09:00 UNV Ondansetron HCl (Zofran Odt) 8 mg PRN Q8HRS PRN 01/16/19 20:00 01/19/19 20:41 8 MG Pantoprazole Sodium (Protonix) 40 mg DAILYAC 01/17/19 07:30 01/19/19 12:03 40 MG Polyethylene Glycol (miraLAX PACKET) 17 gm DAILY 01/17/19 09:00 01/19/19 12:03 17 GM Sodium Chloride 250 ml @ 250 mls/hr 1X ONCE 01/19/19 17:00 01/19/19 17:59 DC 01/19/19 18:36 250 MLS/HR Tramadol HCl (Ultram) 50 mg 1X ONCE 01/19/19 10:00 01/19/19 10:01 DC 01/19/19 10:13 50 MG Lab Laboratory Tests Test 01/19/19 14:12 01/19/19 16:56 01/19/19 20:52 01/20/19 08:28 Glucose (Fingerstick) 212 mg/dL (70-99) 167 mg/dL (70-99) 192 mg/dL (70-99) 189 mg/dL (70-99) Test 01/20/19 12:03 Glucose (Fingerstick) 212 mg/dL (70-99) Results All relevant outside records, renal labs, imaging studies, telemetry/EKG's were reviewed. GRACIELA FRIAS MD Jan 20, 2019 13:48
--- NOTE | 2019-01-20 14:05 | NUR ---
DALTON following pt. Orders faxed to [facility] and pt will transport via facility arranged w/c maggi at 1500. Pt's daughter, Jonathan Logan, phone: [phone] notified of plan. DALTON also spoke with a nurse at [facility] and faxed clinicals. Packet on chart and discussed with RN. Addendum: 01/20/19 at 1409 by MISAEL HOFFMAN Request for SNU eval at [facility] was made by pt's family as they did not want [facility] to [facility].
--- NOTE | 2019-01-20 15:00 | NUR ---
Report given to [facility] rehab center nurse. PIV and heart monitor removed. Transportation here, escorted patient per wheelchair off unit.
[2019-01-20] MEDS ORDERED: MIRTAZAPINE 15 MG TABLET PO SCH (21:00)
== END 2019-01-20 15:00 | DRG 286 ==
LOC: ER 12:52 → ED HOLD 14:33 → 2 SOUTH 16:53
PROVIDERS: ADMIT Family Medicine; ATTEND Family Medicine
PROC: 5A1D70Z Performance of Urinary Filtration, Intermittent, Less than 6 Hours Per Day (ICD-10-PCS; 2019-01-17)
PROC: 0JPV3XZ Removal of Tunneled Vascular Access Device from Upper Extremity Subcutaneous Tissue and Fascia, Percutaneous Approach (ICD-10-PCS; principal; 2019-01-18)
PROC: B2141ZZ Fluoroscopy of Right Heart using Low Osmolar Contrast (ICD-10-PCS; 2019-01-18)
PROC: 02PYX3Z Removal of Infusion Device from Great Vessel, External Approach (ICD-10-PCS; 2019-01-18)
PROC: 02H633Z Insertion of Infusion Device into Right Atrium, Percutaneous Approach (ICD-10-PCS; 2019-01-18)
DX: T82.41XA Breakdown (mechanical) of vascular dialysis catheter, initial encounter (principal); N18.6 End stage renal disease; E43 Unspecified severe protein-calorie malnutrition; G93.40 Encephalopathy, unspecified; K86.1 Other chronic pancreatitis; N25.81 Secondary hyperparathyroidism of renal origin; I12.0 Hypertensive chronic kidney disease with stage 5 chronic kidney disease or end stage renal disease; D63.1 Anemia in chronic kidney disease; E11.22 Type 2 diabetes mellitus with diabetic chronic kidney disease; E83.42 Hypomagnesemia; E89.0 Postprocedural hypothyroidism; E78.5 Hyperlipidemia, unspecified; H40.9 Unspecified glaucoma; K21.9 Gastro-esophageal reflux disease without esophagitis; Z79.4 Long term (current) use of insulin; Z82.49 Family history of ischemic heart disease and other diseases of the circulatory system; Z85.51 Personal history of malignant neoplasm of bladder; Z86.14 Personal history of Methicillin resistant Staphylococcus aureus infection; Z96.653 Presence of artificial knee joint, bilateral; Z99.2 Dependence on renal dialysis; Z90.710 Acquired absence of both cervix and uterus; Z83.3 Family history of diabetes mellitus; E66.01 Morbid (severe) obesity due to excess calories; G89.29 Other chronic pain; M19.90 Unspecified osteoarthritis, unspecified site; Z88.2 Allergy status to sulfonamides; Z88.8 Allergy status to other drugs, medicaments and biological substances; Z68.31 Body mass index [BMI] 31.0-31.9, adult
CPT/HCPCS: 36415; 36581; 71045; 77001; 80048; 80053; 82550; 82607; 82962; 83605; 83690; 83735; 83880; 84436; 84443; 84484; 85007; 85025; 85610; 87040; 87340; 93005; 93306; 99152; C1750; C1769; J0696; J0882; J1815; J2250; J3010; J3490; J7050; Q0162; 97530; 99285-25; G0378; J7030